=== PATIENT | female | born 1950 | race Hispanic/Latino ===

== ENCOUNTER 2016-08-29 14:44 | Emergency (ER) | payer MEDICARE, BC ==
[2016-08-29 15:18] VITALS: BMI 29.2
[2016-08-29 15:24] VITALS: TEMP 98; O2SAT 96
--- NOTE | 2016-08-29 15:25 | ED PDOC ---
Arrival/HPI - General Historian: Patient, Spouse <Dorian Ashford - Last Filed: 08/29/16 15:20> <Beckie Gomez - Last Filed: 08/29/16 17:29> - General Chief Complaint: Trauma Time Seen by Provider: 08/29/16 14:52 - History of Present Illness Narrative History of Present Illness (Text): 08/29/16 15:20 66 y/o female with hx coronary disease, PVD, DM, left BKA presenting with s/p fall at home. Patient states she was transferring from her walker to a chair when the walker slipped out from here causing her to fall. The patient fell onto her right hip. She is currently complaining right hip pain which is exacerbated with leg movement. Patient denies syncope, LOC, convulsions or focal deficits. She further denies back pain or neck pain. (Dorian Ashford) Past Medical History - Provider Review Nursing Documentation Reviewed: Yes - Infectious Disease Hx of Infectious Diseases: None - Tetanus Immunization Tetanus Immunization: Unknown - Cardiac Hx Hypertension: Yes - Pulmonary Hx Respiratory Disorders: No - Neurological Hx Neurological Disorder: Yes Hx Migraine: Yes Hx Transient Ischemic Attacks (TIA): Yes - HEENT Hx HEENT Disorder: Yes Hx Cataracts: Yes (right eye) - Renal Hx Renal Disorder: Yes - Endocrine/Metabolic Hx Diabetes Mellitus Type 2: Yes - Hematological/Oncological Hx Shingles: Yes (3 years ago) - Integumentary Hx Dermatological Disorder: No - Musculoskeletal/Rheumatological Hx Musculoskeletal Disorders: Yes Hx Falls: No Hx Unsteady Gait: Yes (left BKA 2 weeks ago,immobile) - Gastrointestinal Hx Gastrointestinal Disorders: Yes Hx Gastroesophageal Reflux: Yes Other/Comment: gastritis,colon polyps - Genitourinary/Gynecological Hx Genitourinary Disorders: No - Psychiatric Hx Psychophysiologic Disorder: Yes Hx Anxiety: Yes Hx Depression: Yes Hx Substance Use: No - Surgical History Hx Coronary Artery Bypass Graft: Yes - Anesthesia Hx Anesthesia Reactions: No Hx Malignant Hyperthermia: No - Suicidal Assessment Feels Threatened In Home Enviroment: No <Dorian Ashford - Last Filed: 08/29/16 15:20> Family/Social History Family/Social History: Unknown Family HX Smoking Status: Never Smoked Hx Alcohol Use: No Hx Substance Use: No Hx Substance Use Treatment: No <Dorian Ashford - Last Filed: 08/29/16 15:20> Allergies/Home Meds <MakedaDorian quiroz - Last Filed: 08/29/16 15:20> <Beckie Gomez - Last Filed: 08/29/16 17:29> Allergies/Adverse Reactions: Allergies No Known Allergies Allergy (Verified 08/29/16 15:27) Home Medications: Home Meds Medication Instructions Recorded Confirmed Aspirin [Aspir 81] 81 mg PO DAILY 10/12/13 08/29/16 Glipizide 10 mg PO BID 03/21/15 08/29/16 Insulin Human NPH [Humulin N] 10 units SC BID 07/24/15 08/29/16 Metformin HCl [Glucophage] 1,000 mg PO BID 07/24/15 08/29/16 Insulin Human Regular-MED [HumuLIN 0 units SC .LUNCH AND HS 08/03/15 08/29/16 R MED] ALPRAZolam [Xanax] 0.5 mg PO BID 08/29/16 08/29/16 Atorvastatin [Lipitor] 10 mg PO HS 08/29/16 08/29/16 Clopidogrel [Plavix] 75 mg PO DAILY 08/29/16 08/29/16 Review of Systems - Physician Review All systems were reviewed & negative as marked: Yes - Review of Systems Constitutional: absent: Fatigue, Fevers Eyes: Normal ENT: Normal Respiratory: absent: SOB, Cough Cardiovascular: absent: Chest Pain, Palpitations Gastrointestinal: absent: Abdominal Pain, Diarrhea, Nausea, Vomiting Genitourinary Female: absent: Dysuria, Frequency, Hematuria Musculoskeletal: Other (right hip pain ). absent: Back Pain, Neck Pain Skin: absent: Rash, Pruritis Neurological: absent: Headache Psychiatric: absent: Anxiety, Depression <Dorian Ashford - Last Filed: 08/29/16 15:20> Physical Exam Vital Signs Reviewed: Yes Temperature: Afebrile Blood Pressure: Normal Pulse: Regular Respiratory Rate: Normal Appearance: Positive for: Well-Appearing Pain Distress: Mild Mental Status: Positive for: Alert and Oriented X 3 - Systems Exam Head: Present: Atraumatic, Normocephalic Pupils: Present: PERRL Extroacular Muscles: Present: EOMI Conjunctiva: Present: Normal Mouth: Present: Moist Mucous Membranes Neck: Present: Normal Range of Motion Respiratory/Chest: Present: Clear to Auscultation, Good Air Exchange. No: Respiratory Distress Cardiovascular: Present: Regular Rate and Rhythm, Normal S1, S2 Abdomen: Present: Normal Bowel Sounds. No: Tenderness, Distention Upper Extremity: Present: Normal Inspection. No: Cyanosis, Edema Lower Extremity: Present: Edema, NORMAL PULSES, Neurovascularly Intact. No: Normal Inspection (left BKA with prosthetic. right leg with decreased ROM 2/2 pain. no gross deformity. ) Neurological: Present: GCS=15, CN II-XII Intact, Speech Normal. No: Motor Func Grossly Intact Skin: Present: Warm, Dry. No: Rashes Psychiatric: Present: Alert, Oriented x 3, Normal Insight, Normal Concentration <Dorian Ashford - Last Filed: 08/29/16 15:20> Vital Signs Temp Pulse Resp BP Pulse Ox 08/29/16 16:57 86 18 135/65 96 08/29/16 15:22 98.0 F 91 H 16 137/66 96 08/29/16 15:18 98.2 F 86 18 137/80 97 Medical Decision Making <Dorian Ashford - Last Filed: 08/29/16 15:20> <Beckie Gomez - Last Filed: 08/29/16 17:29> ED Course and Treatment: 08/29/16 15:28 66 y/o female with multiple medical problems including coronary disease, PVD, DM presenting s/p mechanical fall with right hip trauma. Patient has tenderness over lateral right hip. There is no gross deformity or malrotation. Leg is neurovascularly intact. - right pelvis xray w/3 views - right femor xray 2 view - Toradol for pain - reassess (Dorian Ashford) 08/29/16 17:25 Patient seen by resident and then evaluated by me. Patient is presenting after mechanical fall after transferring from wheelchair. She fell backwards hitting her R hip. She denies head trauma or LOC. The fall was witnessed. She is AAOx3 and is complaining of pinpoint pain to R hip. She has normal ROM of R leg. she has no other complaints. Xray negative for fracture. Had extensive conversation with the family. They report that patient is having more difficulty living with her aged at home but they report they are not ready to discuss usp care. They report that they have already tried PT/ OT. They report that they feel comfortable taking patient home and will follow- up with Dr. Hayes. They will return with any change. Transport arranged home 08/29/16 17:28 (Beckie Gomez) - RAD Interpretation Radiology Orders: 08/29/16 15:25 FEMUR MIN 2 VIEWS RT [RAD] Stat 08/29/16 15:32 Hip Right [HIP MIN 2V W/ PELVIS RT] [RAD] Stat - Medication Orders Current Medication Orders: Discontinued Medications Ketorolac Tromethamine (Toradol) 30 mg IVP STAT STA Stop: 08/29/16 15:20 Last Admin: 08/29/16 15:53 Dose: 30 MG IVP Administration Document 08/29/16 15:53 SF (Rec: 08/29/16 15:54 SF [id number] Charges for Administration # of IVP Administrations 1 Ketorolac Tromethamine (Toradol) 60 mg IM STAT STA Stop: 08/29/16 15:56 Disposition/Present on Arrival - Present on Arrival History of DVT/PE: No History of Uncontrolled Diabetes: No Urinary Catheter: No History Surgical Site Infection Following: Orthopedic Procedures <Dorian Ashford - Last Filed: 08/29/16 15:20> - Present on Arrival Any Indicators Present on Arrival: No - Disposition Have Diagnosis and Disposition been Completed?: Yes Disposition Time: 17:27 Patient Plan: Discharge <Beckie Gomez - Last Filed: 08/29/16 17:29> - Disposition Diagnosis: Hip pain, acute Disposition: HOME/ ROUTINE Condition: GOOD Discharge Instructions (ExitCare): Hip Pain (ED) Additional Instructions: Follow up with Dr. Hayes within 2 days. Return to ED if condition worsens. Motrin or tylenol for pain.
[2016-08-29 16:58] VITALS: BP 135/65; PULSE 86; RESP 18
--- NOTE | 2016-08-29 17:16 | RAD ---
PROCEDURE: Right Hip and pelvis Radiographs. HISTORY: hip pain after fall COMPARISON: None. FINDINGS: BONES: Normal. No fracture. JOINTS: Normal. SOFT TISSUES: Normal. OTHER FINDINGS: Vascular calcifications are seen. Some degenerative changes are seen around the greater trochanter IMPRESSION: No evidence of acute fracture
--- NOTE | 2016-08-29 17:20 | RAD ---
PROCEDURE: Right Femur Radiographs. HISTORY: fall with hip pain COMPARISON: None. TECHNIQUE: AP and Lateral Radiographs of the right femur. FINDINGS: FEMUR: Normal. No fracture. SOFT TISSUES: Normal. OTHER FINDINGS: None. IMPRESSION: Unremarkable radiographs of the right femur.
== END 2016-08-29 17:43 | disposition short-term general hospital (02) ==
LOC: ED 14:44
DX: M25.551 Pain in right hip (principal); I10 Essential (primary) hypertension; E11.9 Type 2 diabetes mellitus without complications; I73.9 Peripheral vascular disease, unspecified; Z89.512 Acquired absence of left leg below knee
CPT/HCPCS: 73502; 73552; 82948; 96372; 96374; 99285; J1885

== ENCOUNTER 2016-10-19 04:51 | Inpatient (IN) | payer MEDICARE, BC ==
[2016-10-19] MEDS ORDERED: Piperacill/Tazo 4.5gm in NS 4.5 GM/100 ML BAG IVPB STA (05:04)
[2016-10-19] MEDS ORDERED: Vancomycin 1gm in NS 250ml 1 GM/250 ML BAG IVPB STA (05:04)
[2016-10-19 05:19] LABS: ADD MANUAL DIFF? NO
[2016-10-19 05:21] LABS: VENOUS BLOOD GAS BASE EXCESS 1.2 mmol/L (0.0-2.0); VENOUS BLOOD PH 7.41 (7.32-7.43)
[2016-10-19 05:29] LABS: BASO # 0.03 K/mm3 (0.0-2.0); BASO % 0.2 % (0.0-3.0); EOS # 0.1 (0.0-0.7); EOS % 0.3 % (1.5-5.0); GRAN # 14.84 (1.4-6.5); GRAN % 84.2 % (50.0-68.0); HEMATOCRIT 40.8 % (36.0-48.0); LYMPH # 2.2 (1.2-3.4); LYMPH % 12.4 % (22.0-35.0); MEAN CELL VOLUME 85.9 fL (80.0-105.0); MEAN CORPUSCULAR HEMOGLOBIN 29.1 pg (25.0-35.0); MEAN CORPUSCULAR HGB CONC 33.8 g/dl (31.0-37.0); MEAN PLATELET VOLUME 10.9 fl (7.0-11.0); MONO # 0.5 (0.1-0.6); MONO % 2.9 % (1.0-6.0); PLATELET COUNT 327 10^3/uL (120.0-450.0); RED CELL DISTRIBUTION WIDTH 14.2 % (11.5-14.5); WHITE BLOOD COUNT 17.6 10^3/ul (4.5-11.0)
--- NOTE | 2016-10-19 05:32 | ED PDOC ---
Arrival/HPI - General Chief Complaint: Altered Mental Status Time Seen by Provider: 10/19/16 05:03 Historian: Patient, Family - History of Present Illness Narrative History of Present Illness (Text): 10/19/16 05:41 A 66 year old female, presents to the emergency department because of fever and altered mental status. Patient's daughter reports patient has been weak and lethargic throughout the day. Symptom Onset: Sudden Symptom Course: Unchanged Activities at Onset: Rest Context: Home Past Medical History - Provider Review Nursing Documentation Reviewed: Yes - Infectious Disease Hx of Infectious Diseases: None - Tetanus Immunization Tetanus Immunization: Unknown - Cardiac Hx Hypertension: Yes - Pulmonary Hx Respiratory Disorders: No - Neurological Hx Neurological Disorder: Yes Hx Migraine: Yes Hx Transient Ischemic Attacks (TIA): Yes - HEENT Hx HEENT Disorder: Yes Hx Cataracts: Yes (right eye) - Renal Hx Renal Disorder: Yes - Endocrine/Metabolic Hx Diabetes Mellitus Type 2: Yes - Hematological/Oncological Hx Shingles: Yes (3 years ago) - Integumentary Hx Dermatological Disorder: No - Musculoskeletal/Rheumatological Hx Musculoskeletal Disorders: Yes Hx Falls: No Hx Unsteady Gait: Yes (left BKA 2 weeks ago,immobile) - Gastrointestinal Hx Gastrointestinal Disorders: Yes Hx Gastroesophageal Reflux: Yes Other/Comment: gastritis,colon polyps - Genitourinary/Gynecological Hx Genitourinary Disorders: No - Psychiatric Hx Psychophysiologic Disorder: Yes Hx Anxiety: Yes Hx Depression: Yes Hx Substance Use: No - Surgical History Hx Coronary Artery Bypass Graft: Yes Hx Orthopedic Surgery: Yes (L BKA) - Anesthesia Hx Anesthesia Reactions: No Hx Malignant Hyperthermia: No - Suicidal Assessment Feels Threatened In Home Enviroment: No Family/Social History - Physician Review Nursing Documentation Reviewed: Yes Family/Social History: No Known Family HX Smoking Status: Never Smoked Hx Alcohol Use: No Hx Substance Use: No Hx Substance Use Treatment: No Allergies/Home Meds Allergies/Adverse Reactions: Allergies No Known Allergies Allergy (Verified 08/29/16 15:27) Home Medications: Home Meds Medication Instructions Recorded Confirmed Aspirin [Aspir 81] 81 mg PO DAILY 10/12/13 10/19/16 Glipizide 10 mg PO BID 03/21/15 10/19/16 Insulin Human NPH [Humulin N] 10 units SC BID 07/24/15 10/19/16 Metformin HCl [Glucophage] 1,000 mg PO BID 07/24/15 10/19/16 Insulin Human Regular-MED [HumuLIN 0 units SC TID 08/03/15 10/19/16 R MED] ALPRAZolam [Xanax] 0.5 mg PO HS 08/29/16 10/19/16 Atorvastatin [Lipitor] 10 mg PO HS 08/29/16 10/19/16 ALPRAZolam [Xanax] 1 tab PO DAILY 10/19/16 10/19/16 Review of Systems - Review of Systems Systems not reviewed;Unavailable: Altered Mental Status Physical Exam - Physical Exam Narrative Physical Exam (Text): 10/19/16 05:38- Review of Systems- unavailable due to patient AMS - Physical exam On physical exam, patient has a left BKA and no acute findings. Patient is following commands without difficulty. No focal neurological deficits. - Systems Exam Head: Present: Atraumatic, Normocephalic Pupils: Present: PERRL Extraocular Muscles: Present: EOMI Conjunctiva: Present: Normal Mouth: Present: Dry Mucous Membranes Neck: Present: Normal Range of Motion. No: MIDLINE TENDERNESS, Paraspinal Tenderness Respiratory/Chest: Present: Clear to Auscultation, Good Air Exchange. No: Respiratory Distress, Accessory Muscle Use, Tachypneic Cardiovascular: Present: Regular Rate and Rhythm, Normal S1, S2, Peripheral Pulses Present. No: Murmurs Abdomen: Present: Normal Bowel Sounds, No: Tenderness, Peritoneal Signs, Rebound, Guarding, Distention Back: Present: Normal Inspection. No: Midline Tenderness, Paraspinal Tenderness Upper Extremity: Present: Normal Inspection. No: Cyanosis, Edema Lower Extremity: No: Edema Neurological: Present: No focal neurological deficits. Skin: Present: Warm, Dry, Normal Color. No: Rashes Lymphatic: Present: OX3, NI, NC Psychiatric: Present: Alert, not agitated Vital Signs Reviewed: Yes Vital Signs Temp Pulse Resp BP Pulse Ox 10/19/16 07:33 100.5 F H 121 H 22 127/75 96 10/19/16 05:15 139/78 10/19/16 05:09 119 H 20 248/74 H 94 L 10/19/16 04:57 101.9 F H Temperature: Afebrile Blood Pressure: Normal Pulse: Tachycardic Appearance: Positive for: Ill-Appearing Mental Status: Positive for: Confused, Lethargic Finger Stick Blood Glucose: 390 Medical Decision Making ED Course and Treatment: 10/19/16 05:30 Impression: A 66 year old female with altered mental status, fever, lethargy. On physical exam, patient has a left BKA and no acute findings. Patient is following commands without difficulty. No focal neurological deficits. Differential Diagnosis include but are not limited to: sepsis vs. PNA vs. UTI vs. dehydration Plan: -- EKG -- chest xray -- Urinalysis -- labs -- IV fluids, Tylenol, Zosyn, Vancomycin -- Reassess and disposition Prior Visits: Notes and results from previous visits were reviewed. Patient last reported to the emergency department on 08/29/16 for evaluation after mechanical fall with right hip trauma. Patient was advised to follow up with Dr. Hayes. Progress Notes: EKG: Ordered, reviewed, and independently interpreted the EKG. Rate : 120 BPM Rhythm : Sinus Tachycardic Interpretation : No ST/T changes, normal axis, normal intervals. Comparison : No previous EKG for comparison. 10/19/16 07:23 Patient's chest x-ray shows mild cardiomegaly. R. lobar infiltrate. No effusions. Interpreted by me. harsha Herrera, states will let am wire bender hand know to evaluate pt's family has been updated on condition 10/19/16 08:[address] Esquivel, accepted to the MICU, asked to order CT head on the way up, along with stool for cdiff pt's family aware - Critical Care Critical Care Minutes: 30 minutes - Lab Interpretations Lab Results: 10/19/16 05:00 10/19/16 05:00 Lab Results 10/19/16 08:20: pO2 73 H, VBG pH 7.31 L, VBG pCO2 47.0, VBG HCO3 23.7, VBG Total CO2 25.1, VBG O2 Sat (Calc) 97.7 H, VBG Base Excess -2.9 L, VBG Potassium 4.0, Sodium 136.0, Chloride 100.0, Glucose 379 H, Lactate 4.0 H*, FiO2 21.0, Venous Blood Potassium 4.0 10/19/16 05:59: Urine Color Yellow, Urine Appearance Clear, Urine pH 6.5, Ur Specific [place] 1.015, Urine Protein 100 H, Urine Glucose (UA) >=1000, Urine Ketones 15 H, Urine Blood Trace-intact H, Urine Nitrate Negative, Urine Bilirubin Negative, Urine Urobilinogen 0.2, Ur Leukocyte Esterase Negative, Urine RBC 0 - 2, Urine WBC 0 - 2, Ur Epithelial Cells None, Urine Bacteria Few 10/19/16 05:00: Sodium 134, Chloride 93 L, Potassium 4.2, Carbon Dioxide 23, Anion Gap 22 H, BUN 16, Creatinine 0.6, Est GFR ( Amer) > 60, Est GFR ( Non-Af Amer) > 60, Random Glucose 388 H* D, Calcium 10.0, Phosphorus 4.1, Magnesium 1.3 L, Total Bilirubin 1.0, AST 31, ALT 29, Alkaline Phosphatase 103, Total Protein 8.4 H, Albumin 4.9 H, Globulin 3.6, Albumin/Globulin Ratio 1.4 10/19/16 05:00: pO2 133 H, VBG pH 7.41, VBG pCO2 41.0, VBG HCO3 26.0, VBG Total CO2 27.3, VBG O2 Sat (Calc) 100.0 H, VBG Base Excess 1.2, VBG Potassium 4.1, Sodium 136.0, Chloride 95.0 L, Glucose 382 H, Lactate 4.7 H*, FiO2 21.0, Venous Blood Potassium 4.1 10/19/16 05:00: PT 10.8, INR 1.00, APTT 22.7 L 10/19/16 05:00: WBC 17.6 H D, RBC 4.75, Hgb 13.8, Hct 40.8, MCV 85.9, MCH 29.1, MCHC 33.8, RDW 14.2, Plt Count 327, MPV 10.9, Gran % 84.2 H, Lymph % (Auto) 12.4 L, [place] % (Auto) 2.9, Eos % (Auto) 0.3 L, Baso % (Auto) 0.2, Gran # 14.84 H , Lymph # 2.2, [place] # 0.5, Eos # 0.1, Baso # 0.03 I have reviewed the lab results: Yes - RAD Interpretation Radiology Orders: 10/19/16 05:04 CHEST PORTABLE [RAD] Stat 10/19/16 08:37 HEAD W/O CONTRAST [CT] Stat - EKG Interpretation Interpreted by ED Physician: Yes Type: 12 lead EKG - Medication Orders Current Medication Orders: Discontinued Medications Acetaminophen (Tylenol 650 Mg Supp) 650 mg RC STAT STA Stop: 10/19/16 05:12 Last Admin: 10/19/16 05:58 Dose: 650 mg Sodium Chloride 2,200 ml/ IV (SUPPLIES) 2,200 mls @ 4,300.08 mls/hr IV ONCE ONE PRN Reason: 60 ML/KG/HR Stop: 10/19/16 05:05 Last Admin: 10/19/16 05:30 Dose: 4,300.08 mls/hr Vancomycin HCl (Vancomycin 1gm) 1 gm in 250 mls @ 167 mls/hr IVPB STAT STA PRN Reason: Protocol Stop: 10/19/16 06:33 Last Admin: 10/19/16 06:52 Dose: 167 mls/hr Piperacillin Sod/Tazobactam Sod (Zosyn 4.5 Gm In Ns 100ml) 4.5 gm in 100 mls @ 200 mls/hr IVPB STAT STA PRN Reason: Protocol Stop: 10/19/16 05:33 Last Admin: 10/19/16 05:58 Dose: 200 mls/hr Sodium Chloride (Sodium Chloride 0.9%) 1,000 mls @ 1,000 mls/hr IV .Q1H STA Stop: 10/19/16 07:58 Last Admin: 10/19/16 07:08 Dose: 1,000 mls/hr Ondansetron HCl (Zofran Inj) Confirm Administered Dose 4 mg .ROUTE .STK-MED ONE Stop: 10/19/16 05:14 - Scribe Statement The provider has reviewed the documentation as recorded by the Scribe Tushar Real All medical record entries made by the Scribe were at my direction and personally dictated by me. I have reviewed the chart and agree that the record accurately reflects my personal performance of the history, physical exam, medical decision making, and the department course for this patient. I have also personally directed, reviewed, and agree with the discharge instructions and disposition. Disposition/Present on Arrival - Present on Arrival Any Indicators Present on Arrival: No History of DVT/PE: No History of Uncontrolled Diabetes: No Urinary Catheter: No History of Decub. Ulcer: No History Surgical Site Infection Following: Orthopedic Procedures - Disposition Have Diagnosis and Disposition been Completed?: Yes Diagnosis: Sepsis Disposition: HOSPITALIZED Disposition Time: 08:40 Patient Problems: Current Active Problems Problem Status Onset Sepsis Acute Condition: SERIOUS Discharge Instructions (ExitCare): Sepsis (ED) Referrals: Inderjit Hayes MD [Primary Care Provider] - Follow up with primary
[2016-10-19 05:36] LABS: ALB/GLOB RATIO 1.4 (1.1-1.8); ALKALINE PHOSPHATASE 103 U/L (38-133); ALT/SGPT 29 U/L (7-56); AST/SGOT 31 U/L (15-39); BLOOD UREA NITROGEN 16 mg/dL (7-21); CARBON DIOXIDE 23 mmol/L (21-33); CHLORIDE 93 mmol/L (98-107); GFR AFRICAN-AMERICAN > 60; MAGNESIUM 1.3 mg/dL (1.7-2.2); PHOSPHOROUS 4.1 mg/dL (2.5-4.5); POTASSIUM 4.2 mmol/L (3.6-5.0); SODIUM 134 mmol/L (132-148); TOTAL PROTEIN 8.4 g/dL (5.8-8.3)
[2016-10-19 05:47] LABS: PARTIAL THROMBOPLASTIN TIME 22.7 Seconds (23.7-30.8)
[2016-10-19 06:06] LABS: GLUCOSE,RANDOM 388 mg/dL (70-110)
[2016-10-19 06:10] LABS: PH,URINE 6.5 (4.7-8.0); URINE BILIRUBIN NEGATIVE (NEGATIVE); URINE BLOOD TRACE-INTACT (NEGATIVE); URINE GLUCOSE (UA) >=1000 mg/dL (NEGATIVE); URINE KETONE 15 mg/dL (NEGATIVE); URINE LEUKOCYTE ESTERASE NEGATIVE Leu/uL (NEGATIVE); URINE PROTEIN 100 mg/dL (<30 mg/dL); URINE UROBILINOGEN 0.2 E.U./dL (<1 E.U./dL)
[2016-10-19 06:18] LABS: URINE APPEARANCE CLEAR (CLEAR); URINE COLOR YELLOW (YELLOW)
[2016-10-19 06:22] LABS: URINE BACTERIA FEW (NEG); URINE RBC 0 - 2 /hpf (0-2); URINE WBC 0 - 2 /hpf (0-6)
[2016-10-19] MEDS ORDERED: Sodium Chloride 0.9% 1,000 ML IV STA (06:59)
[2016-10-19 08:29] LABS: VENOUS BLOOD GAS BASE EXCESS -2.9 mmol/L (0.0-2.0); VENOUS BLOOD PH 7.31 (7.32-7.43)
--- NOTE | 2016-10-19 08:36 | RAD ---
HISTORY: Sepsis Patient COMPARISON: 08/14/2015 FINDINGS: LUNGS: No active pulmonary disease. PLEURA: No significant pleural effusion identified, no pneumothorax apparent. CARDIOVASCULAR: Mild cardiomegaly. Moderate vascular congestion OSSEOUS STRUCTURES: Sternal wires VISUALIZED UPPER ABDOMEN: Normal. OTHER FINDINGS: None. IMPRESSION: Moderate vascular congestion
--- NOTE | 2016-10-19 09:51 | CT ---
PROCEDURE: CT HEAD WITHOUT CONTRAST. HISTORY: AMS COMPARISON: 08/14/2015 TECHNIQUE: Axial computed tomography images were obtained through the head/brain without intravenous contrast. Radiation dose: Total exam DLP = 745 mGy-cm. This CT exam was performed using one or more of the following dose reduction techniques: Automated exposure control, adjustment of the mA and/or kV according to patient size, and/or use of iterative reconstruction technique. FINDINGS: HEMORRHAGE: No intracranial hemorrhage. BRAIN: No mass effect or edema. No atrophy or chronic microvascular ischemic changes. VENTRICLES: Unremarkable. No hydrocephalus. CALVARIUM: Unremarkable. PARANASAL SINUSES: Unremarkable as visualized. No significant inflammatory changes. MASTOID AIR CELLS: Unremarkable as visualized. No inflammatory changes. OTHER FINDINGS: None. IMPRESSION: No acute findings
[2016-10-19] MEDS ORDERED: Magnesium Sulfate 1 gm in D5W 1 GM/100 ML BAG IVPB ONE (10:08)
[2016-10-19] MEDS ORDERED: Metoprolol 1 mg/ml Inj IVP PRN (10:09)
[2016-10-19] MEDS ORDERED: metroNIDAZOLE IV 500 mg/100 ml 500 MG/100 ML BAG IVPB STA (10:18)
[2016-10-19] MEDS: Insulin Reg-MEDIUM-Coverage SC SCH ×3 (10:42→17:29)
--- NOTE | 2016-10-19 11:14 | CP.PCM.CON ---
History of Present Illness - History of Present Illness History of Present Illness: 66 y/o F who presented to the ER w/ 1 day of vomiting and increased stool output per the daughter. The patient has been more lethargic and minimally verbal . No complaints of feers, cough, sob or CP noted. In the ER was found to have an elevated TEMP, WBC and concern for infection. Upon examining the patient there isn't a direct source of infection but intra abdominal causes would be highly likely. Review of Systems - Review of Systems Systems not reviewed;Unavailable: Altered Mental Status Past Patient History - Infectious Disease Hx of Infectious Diseases: None - Tetanus Immunizations Tetanus Immunization: Unknown - Past Social History Smoking Status: Never Smoked - CARDIAC Hx Hypertension: Yes - PULMONARY Hx Respiratory Disorders: No - NEUROLOGICAL Hx Neurological Disorder: Yes Hx Migraine: Yes Hx Transient Ischemic Attacks (TIA): Yes - HEENT Hx HEENT Problems: Yes Hx Cataracts: Yes (right eye) - RENAL Hx Chronic Kidney Disease: Yes - ENDOCRINE/METABOLIC Hx Diabetes Mellitus Type 2: Yes - HEMATOLOGICAL/ONCOLOGICAL Hx Shingles: Yes (3 years ago) - INTEGUMENTARY Hx Dermatological Problems: No - MUSCULOSKELETAL/RHEUMATOLOGICAL Hx Musculoskeletal Disorders: Yes Hx Falls: No Hx Unsteady Gait: Yes (left BKA 2 weeks ago,immobile) - GASTROINTESTINAL Hx Gastrointestinal Disorders: Yes Hx Gastroesophageal Reflux: Yes Other/Comment: gastritis,colon polyps - GENITOURINARY/GYNECOLOGICAL Hx Genitourinary Disorders: No - PSYCHIATRIC Hx Psychophysiologic Disorder: Yes Hx Anxiety: Yes Hx Depression: Yes Hx Substance Use: No - SURGICAL HISTORY Hx Coronary Artery Bypass Graft: Yes Hx Orthopedic Surgery: Yes (L BKA) - ANESTHESIA Hx Anesthesia Reactions: No Hx Malignant Hyperthermia: No Meds Allergies/Adverse Reactions: Allergies Allergy/AdvReac Type Severity Reaction Status Date / Time No Known Allergies Allergy Verified 08/29/16 15:27 - Medications Medications: Current Medications Acetaminophen (Tylenol 650 Mg Supp) 650 mg RC Q6H PRN PRN Reason: Fever >100.4 F Metronidazole (Flagyl) 500 mg in 100 mls @ 100 mls/hr IVPB STAT STA PRN Reason: Protocol Stop: 10/19/16 11:17 Last Admin: 10/19/16 10:43 Dose: 100 mls/hr Insulin Human Regular (Humulin R Med) 0 units SC Q6 KULWANT PRN Reason: Protocol Last Admin: 10/19/16 10:42 Dose: Not Given Metoprolol Tartrate (Lopressor) 5 mg IVP Q3H PRN PRN Reason: Systolic Blood Pressure Last Admin: 10/19/16 10:25 Dose: 5 mg Physical Exam - Constitutional Appears: Unkempt - Head Exam Head Exam: NORMAL INSPECTION - Eye Exam Eye Exam: Normal appearance - ENT Exam ENT Exam: Mucous Membranes Dry - Neck Exam Neck exam: Positive for: Normal Inspection - Respiratory Exam Respiratory Exam: Clear to Auscultation Bilateral, NORMAL BREATHING PATTERN - Cardiovascular Exam Cardiovascular Exam: REGULAR RHYTHM - GI/Abdominal Exam GI & Abdominal Exam: Normal Bowel Sounds, Soft, Tenderness - Rectal Exam Rectal Exam: NORMAL INSPECTION - Exam External exam: NORMAL EXTERNAL EXAM - Extremities Exam Extremities exam: Positive for: normal inspection - Back Exam Back exam: NORMAL INSPECTION - Neurological Exam Neurological exam: Altered, CN II-XII Intact (opens eyes minimally . Non verbal , protects airway ) - Skin Skin Exam: Normal Color Results - Vital Signs Recent Vital Signs: Last Vital Signs Temp 100.5 F H 10/19/16 07:33 Pulse 97 H 10/19/16 10:45 Resp 23 10/19/16 10:45 BP 149/43 L 10/19/16 10:45 Pulse Ox 100 10/19/16 10:45 - Labs Result Diagrams: 10/19/16 05:00 10/19/16 05:00 Labs: Laboratory Results - last 24 hr 10/19/16 10:38 Troponin I 0.02 D Assessment & Plan - Assessment and Plan (Free Text) Assessment: 66 y/o F w/ SIRS and possible Sepsis Source identified. Elevated WBC and given Broad spectrum abx w Gram + and - coverage. Also started on Flagyl for anaerobes. Concern for intra abdominal source. Ct abd/ pelvis for later today C. DIff sent from stool May need ID and GI consult. Volume given w/ 3L of N.S making adequate Urine. ABG reviewed, w/ mild Resp acidosis mental status poor, CT head negative. Likely from Metabolic causes. If fevers return and no source is found, LP can be considered. Follow up labs and cx and treatment to be adjusted. dvt p Heparin sq tid CC time 65 min
[2016-10-19] MEDS: Piperacillin/Tazobact 3.375 gm 100 ML IVPB SCH ×2 (13:00→17:33)
[2016-10-19] MEDS ORDERED: Barium Sulfate Susp 2.1% w/v, 2.0% w/w 450 mL Bottle PO ONE (13:30)
[2016-10-19 13:42] VITALS: BMI 28.9
[2016-10-19] MEDS ORDERED: Pneumococcal 23-Valent Vaccine IM ONE (13:42)
--- NOTE | 2016-10-19 14:07 | CARD ---
APPROVED REPORT EKG Measurement Heart [id number] <Conclusion> Sinus tachycardia Nonspecific ST and T wave abnormality Abnormal ECG
[2016-10-19] MEDS ORDERED: Iohexol 240 (50 ml) ONE (14:08)
--- NOTE | 2016-10-19 14:45 | RAD ---
HISTORY: NGT placement COMPARISON: Earlier same day FINDINGS: LUNGS: Moderate vascular congestion unchanged PLEURA: No significant pleural effusion identified, no pneumothorax apparent. CARDIOVASCULAR: Mild cardiomegaly OSSEOUS STRUCTURES: No significant abnormalities. VISUALIZED UPPER ABDOMEN: Nasogastric tube in satisfactory position OTHER FINDINGS: None. IMPRESSION: Nasogastric tube in satisfactory position
--- NOTE | 2016-10-19 17:30 | CT ---
PROCEDURE: CT Abdomen and Pelvis without intravenous contrast HISTORY: sepsis COMPARISON: None. TECHNIQUE: Without contrast.. Contrast Dose: Radiation dose: Total exam DLP = 879 mGy-cm. This CT exam was performed using one or more of the following dose reduction techniques: Automated exposure control, adjustment of the mA and/or kV according to patient size, and/or use of iterative reconstruction technique. FINDINGS: LOWER THORAX: Unremarkable. LIVER: Unremarkable. No gross lesion or ductal dilatation. GALLBLADDER AND BILE DUCTS: Gallstones. No inflammation PANCREAS: Atrophy of the pancreas with fatty infiltration SPLEEN: Unremarkable. ADRENALS: Unremarkable. No mass. KIDNEYS AND URETERS: Unremarkable. No hydronephrosis. No solid mass. Renal artery calcifications VASCULATURE: Unremarkable. No aortic aneurysm. BOWEL: Unremarkable. No obstruction. No gross mural thickening. APPENDIX: Unremarkable. Normal appendix. PERITONEUM: Unremarkable. No free fluid. No free air. LYMPH NODES: Unremarkable. No enlarged lymph nodes. BLADDER: There is a Roman catheter in the bladder. REPRODUCTIVE: Unremarkable. BONES: No acute fracture. OTHER FINDINGS: None. IMPRESSION: No acute findings
--- NOTE | 2016-10-19 18:55 | CON ---
DATE: 10/19/2016 The patient is seen in the ICU 128, bed 7. CHIEF COMPLAINT: Respiratory failure, shortness of breath x 1 day. HISTORY OF PRESENT ILLNESS: This is a 66-year-old female who was recently in the hospital, patient w ith a past medical history of diabetes mellitus, high cholesterol, hypertension, peripheral vascular disease, coronary artery disease, chronic back pain, fibrocystic breast disease, zoster, anxiety, his tory of methicillin-resistant Staphylococcus aureus, history of Enterobacter, also had left popliteal bypass graft done by Dr. Maral Segura, left popliteal dorsalis pedis bypass. The patient had a lef t [id number] amputation actually done by Dr. Maral Segura on 07/28/2015. The patient is admitted now through the Emergency Room today. Was seen by Dr. Silverman for change of mental status and patie nt is weak and lethargic, was found to have a fever of 101.9 and infectious disease consultation requ ested. The patient, at this time, is a poor historian. There has been fever reported. The patient is short of breath. There has been no abdominal pain or diarrhea reported. PAST MEDICAL HISTORY: Significant for diabetes, high cholesterol, hypertension, peripheral vascular disease, coronary artery disease, chronic back pain, fibrotic breast disease, zoster, anxiety, MRSA, Enterobacter infections. PAST SURGICAL HISTORY: Significant for left popliteal dorsalis pedis bypass and a left below-knee am putation on 07/28/2015. ALLERGIES: The patient has no known allergies. MEDICATIONS AT HOME: Include Xanax, insulin, Lipitor, metformin, aspirin, glipizide. PHYSICAL EXAMINATION: GENERAL: She is seen in the ICU in 128, bed 7, earlier, weak. VITAL SIGNS: T-max of 102.4, heart rate of 113, respiratory rate of 24, blood pressure is 130/40. HEENT: Unremarkable. NECK: Supple. LUNGS: Have decreased breath sounds. HEART: Normal S1, S2. ABDOMEN: Soft, nontender. EXTREMITIES: The stump is clean. No evidence of infection. LABORATORY EXAMINATION: Reveals a white count of 17,600, hemoglobin of 13. Chemistries are noted. The patient has a glucose of 388. Procalcitonin is less than 0.05. BUN of 16, creatinine of 0.6. U rinalysis is unremarkable 0-2 WBCs. The patient also had a chest x-ray which was reported to be nega tive. CAT scan of the head with no acute findings. Dr. Esquivel's consultation is reviewed. The patien t had a repeat chest x-ray. ASSESSMENT AND PLAN: A 66-year-old female with diabetes, high cholesterol, hypertension, peripheral vascular disease, coronary artery disease, chronic back pain, fibrocystic breast disease, zoster, anx iety, history of methicillin-resistant Staphylococcus aureus and Enterobacter, history of left below- the-knee amputation, now presenting with leukocytosis, fever, tachycardia, hypoxia with systemic infl ammatory response syndrome with a negative chest x-ray, negative procalcitonin, negative urinalysis. Must rule out gastrointestinal as the source of possible sepsis. We will treat the patient with van comycin and Zosyn, must rule out bacteremia from a graft. Pending blood cultures, urine cultures, a CAT scan of the abdomen and pelvis. We will make further recommendations upon availability. Case di scussed with the staff on the ICU at length. Magdiel Weston MD cc: 350 TT: 10/19/2016 18:55:18 Confirmation # [id number] Dictation # [id number] dulce
[2016-10-19] MEDS: Sodium Chloride 0.9% 1,000 ML IV SCH (19:30)
[2016-10-19] MEDS ORDERED: Vancomycin 1gm in NS 250ml 1 GM/250 ML BAG IVPB SCH (22:00)
[2016-10-20] MEDS: Insulin Reg-MEDIUM-Coverage SC SCH ×4 (00:07→16:59)
[2016-10-20] MEDS: Piperacillin/Tazobact 3.375 gm 100 ML IVPB SCH ×5 (00:11→23:21)
[2016-10-20] MEDS: Sodium Chloride 0.9% 1,000 ML IV SCH (06:00)
[2016-10-20 06:05] LABS: ADD MANUAL DIFF? NO
[2016-10-20 06:13] LABS: BASO # 0.02 K/mm3 (0.0-2.0); BASO % 0.2 % (0.0-3.0); EOS # 0.2 (0.0-0.7); EOS % 1.3 % (1.5-5.0); GRAN # 8.94 (1.4-6.5); GRAN % 76.5 % (50.0-68.0); HEMATOCRIT 31.2 % (36.0-48.0); LYMPH # 1.8 (1.2-3.4); LYMPH % 15.3 % (22.0-35.0); MEAN CELL VOLUME 85.7 fL (80.0-105.0); MEAN CORPUSCULAR HEMOGLOBIN 28.6 pg (25.0-35.0); MEAN CORPUSCULAR HGB CONC 33.3 g/dl (31.0-37.0); MEAN PLATELET VOLUME 10.6 fl (7.0-11.0); MONO # 0.8 (0.1-0.6); MONO % 6.7 % (1.0-6.0); PLATELET COUNT 226 10^3/uL (120.0-450.0); RED CELL DISTRIBUTION WIDTH 14.4 % (11.5-14.5); WHITE BLOOD COUNT 11.7 10^3/ul (4.5-11.0)
[2016-10-20 06:26] LABS: ALB/GLOB RATIO 1.3 (1.1-1.8); ALKALINE PHOSPHATASE 73 U/L (38-133); ALT/SGPT 32 U/L (7-56); AST/SGOT 27 U/L (15-39); BLOOD UREA NITROGEN 15 mg/dL (7-21); CALCIUM 8.4 mg/dL (8.4-10.5); CARBON DIOXIDE 28 mmol/L (21-33); CHLORIDE 99 mmol/L (95-110); GFR AFRICAN-AMERICAN > 60; GLUCOSE,RANDOM 197 mg/dL (70-110); MAGNESIUM 1.6 mg/dL (1.7-2.2); PHOSPHOROUS 3.7 mg/dL (2.5-4.5); SODIUM 135 mmol/L (132-148); TOTAL PROTEIN 6.8 g/dL (5.8-8.3)
[2016-10-20] MEDS ORDERED: Potassium Chloride 40 mEq/30 ml LIQ UD PO ONE (06:51)
[2016-10-20 07:25] LABS: POTASSIUM 2.8 mmol/L (3.6-5.0)
--- NOTE | 2016-10-20 09:39 | PN ---
DATE: 10/20/2016 SUBJECTIVE: The patient is in bed in no acute distress, nontoxic. She appears to be awake and alert . Her temperature is down. She recognizes me, and she knows where she is. She knows her name. PHYSICAL EXAMINATION: VITAL SIGNS: Temperature is 98, and T-max yesterday was 102.4. Blood pressure is 148/60, respirator y rate of 25, heart rate of 91. HEENT: Unremarkable. NECK: Supple. LUNGS: Have decreased breath sounds. HEART: Normal S1, S2. ABDOMEN: Soft, nontender. LABORATORY EXAMINATION: Reveals the white count is down from 17,600-11,700. Hemoglobin is 10, plate lets of 226, and the granulocytes 76%, granulocytosis. Chemistries reveal the BUN of 15, creatinine of 0.7. The patient's procalcitonin is less than 0.05. Urinalysis is noted to be unremarkable. Kwaku robiology reveals the blood cultures are negative. The patient had a CAT scan of the abdomen and pelvis with p.o. contrast only, read by Dr. Farrukh larios, and the impression is no acute findings. The spleen is unremarkable, and the gallbladder is just gallstones, but no inflammation is noted. Lower thorax is unremarkable. The patient also had a chest x-ray - vascular congestion. ASSESSMENT AND PLAN: A 66-year-old female admitted yesterday with past medical history of diabetes, high cholesterol, hypertension, peripheral vascular disease, coronary artery disease, chronic back pa in, fibrocystic breast disease, history of zoster, history of anxiety, history of methicillin-resista nt Staphylococcus aureus and Enterobacter. The patient also had a history of left popliteal bypass g raft done by Dr. Maral Segura, left popliteus dorsalis pedis bypass, also with a history of left bel ow-knee amputation, and admitted yesterday with, now with systemic inflammatory response syndrome wit h a fever, tachycardia, dyspnea, leukocytosis. Thus far, culture is negative. Procalcitonin is nega tive. CAT scan of the abdomen is negative. Chest x-ray is negative. The patient appears to be improving. No obvious source. On vancomycin and Zosyn. Since the blood c ultures are reported to be no growth at 24 hours, we will discontinue the vancomycin, continue the Zo syn for now. In the next 24-48 hours, if cultures are negative, we will discontinue Zosyn also. Magdiel Weston MD cc: 350 TT: 10/20/2016 09:39:13 Confirmation # [id number] Dictation # [id number] elsa
--- NOTE | 2016-10-20 13:11 | CP.CCUPN ---
<Elaine Beckett - Last Filed: 10/20/16 13:36> CCU Subjective - Physician Review Events Since Last Encounter (Free Text): 10/20/16 13:06 AMS resolving, pt now talking Subjective (Free Text): 10/20/16 13:06 Critical care progress note for Dr. Bala Beckett, PGY-1 Pt S & E at bedside this AM. Pt now verbal, asking for family/food. Does not know how she got to hospital or ICU. Reports productive cough, RLQ abdominal pain when touched, some nausea overnight. Requesting to have NGT removed. Denies emesis, F/C/, SOB, CP, other complaints. CCU Objective - Vital Signs / Intake & Output Vital Signs (Last 4 hours): Vital Signs Pulse Resp BP Pulse Ox 10/20/16 12:50 86 24 93 L 10/20/16 12:40 84 18 94 L 10/20/16 12:30 84 18 99 10/20/16 12:20 92 H 19 95 10/20/16 12:18 93 H 11 L 136/50 L 92 L 10/20/16 12:12 21 95 10/20/16 12:00 99 H 55 H 10/20/16 11:50 91 H 17 96 10/20/16 11:40 89 29 H 98 10/20/16 11:30 92 H 19 98 10/20/16 11:20 86 6 L 98 10/20/16 11:10 89 36 H 99 10/20/16 11:02 91 H 133/54 L 98 10/20/16 11:00 90 20 99 10/20/16 10:50 87 74 H 99 10/20/16 10:40 91 H 23 96 10/20/16 10:30 89 19 95 10/20/16 10:20 89 16 96 10/20/16 10:10 83 17 98 10/20/16 10:01 85 23 133/45 L 96 10/20/16 10:00 81 99 H 100 10/20/16 09:50 95 10/20/16 09:40 92 H 46 H 96 10/20/16 09:30 95 H 99 H 97 10/20/16 09:20 101 H 37 H 96 10/20/16 09:10 98 H 17 91 L Intake and Output (Last 8hrs): Intake & Output 10/19/16 10/20/16 10/20/16 22:59 06:59 14:59 Intake Total 4800 1100 Output Total 2150 450 Balance 2650 650 Weight 69.853 kg Intake: IV 4000 1100 Right Forearm 4000 1100 Oral 800 0 Output: Urine 2150 450 Urethral (Roman) 2150 450 Stool 0 Other: Voiding Method Indwelling Catheter Indwelling Catheter # Bowel Movements 0 - Physical Exam Head: Positive for: Atraumatic, Normocephalic Pupils: Positive for: PERRL Extroacular Muscles: Positive for: EOMI Conjunctiva: Positive for: Normal Ears: Positive for: Normal Mouth: Positive for: Moist Mucous Membranes Nose (External): Positive for: Atraumatic, Other (NGT in place) Neck: Positive for: Normal Range of Motion Respiratory/Chest: Positive for: Clear to Auscultation, Good Air Exchange. Negative for: Respiratory Distress, Accessory Muscle Use, Wheezes, Rales, Retracting, Rhonchi, Tachypneic Cardiovascular: Positive for: Regular Rate and Rhythm, Normal S1, S2. Negative for: Murmurs Abdomen: Positive for: Tenderness (RLQ), Normal Bowel Sounds. Negative for: Distention (obese), Peritoneal Signs Upper Extremity: Positive for: Normal Inspection, Normal ROM. Negative for: Cyanosis, Edema, Erythema Lower Extremity: Positive for: Other (L BKA, stump well healed). Negative for: Edema, Tenderness, Swelling, Erythema Neurological: Positive for: GCS=15, CN II-XII Intact, Speech Normal Skin: Positive for: Warm, Dry, Normal Color. Negative for: Rashes Psychiatric: Positive for: Alert, Oriented x 3, Normal Insight, Normal Concentration - Medications Active Medications: Active Medications Generic Name Dose Route Start Last Admin Trade Name Freq PRN Reason Stop Dose Admin Acetaminophen 650 mg 10/19/16 10:15 Tylenol 650 Mg Supp RC Q6H PRN Fever >100.4 F Alprazolam 0.5 mg 10/20/16 22:00 Xanax PO HS [facility] Aspirin 81 mg 10/20/16 13:00 Ecotrin PO DAILY [facility] Atorvastatin Calcium 10 mg 10/20/16 22:00 Lipitor PO HS [facility] Heparin Sodium (Porcine) 5,000 units 10/19/16 22:00 10/20/16 05:20 Heparin SC 5,000 units Q8 [facility] Administration Protocol Piperacillin Sod/Tazobactam Sod 100 mls @ 200 mls/hr 10/19/16 12:00 10/20/16 05:18 Zosyn 3.375 In Ns 100ml IVPB 11/02/16 12:01 200 mls/hr Q6 [facility] Administration Protocol Sodium Chloride 1,000 mls @ 100 mls/hr 10/19/16 19:30 10/20/16 06:00 Sodium Chloride 0.9% IV 100 mls/hr .Q10H [facility] Administration Insulin Human Regular 0 units 10/19/16 10:15 10/20/16 05:52 Humulin R Med SC Not Given Q6 [facility] Protocol Metoprolol Tartrate 5 mg 10/19/16 10:09 10/19/16 10:25 Lopressor IVP 5 mg Q3H PRN Administration Systolic Blood Pressure Ondansetron HCl 4 mg 10/19/16 18:01 10/20/16 03:48 Zofran Inj IVP 4 mg Q6H PRN Administration Nausea/Vomiting Pantoprazole Sodium 40 mg 10/21/16 06:30 Protonix Ec Tab PO 0630 [facility] Pantoprazole Sodium 40 mg 10/20/16 13:15 Protonix Inj IVP 10/20/16 13:16 ONCE ONE - Patient Studies Lab Studies: Lab Studies 10/20/16 10/20/16 10/20/16 Range/Units 05:30 05:30 05:30 WBC 11.7 H D (4.5-11.0) 10^3/ul RBC 3.64 (3.5-6.1) 10^6/uL Hgb 10.4 L (12.0-16.0) gm/dL Hct 31.2 L (36.0-48.0) % MCV 85.7 (80.0-105.0) fL MCH 28.6 (25.0-35.0) pg MCHC 33.3 (31.0-37.0) g/dl RDW 14.4 (11.5-14.5) % Plt Count 226 (120.0-450.0) 10^3/uL MPV 10.6 (7.0-11.0) fl Gran % 76.5 H (50.0-68.0) % Lymph % (Auto) 15.3 L (22.0-35.0) % [place] % (Auto) 6.7 H (1.0-6.0) % Eos % (Auto) 1.3 L (1.5-5.0) % Baso % (Auto) 0.2 (0.0-3.0) % Gran # 8.94 H (1.4-6.5) Lymph # 1.8 (1.2-3.4) [place] # 0.8 H (0.1-0.6) Eos # 0.2 (0.0-0.7) Baso # 0.02 (0.0-2.0) K/mm3 APTT 24.7 (23.7-30.8) Seconds Sodium 135 (132-148) mmol/L Potassium 2.8 L* D (3.6-5.0) mmol/L Chloride 99 (95-110) mmol/L Carbon Dioxide 28 (21-33) mmol/L Anion Gap 11 (10-20) BUN 15 (7-21) mg/dL Creatinine 0.7 (0.5-1.4) mg/dL Est GFR ( Amer) > 60 Est GFR (Non-Af Amer) > 60 POC Glucose (mg/dL) (65-110) mg/dL Random Glucose 197 H (70-110) mg/dL Lactic Acid (0.7-2.1) mmol/L Calcium 8.4 (8.4-10.5) mg/dL Phosphorus 3.7 (2.5-4.5) mg/dL Magnesium 1.6 L (1.7-2.2) mg/dL Total Bilirubin 1.0 (0.2-1.3) mg/dL AST 27 (15-39) U/L ALT 32 (7-56) U/L Alkaline Phosphatase 73 (38-133) U/L Total Protein 6.8 (5.8-8.3) g/dL Albumin 3.8 (3.0-4.8) g/dL Globulin 3.0 gm/dL Albumin/Globulin Ratio 1.3 (1.1-1.8) Procalcitonin (0.19-0.49) NG/ML 10/20/16 10/20/16 10/19/16 Range/Units 05:11 00:02 21:56 WBC (4.5-11.0) 10^3/ul RBC (3.5-6.1) 10^6/uL Hgb (12.0-16.0) gm/dL Hct (36.0-48.0) % MCV (80.0-105.0) fL MCH (25.0-35.0) pg MCHC (31.0-37.0) g/dl RDW (11.5-14.5) % Plt Count (120.0-450.0) 10^3/uL MPV (7.0-11.0) fl Gran % (50.0-68.0) % Lymph % (Auto) (22.0-35.0) % [place] % (Auto) (1.0-6.0) % Eos % (Auto) (1.5-5.0) % Baso % (Auto) (0.0-3.0) % Gran # (1.4-6.5) Lymph # (1.2-3.4) [place] # (0.1-0.6) Eos # (0.0-0.7) Baso # (0.0-2.0) K/mm3 APTT (23.7-30.8) Seconds Sodium (132-148) mmol/L Potassium (3.6-5.0) mmol/L Chloride (95-110) mmol/L Carbon Dioxide (21-33) mmol/L Anion Gap (10-20) BUN (7-21) mg/dL Creatinine (0.5-1.4) mg/dL Est GFR ( Amer) Est GFR (Non-Af Amer) POC Glucose (mg/dL) 230 H 208 H 197 H (65-110) mg/dL Random Glucose (70-110) mg/dL Lactic Acid (0.7-2.1) mmol/L Calcium (8.4-10.5) mg/dL Phosphorus (2.5-4.5) mg/dL Magnesium (1.7-2.2) mg/dL Total Bilirubin (0.2-1.3) mg/dL AST (15-39) U/L ALT (7-56) U/L Alkaline Phosphatase (38-133) U/L Total Protein (5.8-8.3) g/dL Albumin (3.0-4.8) g/dL Globulin gm/dL Albumin/Globulin Ratio (1.1-1.8) Procalcitonin (0.19-0.49) NG/ML 10/19/16 10/19/16 10/19/16 Range/Units 21:39 17:26 14:29 WBC (4.5-11.0) 10^3/ul RBC (3.5-6.1) 10^6/uL Hgb (12.0-16.0) gm/dL Hct (36.0-48.0) % MCV (80.0-105.0) fL MCH (25.0-35.0) pg MCHC (31.0-37.0) g/dl RDW (11.5-14.5) % Plt Count (120.0-450.0) 10^3/uL MPV (7.0-11.0) fl Gran % (50.0-68.0) % Lymph % (Auto) (22.0-35.0) % [place] % (Auto) (1.0-6.0) % Eos % (Auto) (1.5-5.0) % Baso % (Auto) (0.0-3.0) % Gran # (1.4-6.5) Lymph # (1.2-3.4) [place] # (0.1-0.6) Eos # (0.0-0.7) Baso # (0.0-2.0) K/mm3 APTT (23.7-30.8) Seconds Sodium (132-148) mmol/L Potassium (3.6-5.0) mmol/L Chloride (95-110) mmol/L Carbon Dioxide (21-33) mmol/L Anion Gap (10-20) BUN (7-21) mg/dL Creatinine (0.5-1.4) mg/dL Est GFR ( Amer) Est GFR (Non-Af Amer) POC Glucose (mg/dL) 206 H 268 H 380 H (65-110) mg/dL Random Glucose (70-110) mg/dL Lactic Acid (0.7-2.1) mmol/L Calcium (8.4-10.5) mg/dL Phosphorus (2.5-4.5) mg/dL Magnesium (1.7-2.2) mg/dL Total Bilirubin (0.2-1.3) mg/dL AST (15-39) U/L ALT (7-56) U/L Alkaline Phosphatase (38-133) U/L Total Protein (5.8-8.3) g/dL Albumin (3.0-4.8) g/dL Globulin gm/dL Albumin/Globulin Ratio (1.1-1.8) Procalcitonin (0.19-0.49) NG/ML 10/19/16 10/19/16 Range/Units 14:12 10:38 WBC (4.5-11.0) 10^3/ul RBC (3.5-6.1) 10^6/uL Hgb (12.0-16.0) gm/dL Hct (36.0-48.0) % MCV (80.0-105.0) fL MCH (25.0-35.0) pg MCHC (31.0-37.0) g/dl RDW (11.5-14.5) % Plt Count (120.0-450.0) 10^3/uL MPV (7.0-11.0) fl Gran % (50.0-68.0) % Lymph % (Auto) (22.0-35.0) % [place] % (Auto) (1.0-6.0) % Eos % (Auto) (1.5-5.0) % Baso % (Auto) (0.0-3.0) % Gran # (1.4-6.5) Lymph # (1.2-3.4) [place] # (0.1-0.6) Eos # (0.0-0.7) Baso # (0.0-2.0) K/mm3 APTT (23.7-30.8) Seconds Sodium (132-148) mmol/L Potassium (3.6-5.0) mmol/L Chloride (95-110) mmol/L Carbon Dioxide (21-33) mmol/L Anion Gap (10-20) BUN (7-21) mg/dL Creatinine (0.5-1.4) mg/dL Est GFR ( Amer) Est GFR (Non-Af Amer) POC Glucose (mg/dL) (65-110) mg/dL Random Glucose (70-110) mg/dL Lactic Acid 1.9 (0.7-2.1) mmol/L Calcium (8.4-10.5) mg/dL Phosphorus (2.5-4.5) mg/dL Magnesium (1.7-2.2) mg/dL Total Bilirubin (0.2-1.3) mg/dL AST (15-39) U/L ALT (7-56) U/L Alkaline Phosphatase (38-133) U/L Total Protein (5.8-8.3) g/dL Albumin (3.0-4.8) g/dL Globulin gm/dL Albumin/Globulin Ratio (1.1-1.8) Procalcitonin < 0.05 L (0.19-0.49) NG/ML Laboratory Results - last 24 hr 10/19/16 10/19/16 10/19/16 10:38 14:12 14:29 WBC RBC Hgb Hct MCV MCH MCHC RDW Plt Count MPV Gran % Lymph % (Auto) [place] % (Auto) Eos % (Auto) Baso % (Auto) Gran # Lymph # [place] # Eos # Baso # APTT Sodium Potassium Chloride Carbon Dioxide Anion Gap BUN Creatinine Est GFR ( Amer) Est GFR (Non-Af Amer) POC Glucose (mg/dL) 380 H Random Glucose Lactic Acid 1.9 Calcium Phosphorus Magnesium Total Bilirubin AST ALT Alkaline Phosphatase Total Protein Albumin Globulin Albumin/Globulin Ratio Procalcitonin < 0.05 L 10/19/16 10/19/16 10/19/16 17:26 21:39 21:56 WBC RBC Hgb Hct MCV MCH MCHC RDW Plt Count MPV Gran % Lymph % (Auto) [place] % (Auto) Eos % (Auto) Baso % (Auto) Gran # Lymph # [place] # Eos # Baso # APTT Sodium Potassium Chloride Carbon Dioxide Anion Gap BUN Creatinine Est GFR ( Amer) Est GFR (Non-Af Amer) POC Glucose (mg/dL) 268 H 206 H 197 H Random Glucose Lactic Acid Calcium Phosphorus Magnesium Total Bilirubin AST ALT Alkaline Phosphatase Total Protein Albumin Globulin Albumin/Globulin Ratio Procalcitonin 10/20/16 10/20/16 10/20/16 00:02 05:11 05:30 WBC 11.7 H D RBC 3.64 Hgb 10.4 L Hct 31.2 L MCV 85.7 MCH 28.6 MCHC 33.3 RDW 14.4 Plt Count 226 MPV 10.6 Gran % 76.5 H Lymph % (Auto) 15.3 L [place] % (Auto) 6.7 H Eos % (Auto) 1.3 L Baso % (Auto) 0.2 Gran # 8.94 H Lymph # 1.8 [place] # 0.8 H Eos # 0.2 Baso # 0.02 APTT Sodium Potassium Chloride Carbon Dioxide Anion Gap BUN Creatinine Est GFR ( Amer) Est GFR (Non-Af Amer) POC Glucose (mg/dL) 208 H 230 H Random Glucose Lactic Acid Calcium Phosphorus Magnesium Total Bilirubin AST ALT Alkaline Phosphatase Total Protein Albumin Globulin Albumin/Globulin Ratio Procalcitonin 10/20/16 10/20/16 05:30 05:30 WBC RBC Hgb Hct MCV MCH MCHC RDW Plt Count MPV Gran % Lymph % (Auto) [place] % (Auto) Eos % (Auto) Baso % (Auto) Gran # Lymph # [place] # Eos # Baso # APTT 24.7 Sodium 135 Potassium 2.8 L* D Chloride 99 Carbon Dioxide 28 Anion Gap 11 BUN 15 Creatinine 0.7 Est GFR ( Amer) > 60 Est GFR (Non-Af Amer) > 60 POC Glucose (mg/dL) Random Glucose 197 H Lactic Acid Calcium 8.4 Phosphorus 3.7 Magnesium 1.6 L Total Bilirubin 1.0 AST 27 ALT 32 Alkaline Phosphatase 73 Total Protein 6.8 Albumin 3.8 Globulin 3.0 Albumin/Globulin Ratio 1.3 Procalcitonin Fingerstick Blood Sugar Results: 339 Review of Systems - Review of Systems All systems: reviewed and no additional remarkable complaints except - Constitutional Constitutional: absent: Fever, Chills - EENT Nose/Mouth/Throat: Nose Pain (from NGT ) - Cardiovascular Cardiovascular: UNREMARKABLE. absent: Chest Pain - Respiratory Respiratory: Cough, Excessive Mucous Production - Gastrointestinal Gastrointestinal: Abdominal Pain (upon palpation), Constipation (Chronic), Nausea (overnight, intermittent). absent: Vomiting - Musculoskeletal Additional comments: s/p L BKA - Neurological Neurological: Memory Loss (Does not remember day of admission). absent: Abnormal Speech - Psychiatric Psychiatric: Anxiety (chronic) Critical Care Progress Note - Extremities/Vascular Does the Patient have a Central Venous Catheter?: No Does the Patient need a Central Venous Catheter?: No - Prophylaxis GI Prophylaxis GI: PPI - Prophylaxis DVT Prophylaxis DVT: Heparin SQ - Nutrition Nutrition: Nutrition Category Date Time Status Liquid Diet [DIET] Diets 10/20/16 Lunch Ordered Assessment/Plan - Assessment and Plan (Free Text) Assessment: 66F w/PMH sig for TIA, HTN, Migraines, Cataracts, DM, Shingles, s/p L BKA, Gastritis, GERD, Colon polyps, Anxiety, Depression admitted to ICU for AMS x 1 day. AMS resolved overnight, pt now verbal, asking appropriate questions. Currently working pt up. Will continue ICU care at this moment. Plan: Neuro Hx TIA, migraines, anxiety, depression AMS resolving AOx 2 Asking for family Asking for food Restarted home med: Xanax 0.5mg PO HS Stable CVS Hx HTN Normotensive Normocardic Re-started home med: Lipitor, ASA Cont Lopressor 5mg IVP Q3H PRN SBP >180 Pulm Sat 95% on 2L via NC Target SaO2 >94% Monitor GI CLD advanced to FLD NGT d/c'd FU C diff toxin Moving bowels Con Zofran PRN Monitor Nephro Hypokalemia K 2.8 Replaced KCl 40mEq x 1, KCl 10mEq IVBP x 2 Hypomagnesemia Mg 1.6 Replaced MgSO4 1gm Will recheck BMP at 4pm Monitor RANDY Roman in place Will d/c Monitor Endo Hx DM ISS Accuchecks BS 197 Target euglycemia as per NICE sugar trial ID Febrile over last 24H, Tmax 102.4 @ 2pm on 10/19 Leukocytosis 11.7 from 17.6 Cont Tylenol PRN F FU C diff FU Blood cxr FU Urine cxr FU Sputum cxr Cont NS @100- will d/c Cont Zosyn 3.375mg Q6H Flagyl d/c'd ID following Heme Hgb 10.4 from 13.8 Hct 31.2 from 40.8 PTT 24.7 from 22.7 Monitor MSK Monitor for skin break down PT/OT eval OOBTC Psych Hx anxiety, depression Cont home med: Xanax 0.5mg PO HS GI/DVT ppx Heparin SCDs Protonix Dispo Stable Cont ICU care at this time DW attending - Date & Time Date: 10/20/16 Time: 07:15 <Malachi Esquivel MD H - Last Filed: 10/20/16 15:57> CCU Objective - Vital Signs / Intake & Output Vital Signs (Last 4 hours): Vital Signs Pulse Resp BP Pulse Ox 10/20/16 12:50 86 24 93 L 10/20/16 12:40 84 18 94 L 10/20/16 12:30 84 18 99 10/20/16 12:20 92 H 19 95 10/20/16 12:18 93 H 11 L 136/50 L 92 L 10/20/16 12:12 21 95 10/20/16 12:00 99 H 55 H Intake and Output (Last 8hrs): Intake & Output 10/20/16 10/20/16 10/20/16 06:59 14:59 22:59 Intake Total 1100 Output Total 450 Balance 650 Weight 154 lb Intake: IV 1100 Right Forearm 1100 Oral 0 Output: Urine 450 Urethral (Roman) 450 Other: Voiding Method Indwelling Catheter # Bowel Movements 0 - Medications Active Medications: Active Medications Generic Name Dose Route Start Last Admin Trade Name Freq PRN Reason Stop Dose Admin Acetaminophen 650 mg 10/19/16 10:15 Tylenol 650 Mg Supp RC Q6H PRN Fever >100.4 F Alprazolam 0.5 mg 10/20/16 22:00 Xanax PO HS [facility] Aspirin 81 mg 10/20/16 13:00 10/20/16 13:06 Ecotrin PO 81 mg DAILY [facility] Administration Atorvastatin Calcium 10 mg 10/20/16 22:00 Lipitor PO HS [facility] Heparin Sodium (Porcine) 5,000 units 10/19/16 22:00 10/20/16 13:06 Heparin SC 5,000 units Q8 [facility] Administration Protocol Piperacillin Sod/Tazobactam Sod 100 mls @ 200 mls/hr 10/19/16 12:00 10/20/16 13:06 Zosyn 3.375 In Ns 100ml IVPB 11/02/16 12:01 200 mls/hr Q6 [facility] Administration Protocol Insulin Human Regular 0 units 10/19/16 10:15 10/20/16 13:02 Humulin R Med SC 7 units Q6 [facility] Administration Protocol Metoprolol Tartrate 5 mg 10/19/16 10:09 10/19/16 10:25 Lopressor IVP 5 mg Q3H PRN Administration Systolic Blood Pressure Ondansetron HCl 4 mg 10/19/16 18:01 10/20/16 13:07 Zofran Inj IVP 4 mg Q6H PRN Administration Nausea/Vomiting Pantoprazole Sodium 40 mg 10/21/16 06:30 Protonix Ec [place] 0630 [facility] - Patient Studies Lab Studies: Lab Studies 10/20/16 10/20/16 10/20/16 Range/Units 05:30 05:30 05:30 WBC 11.7 H D (4.5-11.0) 10^3/ul RBC 3.64 (3.5-6.1) 10^6/uL Hgb 10.4 L (12.0-16.0) gm/dL Hct 31.2 L (36.0-48.0) % MCV 85.7 (80.0-105.0) fL MCH 28.6 (25.0-35.0) pg MCHC 33.3 (31.0-37.0) g/dl RDW 14.4 (11.5-14.5) % Plt Count 226 (120.0-450.0) 10^3/uL MPV 10.6 (7.0-11.0) fl Gran % 76.5 H (50.0-68.0) % Lymph % (Auto) 15.3 L (22.0-35.0) % [place] % (Auto) 6.7 H (1.0-6.0) % Eos % (Auto) 1.3 L (1.5-5.0) % Baso % (Auto) 0.2 (0.0-3.0) % Gran # 8.94 H (1.4-6.5) Lymph # 1.8 (1.2-3.4) [place] # 0.8 H (0.1-0.6) Eos # 0.2 (0.0-0.7) Baso # 0.02 (0.0-2.0) K/mm3 APTT 24.7 (23.7-30.8) Seconds Sodium 135 (132-148) mmol/L Potassium 2.8 L* D (3.6-5.0) mmol/L Chloride 99 (95-110) mmol/L Carbon Dioxide 28 (21-33) mmol/L Anion Gap 11 (10-20) BUN 15 (7-21) mg/dL Creatinine 0.7 (0.5-1.4) mg/dL Est GFR ( Amer) > 60 Est GFR (Non-Af Amer) > 60 POC Glucose (mg/dL) (65-110) mg/dL Random Glucose 197 H (70-110) mg/dL Calcium 8.4 (8.4-10.5) mg/dL Phosphorus 3.7 (2.5-4.5) mg/dL Magnesium 1.6 L (1.7-2.2) mg/dL Total Bilirubin 1.0 (0.2-1.3) mg/dL AST 27 (15-39) U/L ALT 32 (7-56) U/L Alkaline Phosphatase 73 (38-133) U/L Total Protein 6.8 (5.8-8.3) g/dL Albumin 3.8 (3.0-4.8) g/dL Globulin 3.0 gm/dL Albumin/Globulin Ratio 1.3 (1.1-1.8) 10/20/16 10/20/16 10/19/16 Range/Units 05:11 00:02 21:56 WBC (4.5-11.0) 10^3/ul RBC (3.5-6.1) 10^6/uL Hgb (12.0-16.0) gm/dL Hct (36.0-48.0) % MCV (80.0-105.0) fL MCH (25.0-35.0) pg MCHC (31.0-37.0) g/dl RDW (11.5-14.5) % Plt Count (120.0-450.0) 10^3/uL MPV (7.0-11.0) fl Gran % (50.0-68.0) % Lymph % (Auto) (22.0-35.0) % [place] % (Auto) (1.0-6.0) % Eos % (Auto) (1.5-5.0) % Baso % (Auto) (0.0-3.0) % Gran # (1.4-6.5) Lymph # (1.2-3.4) [place] # (0.1-0.6) Eos # (0.0-0.7) Baso # (0.0-2.0) K/mm3 APTT (23.7-30.8) Seconds Sodium (132-148) mmol/L Potassium (3.6-5.0) mmol/L Chloride (95-110) mmol/L Carbon Dioxide (21-33) mmol/L Anion Gap (10-20) BUN (7-21) mg/dL Creatinine (0.5-1.4) mg/dL Est GFR ( Amer) Est GFR (Non-Af Amer) POC Glucose (mg/dL) 230 H 208 H 197 H (65-110) mg/dL Random Glucose (70-110) mg/dL Calcium (8.4-10.5) mg/dL Phosphorus (2.5-4.5) mg/dL Magnesium (1.7-2.2) mg/dL Total Bilirubin (0.2-1.3) mg/dL AST (15-39) U/L ALT (7-56) U/L Alkaline Phosphatase (38-133) U/L Total Protein (5.8-8.3) g/dL Albumin (3.0-4.8) g/dL Globulin gm/dL Albumin/Globulin Ratio (1.1-1.8) 10/19/16 10/19/16 Range/Units 21:39 17:26 WBC (4.5-11.0) 10^3/ul RBC (3.5-6.1) 10^6/uL Hgb (12.0-16.0) gm/dL Hct (36.0-48.0) % MCV (80.0-105.0) fL MCH (25.0-35.0) pg MCHC (31.0-37.0) g/dl RDW (11.5-14.5) % Plt Count (120.0-450.0) 10^3/uL MPV (7.0-11.0) fl Gran % (50.0-68.0) % Lymph % (Auto) (22.0-35.0) % [place] % (Auto) (1.0-6.0) % Eos % (Auto) (1.5-5.0) % Baso % (Auto) (0.0-3.0) % Gran # (1.4-6.5) Lymph # (1.2-3.4) [place] # (0.1-0.6) Eos # (0.0-0.7) Baso # (0.0-2.0) K/mm3 APTT (23.7-30.8) Seconds Sodium (132-148) mmol/L Potassium (3.6-5.0) mmol/L Chloride (95-110) mmol/L Carbon Dioxide (21-33) mmol/L Anion Gap (10-20) BUN (7-21) mg/dL Creatinine (0.5-1.4) mg/dL Est GFR ( Amer) Est GFR (Non-Af Amer) POC Glucose (mg/dL) 206 H 268 H (65-110) mg/dL Random Glucose (70-110) mg/dL Calcium (8.4-10.5) mg/dL Phosphorus (2.5-4.5) mg/dL Magnesium (1.7-2.2) mg/dL Total Bilirubin (0.2-1.3) mg/dL AST (15-39) U/L ALT (7-56) U/L Alkaline Phosphatase (38-133) U/L Total Protein (5.8-8.3) g/dL Albumin (3.0-4.8) g/dL Globulin gm/dL Albumin/Globulin Ratio (1.1-1.8) Laboratory Results - last 24 hr 10/19/16 10/19/16 10/19/16 17:26 21:39 21:56 WBC RBC Hgb Hct MCV MCH MCHC RDW Plt Count MPV Gran % Lymph % (Auto) [place] % (Auto) Eos % (Auto) Baso % (Auto) Gran # Lymph # [place] # Eos # Baso # APTT Sodium Potassium Chloride Carbon Dioxide Anion Gap BUN Creatinine Est GFR ( Amer) Est GFR (Non-Af Amer) POC Glucose (mg/dL) 268 H 206 H 197 H Random Glucose Calcium Phosphorus Magnesium Total Bilirubin AST ALT Alkaline Phosphatase Total Protein Albumin Globulin Albumin/Globulin Ratio 10/20/16 10/20/16 10/20/16 00:02 05:11 05:30 WBC 11.7 H D RBC 3.64 Hgb 10.4 L Hct 31.2 L MCV 85.7 MCH 28.6 MCHC 33.3 RDW 14.4 Plt Count 226 MPV 10.6 Gran % 76.5 H Lymph % (Auto) 15.3 L [place] % (Auto) 6.7 H Eos % (Auto) 1.3 L Baso % (Auto) 0.2 Gran # 8.94 H Lymph # 1.8 [place] # 0.8 H Eos # 0.2 Baso # 0.02 APTT Sodium Potassium Chloride Carbon Dioxide Anion Gap BUN Creatinine Est GFR ( Amer) Est GFR (Non-Af Amer) POC Glucose (mg/dL) 208 H 230 H Random Glucose Calcium Phosphorus Magnesium Total Bilirubin AST ALT Alkaline Phosphatase Total Protein Albumin Globulin Albumin/Globulin Ratio 10/20/16 10/20/16 05:30 05:30 WBC RBC Hgb Hct MCV MCH MCHC RDW Plt Count MPV Gran % Lymph % (Auto) [place] % (Auto) Eos % (Auto) Baso % (Auto) Gran # Lymph # [place] # Eos # Baso # APTT 24.7 Sodium 135 Potassium 2.8 L* D Chloride 99 Carbon Dioxide 28 Anion Gap 11 BUN 15 Creatinine 0.7 Est GFR ( Amer) > 60 Est GFR (Non-Af Amer) > 60 POC Glucose (mg/dL) Random Glucose 197 H Calcium 8.4 Phosphorus 3.7 Magnesium 1.6 L Total Bilirubin 1.0 AST 27 ALT 32 Alkaline Phosphatase 73 Total Protein 6.8 Albumin 3.8 Globulin 3.0 Albumin/Globulin Ratio 1.3 Critical Care Progress Note - Nutrition Nutrition: Nutrition Category Date Time Status Consistent Carbohydrate [DIET] Diets 10/20/16 Dinner Ordered Liquid Diet [DIET] Diets 10/20/16 Lunch Ordered Attending/Attestation - Attestation I have personally seen and examined this patient.: Yes I have fully participated in the care of the patient.: Yes I have reviewed all pertinent clinical information: Yes Notes (Text): 10/20/16 15:55 66 y/o F w/ sepsis of unknown origin . Received ABX x [address] abd uneventful. AMS improved this morning and patient is AAo x 3. No clear source of infection can be identified. Will d/w ID , likely complete a course of 7 days of ABX. Probable viral syndrome as well. dvt p heparin sq tid. cc time 45 min
[2016-10-20 16:32] LABS: BLOOD UREA NITROGEN 12 mg/dL (7-21); CALCIUM 8.7 mg/dL (8.4-10.5); CARBON DIOXIDE 27 mmol/L (21-33); CHLORIDE 101 mmol/L (98-107); GFR AFRICAN-AMERICAN > 60; GLUCOSE,RANDOM 271 mg/dL (70-110); POTASSIUM 3.5 mmol/L (3.6-5.0); SODIUM 138 mmol/L (132-148)
[2016-10-20] MEDS ORDERED: Potassium Chloride 20 mEq ER Tab PO ONE (16:52)
[2016-10-20 18:08] VITALS: RESP 20
--- NOTE | 2016-10-20 22:31 | HP ---
HISTORY OF PRESENT ILLNESS: The patient is a 66-year-old female who presented to the [facility] with fever and altered mental status. She was found by the daughter with weakness and lethargy for 1-day history. She has history of migraine headaches, none recent. She also has history of afia betes mellitus type 2, in which blood sugars were fairly controlled in the recent past. She also has a history of left below-knee amputation 2 weeks ago. PAST MEDICAL HISTORY: Hypertension, diabetes mellitus type 2, migraine headaches, history of shingle s 3 years ago, left below-knee amputation 2 weeks ago, GE reflux. PAST SURGICAL HISTORY: Left below-knee amputation. FAMILY HISTORY: Noncontributory. No positive history in mother or father. ALLERGIES: No known drug allergies. SOCIAL HISTORY: Never smoked. No history of alcohol abuse. PERSONAL HISTORY: Lives at home. HOME MEDICATIONS: Aspirin 81 mg daily, glipizide 10 mg p.o. b.i.d., insulin 10 units subQ b.i.d., me tformin 1000 units p.o. b.i.d., Xanax 0.25 mg p.o. at bedtime, Lipitor 10 mg p.o. at bedtime. REVIEW OF SYSTEMS: Altered mental status, review of systems could not be obtained. PHYSICAL EXAMINATION: VITAL SIGNS: Temperature 101.9, heart rate is 119 per minute, respiratory rate 20 per minute. Blood pressure 248/74, repeat 127/75, pulse ox is 94% on room air. HEENT: Normal. Oral mucosa are dry. RESPIRATORY: Clear to auscultation. Bilateral air entry present. No rhonchi, no crepitations. CARDIOVASCULAR: S1, S2 normal. No murmur, no gallop. ABDOMEN: Soft, nontender. No rebound tenderness. No rigidity, no guarding. EXTREMITIES: Lower extremities with no edema. SKIN: Warm, dry, normal color. LYMPHATICS: No lymphadenopathy. NEUROLOGIC: Confused and lethargic. Moving all of the limbs. LABORATORY DATA: White count 17,000, hemoglobin 13.8, hematocrit 40.8, platelet 327. Sodium 134, po tassium 4.2, BUN 16, creatinine 0.6, glucose 388. Lactate 4.7. CT abdomen: No acute findings. Yary st x-ray: No infiltrate. ASSESSMENT: 1. Sepsis. 2. Altered mental status. 3. Diabetes mellitus. 4. Hypertension. 5. Peripheral vascular disease. 6. Leukocytosis. PLAN: Consult with sales advisory manager requested. Consult appreciated. She will be admitted to intensive c are unit. She received vancomycin in the ER, 1 gram. Currently getting IV fluid at 100 mL an hour. Will have ID consultation for sepsis. Blood culture and urine culture to be sent. She has leukocyt osis. CAT scan of the abdomen is negative for any acute finding. She does not have obvious infiltra gloria in the chest. Will continue home medications, Lipitor 10 mg daily, aspirin 81 mg daily. DVT pro phylaxis by heparin 5000 units subQ q. 8 hours. Will cover with insulin sliding scale. Continue bet a karla 5 mg IV q. 3 hours p.r.n. for elevated blood pressure, Protonix 40 mg daily, Zosyn. ID Dr. Enrico dominguez requested. CAT scan head is unremarkable for acute pathology. Viviana Schmitz MD cc: [id number] TT: 10/20/2016 22:30:44 sony
--- NOTE | 2016-10-20 22:43 | PN ---
DATE: 10/20/2016 SUBJECTIVE: The patient was admitted with fever and altered mental status. She is communicative now . She is talking. She was treated for sepsis. Received IV antibiotic Zosyn. Denies any pain. No nausea, no vomiting. Asking for NG tube to be removed. Family at bedside. REVIEW OF SYSTEMS: As per HPI. Rest of 12-point review of systems reviewed and negative. PHYSICAL EXAMINATION: GENERAL: Comfortable in bed, in no acute distress. VITAL SIGNS: Stable. Blood pressure 169/70, heart rate is 92 per minute, oxygen saturation 100% on room air, respiratory rate 20 per minute. HEENT: Normal. Oral mucosa dry. NECK: No lymphadenopathy. CHEST: Air entry present, equal bilateral. No added sound. CARDIOVASCULAR: S1, S2 normal. No murmur, no gallop. ABDOMEN: Soft, nontender, no rigidity, no guarding, no rebound tenderness. EXTREMITIES: No edema. CENTRAL NERVOUS SYSTEM: Communicative. Moving all the limbs. SKIN: No petechia, no rash. LYMPHADENOPATHY: None. LABORATORY DATA: White count 11.7, hemoglobin 10.4, hematocrit 31.2, platelet count 226. Sodium 138 , potassium 3.1, calcium 8.7. ASSESSMENT: 1. Sepsis. 2. Altered mental status. 3. Diabetes mellitus type 2. 4. Leukocytosis. 5. Anemia. 6. History of shingles. 7. History of migraine headaches. 8. Peripheral vascular disease, status post left below-knee amputation. PLAN: Will continue Tylenol 650 q. 6 hours p.r.n. Will start Xanax mg p.o. at bedtime, aspirin 81 mg daily. Continue Lipitor 10 mg daily, heparin for DVT prophylaxis 5000 units subQ q. 8 hours. She is on sliding scale insulin. We will continue that. Continue beta karla. Continue Zofran 4 mg IV q. 6 hours p.r.n., Protonix 40 mg daily, Zosyn q. [address] Weston's not e reviewed. Blood culture and urine culture: No growth so far. CAT scan of the abdomen negative. Blood counts are improving. White count improved. She had leukocytosis on admission, hemoglobin and hematocrit stable, mild anemia. Will continue to monitor blood count. Viviana Schmitz MD cc: [id number] TT: 10/20/2016 22:43:16 Confirmation # [id number] Dictation # [id number] ln
[2016-10-21] MEDS: Insulin Reg-MEDIUM-Coverage SC SCH ×3 (00:10→11:47)
[2016-10-21] MEDS: Piperacillin/Tazobact 3.375 gm 100 ML IVPB SCH ×2 (06:09→12:49)
[2016-10-21] MEDS ORDERED: Pantoprazole 40 mg EC Tab PO SCH (06:30)
[2016-10-21 07:46] LABS: ADD MANUAL DIFF? NO
[2016-10-21 08:00] LABS: BASO # 0.02 K/mm3 (0.0-2.0); BASO % 0.2 % (0.0-3.0); EOS # 0.3 (0.0-0.7); EOS % 2.7 % (1.5-5.0); GRAN # 8.12 (1.4-6.5); GRAN % 76.8 % (50.0-68.0); HEMATOCRIT 35.3 % (36.0-48.0); LYMPH # 1.6 (1.2-3.4); LYMPH % 14.9 % (22.0-35.0); MEAN CELL VOLUME 86.7 fL (80.0-105.0); MEAN CORPUSCULAR HEMOGLOBIN 28.3 pg (25.0-35.0); MEAN CORPUSCULAR HGB CONC 32.6 g/dl (31.0-37.0); MEAN PLATELET VOLUME 10.7 fl (7.0-11.0); MONO # 0.6 (0.1-0.6); MONO % 5.4 % (1.0-6.0); PLATELET COUNT 234 10^3/uL (120.0-450.0); RED CELL DISTRIBUTION WIDTH 14.5 % (11.5-14.5); WHITE BLOOD COUNT 10.6 10^3/ul (4.5-11.0)
[2016-10-21 08:11] LABS: ALB/GLOB RATIO 1.2 (1.1-1.8); ALKALINE PHOSPHATASE 81 U/L (38-133); ALT/SGPT 32 U/L (7-56); AST/SGOT 32 U/L (15-39); BLOOD UREA NITROGEN 10 mg/dL (7-21); CALCIUM 9.2 mg/dL (8.4-10.5); CARBON DIOXIDE 28 mmol/L (21-33); CHLORIDE 101 mmol/L (98-107); GFR AFRICAN-AMERICAN > 60; GLUCOSE,RANDOM 270 mg/dL (70-110); MAGNESIUM 1.7 mg/dL (1.7-2.2); PHOSPHOROUS 2.9 mg/dL (2.5-4.5); POTASSIUM 3.8 mmol/L (3.6-5.0); SODIUM 138 mmol/L (132-148)
[2016-10-21 08:23] VITALS: BP 124/57; PULSE 108; TEMP 98.7; O2SAT 94
--- NOTE | 2016-10-21 13:44 | PN ---
DATE: 10/21/2016 The patient is in bed in no acute distress, nontoxic. PHYSICAL EXAMINATION: VITAL SIGNS: Temperature is 98, blood pressure is 120/60, respiratory rate of 18. HEENT: Unremarkable. NECK: Supple. LUNGS: Have decreased breath sounds. HEART: Normal S1, S2. ABDOMEN: Soft. LABORATORY DATA: Reveals the white count is down to 10,000, hemoglobin 11, platelets of 234. BUN of 10, creatinine of 0.7. Blood cultures are negative. Urine cultures are no growth. Nasal MRSA is n ot detected. ASSESSMENT AND PLAN: A 66-year-old female who was admitted with past medical history of diabetes, hi gh cholesterol, hypertension, peripheral vascular disease, coronary artery disease, chronic back pain , fibrocystic breast disease, zoster, history of anxiety, history of MRSA and Enterobacter and histor y of left popliteal bypass graft done by Dr. Maral Segura with left popliteal dorsalis pedis bypass and history of left [id number]-[id number] amputation, admitted now with systemic inflammatory response syndr ome, fever, tachycardia, dyspnea, leukocytosis, all resolved with a negative procalcitonin, negative CT scan of the abdomen and pelvis, negative chest x-ray, negative cultures. We will discontinue the antibiotics and Zosyn and complete with p.o. Augmentin 875 p.o. b.i.d. x 5 days. Case discussed with Dr. Schmitz. Magdiel Weston MD cc: [id number] TT: 10/21/2016 13:44:32 Confirmation # [id number] Dictation # [id number] jose
--- NOTE | 2016-10-29 02:13 | DS ---
DISCHARGE DIAGNOSES: 1. Altered mental status. 2. Anemia. 3. Leukocytosis. 4. Diabetes mellitus type 2. 5. Sepsis. HOSPITAL COURSE: The patient was admitted to the ICU with altered mental status. She was thought to have sepsis and treated with IV antibiotics. Mental status improved markedly within 24 hours during hospitalization. She was transferred to a regular floor. PHYSICAL EXAMINATION: GENERAL: On discharge, comfortable in bed, in no acute distress. VITAL SIGNS: Temperature 98.6, heart rate 100 per minute, respiratory rate 16 per minute, blood pressure 120/70. HEENT: Normal. CHEST: Air entry present, equal bilateral. No added sound. CARDIOVASCULAR: S1, S2 normal. No murmur, no gallop. ABDOMEN: Soft, nontender. No hepatosplenomegaly. EXTREMITIES: No edema. CONDITION ON DISCHARGE: Stable. DISPOSITION: Discharged home. DISCHARGE MEDICATIONS: Xanax 0.25 mg p.o. at bedtime, Lipitor 10 mg daily, magnesium p.r.n., Protonix 40 mg daily, Augmentin 875 mg p.o. b.i.d. DISCHARGE INSTRUCTIONS: Follow up with Dr. Lyons in 1 week. Time spent in preparing discharge and coordinating are 45 minutes. Viviana Schmitz MD cc: [id number] TT: 10/29/2016 02:12:42 venkat WEISS
== END 2016-10-21 15:01 | disposition home health service (06) | DRG 872 ==
LOC: ED 04:51 → ERH 08:37 → CCU 09:06 → 5RSO 10-20 19:38
PROVIDERS: ADMIT Internal Medicine Nephrology; ATTEND Internal Medicine Nephrology
DX: A41.9 Sepsis, unspecified organism (principal); E11.51 Type 2 diabetes mellitus with diabetic peripheral angiopathy without gangrene; G43.909 Migraine, unspecified, not intractable, without status migrainosus; K21.9 Gastro-esophageal reflux disease without esophagitis; I25.10 Atherosclerotic heart disease of native coronary artery without angina pectoris; F41.9 Anxiety disorder, unspecified; G89.29 Other chronic pain; E78.00 Pure hypercholesterolemia, unspecified; M54.9 Dorsalgia, unspecified; D64.9 Anemia, unspecified; I10 Essential (primary) hypertension; N60.19 Diffuse cystic mastopathy of unspecified breast; Z89.512 Acquired absence of left leg below knee; Z86.19 Personal history of other infectious and parasitic diseases; Z79.84 Long term (current) use of oral hypoglycemic drugs; Z79.82 Long term (current) use of aspirin; Z79.4 Long term (current) use of insulin

== ENCOUNTER 2017-06-03 16:00 | Inpatient (IN) | payer MEDICARE, BC ==
[2017-06-03 16:00] VITALS: BMI 28.9
--- NOTE | 2017-06-03 18:06 | CT ---
PROCEDURE: CT HEAD WITHOUT CONTRAST. HISTORY: head injury COMPARISON: 10/19/2016. TECHNIQUE: Axial computed tomography images were obtained through the head/brain without intravenous contrast. Radiation dose: Total exam DLP = 989.93 mGy-cm. This CT exam was performed using one or more of the following dose reduction techniques: Automated exposure control, adjustment of the mA and/or kV according to patient size, and/or use of iterative reconstruction technique. FINDINGS: HEMORRHAGE: No intracranial hemorrhage. BRAIN: There are moderate chronic microangiopathic changes. There is no mass, mass effect or abnormal extra-axial fluid collection. There is no territorial infarction.There are coarse atherosclerotic calcifications in the cavernous carotid arteries. VENTRICLES: There is moderate age-related global parenchymal volume loss and proportionate enlargement of the ventricles and cortical sulci. CALVARIUM: The skull base and calvarium are normal. PARANASAL SINUSES: Predominantly clear. MASTOID AIR CELLS: Bilateral mastoid air cells are underdeveloped. OTHER FINDINGS: None. IMPRESSION: No acute intracranial abnormality. Moderate chronic microangiopathic changes and moderate age-related global parenchymal volume loss.
--- NOTE | 2017-06-03 18:29 | RAD ---
PROCEDURE: Radiographs of the pelvis and bilateral hips HISTORY: left hip pain COMPARISON: 08/29/2016 FINDINGS: BONES: There is diffuse bone demineralization. There is no acute displaced fracture or bone destruction. The pelvic ring is intact. JOINTS: There is mild degenerative osteoarthrosis in the hip joints and sacroiliac joints. SOFT TISSUES: Normal. OTHER FINDINGS: None. IMPRESSION: No acute displaced fracture or dislocation. Please note occult fractures cannot be excluded on plain radiographs. If there is a persistent clinical concern, an MRI of the hip may be performed for further evaluation.
--- NOTE | 2017-06-03 18:34 | RAD ---
PROCEDURE: Radiographs of the Left Shoulder HISTORY: shoulder pain COMPARISON: None available. FINDINGS: Examination limited by habitus and osseous demineralization. External monitoring leads obscure evaluation of the underlying structures. BONES: Oblique mildly displaced fracture deformity of the humeral head. No additional acute displaced fracture appreciated. Degenerative changes. JOINTS: No acute dislocation. Acromioclavicular arthropathy. Glenohumeral joint space narrowing. SOFT TISSUES: Soft tissue swelling. Median sternotomy wires. IMPRESSION: Oblique mildly displaced fracture deformity of the humeral head. Degenerative changes. Osseous demineralization.
--- NOTE | 2017-06-03 19:01 | ED PDOC ---
Arrival/HPI - General Chief Complaint: Trauma Time Seen by Provider: 06/03/17 16:29 Historian: Patient - History of Present Illness Narrative History of Present Illness (Text): 06/03/17 18:58 66yo female with PMHx of hypertension, Diabetes left below the knee amputation biba for left shoulder and hip pain s/p trauma. the daughter and the by the bedside states patient slipped while trying to move from her wheel chair into a sit. States the wheel chair was not locked so she fell and landed on the floor. They note that patient has not been able to bear weight on that left leg since then. Denies Local, focal weakness, dizziness, nausea. Pt also report worsening rash to her groin area. States she was applying ??home cream to the area, but it became worse. Denies fever, chills, any other complaint. Past Medical History - Provider Review Nursing Documentation Reviewed: Yes - Infectious Disease Hx of Infectious Diseases: None - Tetanus Immunization Tetanus Immunization: Unknown - Cardiac Hx Cardiac Disorders: Yes (CABG,VARICOSE VEINS) Hx Hypertension: Yes Hx Peripheral Vascular Disease: Yes (L FOOT) - Pulmonary Hx Respiratory Disorders: No - Neurological Hx Neurological Disorder: Yes HX Cerebrovascular Accident: Yes Hx Dizziness: Yes Hx Migraine: Yes Hx Transient Ischemic Attacks (TIA): Yes - HEENT Hx HEENT Disorder: Yes Hx Cataracts: Yes (right eye) - Renal Hx Renal Disorder: Yes - Endocrine/Metabolic Hx Endocrine Disorders: Yes Hx Diabetes Mellitus Type 2: Yes - Hematological/Oncological Hx Blood Disorders: Yes Hx Shingles: Yes (3 years ago) - Integumentary Hx Dermatological Disorder: No Other/Comment: LEFT BKA WITH PROSTHESIS - Musculoskeletal/Rheumatological Hx Musculoskeletal Disorders: Yes Hx Osteomyelitis: Yes Hx Unsteady Gait: Yes (left BKA 2 YRS ago,immobile) Other/Comment: Left leg ampute - Gastrointestinal Hx Gastrointestinal Disorders: Yes Hx Gastroesophageal Reflux: Yes Other/Comment: gastritis,colon polyps - Genitourinary/Gynecological Hx Genitourinary Disorders: No - Psychiatric Hx Psychophysiologic Disorder: Yes Hx Anxiety: Yes Hx Depression: Yes Hx Substance Use: No - Surgical History Hx Orthopedic Surgery: Yes (L BKA) Other/Comment: Left leg ampute - Anesthesia Hx Anesthesia Reactions: No Hx Malignant Hyperthermia: No - Suicidal Assessment Feels Threatened In Home Enviroment: No Family/Social History - Physician Review Nursing Documentation Reviewed: Yes Family/Social History: Unknown Family HX Smoking Status: Never Smoked Hx Alcohol Use: No Hx Substance Use: No Hx Substance Use Treatment: No Allergies/Home Meds Allergies/Adverse Reactions: Allergies No Known Allergies Allergy (Verified 06/03/17 16:21) Home Medications: Home Meds Medication Instructions Recorded Confirmed Unobtainable 06/03/17 06/03/17 Review of Systems - Physician Review All systems were reviewed & negative as marked: Yes - Review of Systems Constitutional: Normal Eyes: Normal ENT: Normal Respiratory: Normal Cardiovascular: Normal Gastrointestinal: Normal Genitourinary Female: Normal Musculoskeletal: Arthralgias (Left shoulder/hip pain) Skin: Normal Neurological: Normal Endocrine: Normal Hemo/Lymphatic: Normal Psychiatric: Normal Physical Exam Vital Signs Reviewed: Yes Vital Signs Temp Pulse Resp BP Pulse Ox 06/03/17 18:15 79 18 148/59 L 96 06/03/17 16:11 98.2 F 88 20 150/55 L 96 Temperature: Afebrile Blood Pressure: Normal Pulse: Regular Respiratory Rate: Normal Appearance: Positive for: Well-Appearing, Non-Toxic, Comfortable Pain Distress: None Mental Status: Positive for: Alert and Oriented X 3 Finger Stick Blood Glucose: 174 - Systems Exam Head: Present: Atraumatic, Normocephalic Pupils: Present: PERRL Extroacular Muscles: Present: EOMI Conjunctiva: Present: Normal Mouth: Present: Moist Mucous Membranes Neck: Present: Normal Range of Motion Respiratory/Chest: Present: Clear to Auscultation, Good Air Exchange. No: Respiratory Distress, Accessory Muscle Use Cardiovascular: Present: Regular Rate and Rhythm, Normal S1, S2. No: Murmurs Abdomen: Present: Normal Bowel Sounds. No: Tenderness, Distention, Peritoneal Signs Back: Present: Normal Inspection Upper Extremity: Present: Normal Inspection. No: Cyanosis, Edema Lower Extremity: Present: Normal Inspection. No: Edema Neurological: Present: GCS=15, CN II-XII Intact, Speech Normal Skin: Present: Warm, Dry, Normal Color, Erythematous (Erythematous patch noted to b/l groin area with overlaying central whitish scaling). No: Rashes Psychiatric: Present: Alert, Oriented x 3, Normal Insight, Normal Concentration Medical Decision Making ED Course and Treatment: 06/03/17 20:25 PT present to ED for stated history. She was neurologically intact and AAO x3 in ED. Left shoulder xray - Mildly displaced humeral head fracture B/L hip/pelvis fracture - No acute fracture. PT however emphasized that she can't move her left hip secondary to pain. Hip CT ordered Head CT - No acute finding PT have leukocytosis. She have history of DM. she will be admitted for IV abx. Case was JESSICA Lyons and he accepted pt. Case was also JESSICA Thomason and he will see pt tomorrow. - Lab Interpretations Lab Results: 06/03/17 19:48 06/03/17 19:48 Lab Results 06/03/17 19:48: Sodium 135, Potassium 4.0, Chloride 99, Carbon Dioxide 26, Anion Gap 15, BUN 14, Creatinine 0.5 L, Est GFR ( Amer) > 60, Est GFR ( Non-Af Amer) > 60, Random Glucose 166 H, Calcium 9.7, Total Bilirubin 0.8, AST 33, ALT 31, Alkaline Phosphatase 59, Total Protein 7.3, Albumin 4.1, Globulin 3.2, Albumin/Globulin Ratio 1.3 06/03/17 19:48: PT 12.4, INR 1.09 H, APTT 26.3 06/03/17 19:48: WBC 15.9 H D, RBC 4.21, Hgb 11.9 L, Hct 36.8, MCV 87.4, MCH 28.3 , MCHC 32.3, RDW 14.4, Plt Count 217, MPV 10.9, Gran % 82.3 H, Lymph % (Auto) 12.7 L, [place] % (Auto) 4.3, Eos % (Auto) 0.6 L, Baso % (Auto) 0.1, Gran # 13.06 H , Lymph # 2.0, [place] # 0.7 H, Eos # 0.1, Baso # 0.02 - RAD Interpretation Radiology Orders: 06/03/17 16:38 Hip Bilateral [HIP MIN 3V W/ PELVIS YAYA] [RAD] Stat 06/03/17 16:39 SHOULDER LEFT [RAD] Stat 06/03/17 17:26 HEAD W/O CONTRAST [CT] Stat 06/03/17 18:56 HIP WITHOUT CONTRAST LEFT [CT] Stat - Medication Orders Current Medication Orders: Ceftriaxone Sodium (Rocephin 1 Gram Ivpb) 1 gm in 100 mls @ 200 mls/hr IVPB STAT STA PRN Reason: Protocol Stop: 06/03/17 20:45 Discontinued Medications Morphine Sulfate (Morphine) 2 mg IVP STAT STA Stop: 06/03/17 19:17 Disposition/Present on Arrival - Present on Arrival Any Indicators Present on Arrival: No History of DVT/PE: No History of Uncontrolled Diabetes: No Urinary Catheter: No History of Decub. Ulcer: No History Surgical Site Infection Following: None - Disposition Have Diagnosis and Disposition been Completed?: Yes Diagnosis: Cellulitis, Shoulder fracture, Sprain of hip Disposition: HOSPITALIZED Disposition Time: 20:00 Patient Plan: Admission Patient Problems: Current Active Problems Problem Status Onset Cellulitis Acute Shoulder fracture Acute Sprain of hip Acute Condition: FAIR
[2017-06-03] MEDS ORDERED: Morphine 2 mg/ml ISec IVP STA (19:16)
[2017-06-03 19:55] LABS: BASO # 0.02 K/mm3 (0.0-2.0); BASO % 0.1 % (0.0-3.0); EOS # 0.1 (0.0-0.7); EOS % 0.6 % (1.5-5.0); GRAN # 13.06 (1.4-6.5); GRAN % 82.3 % (50.0-68.0); HEMOGLOBIN 11.9 g/dL (12.0-16.0); LYMPH % 12.7 % (22.0-35.0); MEAN CELL VOLUME 87.4 fl (80.0-105.0); MEAN CORPUSCULAR HEMOGLOBIN 28.3 pg (25.0-35.0); MEAN CORPUSCULAR HGB CONC 32.3 g/dl (31.0-37.0); MEAN PLATELET VOLUME 10.9 fl (7.0-11.0); MONO # 0.7 (0.1-0.6); MONO % 4.3 % (1.0-6.0); RBC 4.21 10^6/uL (3.5-6.1); RED CELL DISTRIBUTION WIDTH 14.4 % (11.5-14.5); WHITE BLOOD COUNT 15.9 10^3/ul (4.5-11.0)
[2017-06-03 20:09] LABS: ALB/GLOB RATIO 1.3 (1.1-1.8); ALBUMIN 4.1 g/dL (3.0-4.8); ALT/SGPT 31 U/L (7-56); AST/SGOT 33 U/L (14-36); BLOOD UREA NITROGEN 14 mg/dL (7-21); CALCIUM 9.7 mg/dL (8.4-10.5); GFR AFRICAN-AMERICAN > 60; GFR NON-AFRICAN AMERICAN > 60
[2017-06-03] MEDS ORDERED: cefTRIAXone 1 gm 1 GM/100 ML BAG IVPB STA (20:16)
[2017-06-03 20:26] LABS: INR 1.09 (0.93-1.08); PARTIAL THROMBOPLASTIN TIME 26.3 Seconds (25.1-36.5); PROTHROMBIN TIME 12.4 SECONDS (9.4-12.5)
--- NOTE | 2017-06-04 02:55 | CT ---
EXAM: CT Left Lower Extremity Without Intravenous Contrast, Hip EXAM DATE/TIME: 06/03/2017 6:56 PM CLINICAL HISTORY: The patient age is 66 years old and is female; Injury or trauma; Fall; Initial encounter; Sprain or strain; Hip; Left; Additional info: Hip pain S/P trauma Facility exam id and description: Ct hipleft hip without contrast left TECHNIQUE: Axial computed tomography images of the left hip without intravenous contrast. All CT scans at this facility use one or more dose reduction techniques, viz.: automated exposure control; ma/kV adjustment per patient size (including targeted exams where dose is matched to indication; i.e. head); or iterative reconstruction technique. Coronal and sagittal reformatted images were created and reviewed. COMPARISON: DX - HIP YAYA W/WO PELVIS 3-4 VIEWS 2017-06-03 17:10 FINDINGS: Bones/joints: There is a nondisplaced fracture of the greater trochanter. A tiny fracture fragment is identified lateral to the femoral neck. There is an old fracture of the inferior right pubic ramus. No dislocation of the left hip. There is narrowing of the left hip joint space superiorly, consistent with arthropathy. There is spurring of the left greater trochanter. Soft tissues: There is calcification in the region of the left gluteus medius tendon, suggestive of prior injury. There is mild soft tissue swelling lateral to the left hip. Muscle atrophy is visualized involving the left thigh and gluteal musculature. CT is suboptimal for evaluation of ligaments and tendons. Vasculature: Extensive atherosclerotic calcification is identified. Lymph nodes: Nonspecific left inguinal lymph nodes are visualized. Bowel: There is significant fecal material within the colon and rectum. Bladder: There is wall thickening of the anterior wall the bladder. This may be inflammatory, although additional pathology cannot be excluded. An incompletely distended bladder can contribute to this appearance. IMPRESSION: 1. There is a nondisplaced fracture of the greater trochanter. A tiny fracture fragment is identified lateral to the femoral neck. 2. There is wall thickening of the anterior wall the bladder. This may be inflammatory, although additional pathology cannot be excluded. Further clinical evaluation is recommended. 3. There is calcification in the region of the left gluteus medius tendon, suggestive of prior injury. 4. There is an old fracture of the inferior right pubic ramus. 5. There is mild soft tissue swelling lateral to the left hip. 6. Degenerative change/arthropathy is identified involving the left hip.
[2017-06-04 10:34] LABS: HEMOGLOBIN 11.8 g/dL (12.0-16.0); MEAN CELL VOLUME 86.3 fl (80.0-105.0); MEAN CORPUSCULAR HEMOGLOBIN 28.4 pg (25.0-35.0); MEAN PLATELET VOLUME 10.6 fl (7.0-11.0); RBC 4.15 10^6/uL (3.5-6.1); RED CELL DISTRIBUTION WIDTH 14.4 % (11.5-14.5); WHITE BLOOD COUNT 13.8 10^3/ul (4.5-11.0)
[2017-06-04] MEDS: Insulin Reg-LOW-Coverage SC SCH ×3 (12:07→22:06)
[2017-06-04 15:28] LABS: PH,URINE 6.5 (4.7-8.0); URINE BILIRUBIN NEGATIVE (NEGATIVE); URINE BLOOD NEGATIVE (NEGATIVE); URINE GLUCOSE (UA) >=1000 mg/dL (NEGATIVE); URINE LEUKOCYTE ESTERASE NEGATIVE Leu/uL (NEGATIVE); URINE NITRATE NEGATIVE (NEGATIVE); URINE PROTEIN TRACE mg/dL (<30 mg/dL); URINE UROBILINOGEN 0.2 E.U./dL (<1 E.U./dL)
[2017-06-04 15:29] LABS: URINE APPEARANCE CLEAR (CLEAR); URINE COLOR YELLOW (YELLOW)
--- NOTE | 2017-06-04 15:32 | CON ---
DATE: 06/04/2017 ORTHOPEDIC CONSULTATION REPORT HISTORY OF PRESENT ILLNESS: The patient came in to [facility] yesterday on 06/03/2017 for injury sustained, when she slipped and fell at home and she has greater trochanter fracture of the left hip minimally displaced and a greater tuberosity fracture of the proximal humerus, which is minimally displaced; both fractures do not need surgery. The patient has ipsilateral below the knee amputation and that she does use a prosthesis for ambulation with a walker, but also depends on the wheelchair quite a bit, but she does not need surgery and will get her up out of bed and when the pain subsides she will be able to ambulate with a walker, but because of her disability she probably is going to use the wheelchair more than before, but when the greater trochanter fracture heals and greater tuberosity fracture heals enough to have rest pain, then she will be able to ambulate with artificial leg and a walker. There is a chance she might need to go subacute rehab until that time comes, but overall picture is good for recovery without surgery after the fracture heals in about 4 to 6 weeks. Farrukh Thomason DO
[2017-06-04 15:43] LABS: URINE BACTERIA SMALL (NEG); URINE RBC 0 - 2 /hpf (0-2); URINE WBC 0 - 2 /hpf (0-6)
--- NOTE | 2017-06-04 18:27 | CP.PCM.CON ---
History of Present Illness - History of Present Illness History of Present Illness: 66 year old female seen at bedside for elongated, dystrophic nails. Patient usually comes into wound care center to have her toenails trimmed and states that her next appointment was scheduled for tomorrow. Denies any other pedal complaints at this time. Is AAO x 3 and NAD, resting comfortably in bed. Denies recent N/V/F/C/CP/SOB/D/posterior calf pain with squeeze Review of Systems - Review of Systems Review of Systems: ROS as per HPI Past Patient History - Infectious Disease Hx of Infectious Diseases: None - Tetanus Immunizations Tetanus Immunization: Unknown - Past Social History Smoking Status: Never Smoked - CARDIAC Hx Cardiac Disorders: Yes - PULMONARY Hx Respiratory Disorders: No - NEUROLOGICAL Hx Migraine: Yes - HEENT Hx HEENT Problems: Yes Hx Cataracts: Yes Other/Comment: eyeglasses - RENAL Hx Chronic Kidney Disease: Yes - ENDOCRINE/METABOLIC Hx Endocrine Disorders: Yes Hx Diabetes Mellitus Type 2: Yes - HEMATOLOGICAL/ONCOLOGICAL Hx Blood Disorders: Yes Hx Anemia: Yes Hx Shingles: Yes (3 years ago) Other/Comment: had chickenpox as a child - INTEGUMENTARY Hx Dermatological Problems: No - MUSCULOSKELETAL/RHEUMATOLOGICAL Hx Musculoskeletal Disorders: Yes Hx Arthritis: Yes Hx Back Pain: Yes (spinal disc) Hx Falls: Yes Hx Osteomyelitis: Yes Hx Unsteady Gait: Yes (left BKA 2 YRS ago, use protestis) - GASTROINTESTINAL Hx Gastrointestinal Disorders: Yes Hx Gastroesophageal Reflux: Yes Other/Comment: gastritis,colon polyps - GENITOURINARY/GYNECOLOGICAL Hx Genitourinary Disorders: No - PSYCHIATRIC Hx Psychophysiologic Disorder: Yes Hx Anxiety: Yes Hx Depression: Yes Hx Emotional Abuse: No Hx Physical Abuse: No - SURGICAL HISTORY Hx Surgeries: Yes (RIGHT EYE CATARACT) Hx Amputation: Yes Hx Open Heart Surgery: Yes (CABAGE) Hx Orthopedic Surgery: Yes (L BKA) - ANESTHESIA Hx Anesthesia Reactions: No Hx Malignant Hyperthermia: No Meds Allergies/Adverse Reactions: Allergies Allergy/AdvReac Type Severity Reaction Status Date / Time No Known Allergies Allergy Verified 06/03/17 16:21 - Medications Medications: Current Medications Alprazolam (Xanax) 0.25 mg PO TID [facility] PRN Reason: Protocol Stop: 06/11/17 14:01 Last Admin: 06/04/17 18:11 Dose: 0.25 mg Atorvastatin Calcium (Lipitor) 10 mg PO [facility] Clopidogrel Bisulfate (Plavix) 75 mg PO DAILY [facility] Last Admin: 06/04/17 13:28 Dose: 75 mg Escitalopram Oxalate (Lexapro) 10 mg PO DAILY [facility] Last Admin: 06/04/17 13:28 Dose: 10 mg Glipizide (Glucotrol) 10 mg PO BID [facility] Last Admin: 06/04/17 18:11 Dose: 10 mg Insulin Human Regular (Humulin R Low) 0 units SC ACHS [facility] PRN Reason: Protocol Last Admin: 06/04/17 16:31 Dose: 1 units Metformin HCl (Glucophage) 1,000 mg PO BID [facility] Last Admin: 06/04/17 18:11 Dose: 1,000 mg Physical Exam - Extremities Exam Additional comments: LE focused exam: Vasc: DP/PT pulses palpable b/l. Skin temperature warm to warm from proximal to distal. CFT < 3 seconds to all digits b/l. No erythema noted b/l Neuro: Epicritic and protective sensation grossly intact b/l. Derm: Long, dystrophic nails 1-5 b/l. Otherwise no open lesions, wounds, maceration, xerosis, abnormal pigmentation or abnormal growths noted b/l MSK: No POP b/l. ROM WNL to all major joints b/l Results - Vital Signs Recent Vital Signs: Last Vital Signs Temp 97.8 F 06/04/17 08:08 Pulse 86 06/04/17 08:08 Resp 14 06/04/17 08:08 BP 147/74 06/04/17 08:08 Pulse Ox 96 06/04/17 05:00 - Labs Result Diagrams: 06/04/17 10:15 06/03/17 19:48 Labs: Laboratory Results - last 24 hr 06/03/17 06/03/17 06/03/17 19:48 19:48 19:48 WBC 15.9 H D RBC 4.21 Hgb 11.9 L Hct 36.8 MCV 87.4 MCH 28.3 MCHC 32.3 RDW 14.4 Plt Count 217 MPV 10.9 Gran % 82.3 H Lymph % (Auto) 12.7 L [place] % (Auto) 4.3 Eos % (Auto) 0.6 L Baso % (Auto) 0.1 Gran # 13.06 H Lymph # 2.0 [place] # 0.7 H Eos # 0.1 Baso # 0.02 PT 12.4 INR 1.09 H APTT 26.3 Sodium 135 Potassium 4.0 Chloride 99 Carbon Dioxide 26 Anion Gap 15 BUN 14 Creatinine 0.5 L Est GFR ( Amer) > 60 Est GFR (Non-Af Amer) > 60 POC Glucose (mg/dL) Random Glucose 166 H Calcium 9.7 Total Bilirubin 0.8 AST 33 ALT 31 Alkaline Phosphatase 59 Total Protein 7.3 Albumin 4.1 Globulin 3.2 Albumin/Globulin Ratio 1.3 Urine Color Urine Appearance Urine pH Ur Specific [place] Urine Protein Urine Glucose (UA) Urine Ketones Urine Blood Urine Nitrate Urine Bilirubin Urine Urobilinogen Ur Leukocyte Esterase Urine RBC Urine WBC Ur Epithelial Cells Urine Bacteria 06/04/17 06/04/17 06/04/17 07:32 10:15 11:29 WBC 13.8 H RBC 4.15 Hgb 11.8 L Hct 35.8 L MCV 86.3 MCH 28.4 MCHC 33.0 RDW 14.4 Plt Count 224 MPV 10.6 Gran % Lymph % (Auto) [place] % (Auto) Eos % (Auto) Baso % (Auto) Gran # Lymph # [place] # Eos # Baso # PT INR APTT Sodium Potassium Chloride Carbon Dioxide Anion Gap BUN Creatinine Est GFR ( Amer) Est GFR (Non-Af Amer) POC Glucose (mg/dL) 228 H 231 H Random Glucose Calcium Total Bilirubin AST ALT Alkaline Phosphatase Total Protein Albumin Globulin Albumin/Globulin Ratio Urine Color Urine Appearance Urine pH Ur Specific [place] Urine Protein Urine Glucose (UA) Urine Ketones Urine Blood Urine Nitrate Urine Bilirubin Urine Urobilinogen Ur Leukocyte Esterase Urine RBC Urine WBC Ur Epithelial Cells Urine Bacteria 06/04/17 06/04/17 15:00 16:24 WBC RBC Hgb Hct MCV MCH MCHC RDW Plt Count MPV Gran % Lymph % (Auto) [place] % (Auto) Eos % (Auto) Baso % (Auto) Gran # Lymph # [place] # Eos # Baso # PT INR APTT Sodium Potassium Chloride Carbon Dioxide Anion Gap BUN Creatinine Est GFR ( Amer) Est GFR (Non-Af Amer) POC Glucose (mg/dL) 231 H Random Glucose Calcium Total Bilirubin AST ALT Alkaline Phosphatase Total Protein Albumin Globulin Albumin/Globulin Ratio Urine Color Yellow Urine Appearance Clear Urine pH 6.5 Ur Specific [place] 1.015 Urine Protein Trace H Urine Glucose (UA) >=1000 Urine Ketones Trace H Urine Blood Negative Urine Nitrate Negative Urine Bilirubin Negative Urine Urobilinogen 0.2 Ur Leukocyte Esterase Negative Urine RBC 0 - 2 Urine WBC 0 - 2 Ur Epithelial Cells 1 - 3 Urine Bacteria Small Assessment & Plan - Assessment and Plan (Free Text) Assessment: 66 year old female seen at bedside for elongated, dystrophic nails Plan: Patient seen and evaluated at bedside with attending Dr. Neal Afebrile, WBC 13.8 Podiatry will cut patient's nails during rounds tomorrow - Date & Time Date: 06/04/17 Time: 18:29
[2017-06-04] MEDS ORDERED: Oxycodone/Acetaminophen 5/325 mg Tab PO PRN (19:48)
--- NOTE | 2017-06-04 23:48 | HP ---
CHIEF COMPLAINT AND HISTORY OF PRESENT ILLNESS: This is a 66-year-old female who was coming into the hospital because of fall. The patient states that she had a fall yesterday and came in for further evaluation. She has an x-ray done and she was found to have a fracture of the left hip, minimally displaced and fracture of the proximal humerus, which is also minimally displaced. 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 She states that she fell out of her wheelchair. The patient is alert. She has no complaints of any headache or dizziness. She denied any trauma to her head. She has no fever. No nausea or vomiting. No history of frequency. No nocturia. PAST MEDICAL HISTORY: 1. Hypertension. 2. Diabetes type 2. 3. Migraine headaches. 4. Shingles. PAST SURGICAL HISTORY: Left BKA. FAMILY HISTORY: Noncontributory. SOCIAL HISTORY: She never smoked. She denies alcohol or drug use. REVIEW OF SYSTEMS: All other review of symptoms are within normal limits except as mentioned. ALLERGIES: NO KNOWN DRUG ALLERGIES. PHYSICAL EXAMINATION VITAL SIGNS: Temperature 97.8, pulse of 86, blood pressure of 147/74 and respirations 14. Height is 5 feet 2 inches, weight is 162 pounds, BMI is 29.6. GENERAL: The patient lying in bed, uncomfortable, and in no acute distress. HEENT: Atraumatic and normocephalic. Anicteric sclerae. Moist mucosa. [place] conjunctivae. No oral lesions. NECK: No JVD, anterior and posterior adenopathy, thyromegaly, or bruits. CARDIOVASCULAR: S1 and S2 regular. No murmur, rubs, or gallop. LUNGS: Clear to auscultation bilaterally. No wheezes, rales, or rhonchi. ABDOMEN: Bowel sounds are positive. Soft, nontender and nondistended. No hepatosplenomegaly. No rebound and no guarding. EXTREMITIES: No cyanosis, clubbing, or edema. Left leg BKA. NEUROLOGIC: No facial asymmetry. Tongue is midline. No uvula deviation. Power is 5/5 upper extremity and lower extremity. Sensation intact in upper extremity and lower extremity. PSYCHIATRIC: She is awake, alert and oriented x3. No anxiety or depression. She has normal affect. GENITOURINARY: No CVA tenderness. VASCULAR: 2+ pulses in the carotid pulses and pedal pulses. SKIN: No erythema or nodules. SPINE: Shows normal curvature. CT of the head done shows no acute intracranial abnormalities, there is moderate age related changes. CT of the left hip shows non-displaced fracture of the greater trochanter, a tiny fracture fragment is identified lateral to the femoral neck. Left shoulder, there is mildly displaced fracture in the humeral head. Hip; pelvic x-ray shows no acute displaced fracture or dislocation. ASSESSMENT: 1. Fall. 2. Left femoral fracture, nondisplaced. 3. Left humerus fracture, mildly displaced. 4. Diabetes type 2. 5. Hypertension. 6. Migraine headaches. 7. Dyslipidemia. 8. Peripheral arterial disease. PLAN: The patient is going to be admitted to the hospital. She does have 2 fractures as she was seen by Dr. Thomason, no surgical intervention is going to be done. The patient will need to continue her diabetes medications. She is on metformin and glipizide. I will place her on insulin sliding scale. She is on Lexapro for anxiety. She is on Lipitor for dyslipidemia. She is on Plavix for her peripheral arterial disease. Xanax as needed. She is on heart healthy diet. Follow with Dr. Neal to evaluate the patient as well for her right foot pain. The patient does have peripheral arterial disease. Dionicio Lyons MD
[2017-06-05 07:20] LABS: HEMOGLOBIN 11.6 g/dL (12.0-16.0); MEAN CELL VOLUME 85.7 fl (80.0-105.0); MEAN CORPUSCULAR HGB CONC 32.7 g/dl (31.0-37.0); MEAN PLATELET VOLUME 10.4 fl (7.0-11.0); RBC 4.14 10^6/uL (3.5-6.1); RED CELL DISTRIBUTION WIDTH 14.7 % (11.5-14.5); WHITE BLOOD COUNT 13.6 10^3/ul (4.5-11.0)
[2017-06-05 07:52] LABS: ALB/GLOB RATIO 1.1 (1.1-1.8); ALBUMIN 3.8 g/dL (3.0-4.8); ALT/SGPT 28 U/L (7-56); AST/SGOT 22 U/L (14-36); BLOOD UREA NITROGEN 13 mg/dL (7-21); CALCIUM 9.5 mg/dL (8.4-10.5); GFR AFRICAN-AMERICAN > 60; GFR NON-AFRICAN AMERICAN > 60
[2017-06-05] MEDS: Insulin Reg-LOW-Coverage SC SCH ×3 (10:53→16:27)
--- NOTE | 2017-06-05 10:55 | CP.PCM.PN ---
<Gissell Quintanilla - Last Filed: 06/05/17 10:51> Subjective - Date & Time of Evaluation Date of Evaluation: 06/05/17 Time of Evaluation: 10:51 - Subjective Subjective: PGY-[address] Lyons Pt enjoyed and tolerated breakfast. Pt requested wheelchair but was denied due to safety concern. Pt agreeable to rehab. Baseline pain was minimal but aggravated by movements. Objective - Vital Signs/Intake and Output Vital Signs (last 24 hours): Temp Pulse Resp BP Pulse Ox 99.2 F 100 H 20 137/71 94 L 06/05/17 08:00 06/05/17 08:00 06/05/17 08:00 06/05/17 08:00 06/05/17 08:00 Intake and Output: 06/05/17 06/05/17 06:59 18:59 Intake Total 480 260 Output Total 3 Balance 480 257 - Medications Medications: Current Medications Alprazolam (Xanax) 0.25 mg PO TID [facility] PRN Reason: Protocol Stop: 06/11/17 14:01 Last Admin: 06/04/17 18:11 Dose: 0.25 mg Atorvastatin Calcium (Lipitor) 10 mg PO HS [facility] Last Admin: 06/04/17 22:05 Dose: 10 mg Clopidogrel Bisulfate (Plavix) 75 mg PO DAILY [facility] Last Admin: 06/04/17 13:28 Dose: 75 mg Docusate Sodium (Colace) 100 mg PO DAILY [facility] Escitalopram Oxalate (Lexapro) 10 mg PO DAILY [facility] Last Admin: 06/04/17 13:28 Dose: 10 mg Glipizide (Glucotrol) 10 mg PO BID [facility] Last Admin: 06/04/17 18:11 Dose: 10 mg Insulin Human Regular (Humulin R Low) 0 units SC ACHS [facility] PRN Reason: Protocol Last Admin: 06/04/17 22:06 Dose: Not Given Metformin HCl (Glucophage) 1,000 mg PO BID [facility] Last Admin: 06/04/17 18:11 Dose: 1,000 mg Nystatin (Nystop Topical Powder) 1 gm TOP BID [facility] Oxycodone/Acetaminophen (Percocet 5/325 Mg Tab) 1 tab PO Q4H PRN PRN Reason: Pain, moderate (4-7) Stop: 06/07/17 19:49 - Labs Labs: 06/05/17 06:45 06/05/17 06:45 PT 12.4 SECONDS (9.4-12.5) 06/03/17 19:48 INR 1.09 (0.93-1.08) H 06/03/17 19:48 APTT 26.3 Seconds (25.1-36.5) 06/03/17 19:48 - Constitutional Appears: No Acute Distress - Head Exam Head Exam: ATRAUMATIC, NORMAL INSPECTION, NORMOCEPHALIC - Eye Exam Eye Exam: EOMI, Normal appearance, PERRL. absent: Scleral icterus Pupil Exam: NORMAL ACCOMODATION - ENT Exam ENT Exam: Mucous Membranes Moist - Neck Exam Additional comments: supple - Respiratory Exam Respiratory Exam: Clear to Ausculation Bilateral, NORMAL BREATHING PATTERN - Cardiovascular Exam Cardiovascular Exam: REGULAR RHYTHM, +S1, +S2 - GI/Abdominal Exam GI & Abdominal Exam: Distended, Soft, Normal Bowel Sounds. absent: Tenderness - Extremities Exam Extremities Exam: absent: Calf Tenderness Additional comments: Splint on L shoulder. Palpable radial pulses Pain upon palpation of L hip. L bip BKA R LE crocker negative - Neurological Exam Neurological Exam: Alert, Awake - Psychiatric Exam Psychiatric exam: Normal Affect, Normal Mood - Skin Skin Exam: Dry, Warm Assessment and Plan - Assessment and Plan (Free Text) Plan: Ms Lyon 66F, with PMHx of HTN, diabetes, and L BKA ambulating with prosthesis and walker, was admitted s/p witnessed mechanical fall at home, who sustained 2 fractures (1) L hip greater trochanter fracture, minimally displaced and (2) Proximal humerus, greater trochanter fracure, min displaced. A: 1. Mechanical fall, witnessed 2. L Humerus fracture, min displaced 3. L hip fracture, min displaced 4. PAD s/p toes amputation 5. Diabetes DM2 6. HTN 7. CAD s/p CABG 8. Hx CVA 9. Anxiety P: No need for surgery per ortho Anticipated healing 4-6 weeks Percocet PRN with Colace Recommend CHAPO per ortho Xanax 0.2 TID, Lexapro Plavix for PAD Glipizide 10 bid, metformin 1000 bid. ISSS PT/OT Heart Health diet Consult: Paddy Chirinos s/r/d/w Dr. Lyons <Dionicio Lyons S - Last Filed: 06/06/17 00:30> Objective - Vital Signs/Intake and Output Vital Signs (last 24 hours): Temp Pulse Resp BP Pulse Ox 98.2 F 93 H 20 127/51 L 96 06/05/17 16:27 06/05/17 16:27 06/05/17 16:27 06/05/17 16:27 06/05/17 16:27 Intake and Output: 06/05/17 06/06/17 18:59 06:59 Intake Total 260 780 Output Total 3 Balance 257 780 - Medications Medications: Current Medications Alprazolam (Xanax) 0.25 mg PO BID [facility] PRN Reason: Protocol Stop: 06/12/17 18:01 Last Admin: 06/05/17 18:17 Dose: Not Given Alprazolam (Xanax) 0.25 mg PO HS [facility] PRN Reason: Protocol Stop: 06/12/17 22:01 Last Admin: 06/05/17 21:28 Dose: 0.25 mg Atorvastatin Calcium (Lipitor) 10 mg PO HS [facility] Last Admin: 06/05/17 21:28 Dose: 10 mg Clopidogrel Bisulfate (Plavix) 75 mg PO DAILY [facility] Last Admin: 06/05/17 10:58 Dose: 75 mg Docusate Sodium (Colace) 100 mg PO DAILY [facility] Last Admin: 06/05/17 10:58 Dose: 100 mg Escitalopram Oxalate (Lexapro) 10 mg PO DAILY [facility] Last Admin: 06/05/17 10:58 Dose: 10 mg Glipizide (Glucotrol) 10 mg PO BID [facility] Last Admin: 06/05/17 17:15 Dose: 10 mg Insulin Human Regular (Humulin R Low) 0 units SC [facility] PRN Reason: Protocol Last Admin: 06/05/17 16:27 Dose: Not Given Metformin HCl (Glucophage) 1,000 mg PO BID [facility] Last Admin: 06/05/17 17:15 Dose: 1,000 mg Nystatin (Nystop Topical Powder) 1 gm TOP BID [facility] Last Admin: 06/05/17 18:17 Dose: 1 applic Oxycodone/Acetaminophen (Percocet 5/325 Mg Tab) 1 tab PO Q4H PRN PRN Reason: Pain, moderate (4-7) Stop: 01/13/18 19:49 Last Admin: 06/05/17 10:59 Dose: 1 tab - Labs Labs: 06/05/17 06:45 06/05/17 06:45 PT 12.4 SECONDS (9.4-12.5) 06/03/17 19:48 INR 1.09 (0.93-1.08) H 06/03/17 19:48 APTT 26.3 Seconds (25.1-36.5) 06/03/17 19:48 Assessment and Plan - Assessment and Plan (Free Text) Plan: Pt seen by me and above note reviewed. Pt seen and examined. Labs and vitals reviewed.Agree with above note. Pt to be go to [facility]. She agreeable. Meds reviewed.
[2017-06-05] MEDS: Nystatin 100,000 Units/gm Topical Pow(15 gm) TOP SCH ×2 (12:48→18:17)
--- NOTE | 2017-06-05 15:06 | CP.PCM.PN ---
Subjective - Date & Time of Evaluation Date of Evaluation: 06/05/17 Time of Evaluation: 15:03 - Subjective Subjective: 66 year old female seen at bedside for elongated, dystrophic nails. Patient usually comes into Dr. Neal's clinic to have her toenails trimmed and states that her next appointment was scheduled for today. Denies any other pedal complaints at this time. Is AAO x 3 and NAD, resting comfortably in bed. Denies recent N/V/F/C/CP/SOB/D/posterior calf pain with squeeze Objective - Vital Signs/Intake and Output Vital Signs (last 24 hours): Temp Pulse Resp BP Pulse Ox 99.2 F 100 H 20 137/71 94 L 06/05/17 08:00 06/05/17 08:00 06/05/17 08:00 06/05/17 08:00 06/05/17 08:00 Intake and Output: 06/05/17 06/05/17 06:59 18:59 Intake Total 480 260 Output Total 3 Balance 480 257 - Medications Medications: Current Medications Alprazolam (Xanax) 0.25 mg PO BID [facility] PRN Reason: Protocol Stop: 06/12/17 18:01 Alprazolam (Xanax) 0.25 mg PO HS [facility] PRN Reason: Protocol Stop: 06/12/17 22:01 Atorvastatin Calcium (Lipitor) 10 mg PO HS [facility] Last Admin: 06/04/17 22:05 Dose: 10 mg Clopidogrel Bisulfate (Plavix) 75 mg PO DAILY [facility] Last Admin: 06/05/17 10:58 Dose: 75 mg Docusate Sodium (Colace) 100 mg PO DAILY [facility] Last Admin: 06/05/17 10:58 Dose: 100 mg Escitalopram Oxalate (Lexapro) 10 mg PO DAILY [facility] Last Admin: 06/05/17 10:58 Dose: 10 mg Glipizide (Glucotrol) 10 mg PO BID [facility] Last Admin: 06/05/17 10:58 Dose: 10 mg Insulin Human Regular (Humulin R Low) 0 units SC [facility] PRN Reason: Protocol Last Admin: 06/05/17 12:47 Dose: 4 units Metformin HCl (Glucophage) 1,000 mg PO BID [facility] Last Admin: 06/05/17 10:58 Dose: 1,000 mg Nystatin (Nystop Topical Powder) 1 gm TOP BID [facility] Last Admin: 06/05/17 12:48 Dose: 1 applic Oxycodone/Acetaminophen (Percocet 5/325 Mg Tab) 1 tab PO Q4H PRN PRN Reason: Pain, moderate (4-7) Stop: 06/07/17 19:49 Last Admin: 06/05/17 10:59 Dose: 1 tab - Labs Labs: 06/05/17 06:45 06/05/17 06:45 PT 12.4 SECONDS (9.4-12.5) 06/03/17 19:48 INR 1.09 (0.93-1.08) H 06/03/17 19:48 APTT 26.3 Seconds (25.1-36.5) 06/03/17 19:48 - Constitutional Appears: Well, Non-toxic, No Acute Distress - Extremities Exam Additional comments: LE focused exam: Vasc: DP/PT pulses palpable. Skin temperature warm to warm from proximal to distal. CFT < 3 seconds to all digits. No erythema noted Neuro: Epicritic and protective sensation grossly diminished Derm: Long, dystrophic nails noted to right foot. Otherwise no open lesions, wounds, maceration, xerosis, abnormal pigmentation or abnormal growths noted b/l MSK: No POP b/l. ROM WNL to all major joints of right foot. BKA noted to left leg. Third digit amputation noted to right foot, healed - Neurological Exam Neurological Exam: Alert, Awake, Oriented x3 - Psychiatric Exam Psychiatric exam: Normal Affect, Normal Mood Assessment and Plan - Assessment and Plan (Free Text) Assessment: 66 year old female seen at bedside for elongated, dystrophic nails Plan: Patient seen and evaluated at bedside Plan discussed with attending Dr. Neal All remaining toe nails were trimmed down to an appropriate length using nail nipper without incident Patient tolerated the procedure well Podiatry will sign off at this time Thank you for consult and please reconsult in future as needed
[2017-06-06] MEDS: Insulin Reg-LOW-Coverage SC SCH ×2 (07:56→11:45)
[2017-06-06] MEDS: Nystatin 100,000 Units/gm Topical Pow(15 gm) TOP SCH (09:22)
--- NOTE | 2017-06-06 12:38 | DS ---
HISTORY OF PRESENT ILLNESS: This is a 66-year-old female who had come into the hospital after a fall. The patient was found to have a left femur fracture. She is to go to subacute rehab. She has no complaints of any headaches or dizziness. She is not able to work much with physical therapy. PHYSICAL EXAMINATION: VITAL SIGNS: Temperature is 98.2, pulse is 93, blood pressure is 127/51, respirations are 20, and O2 saturation 96%. GENERAL: The patient is lying in bed, flat, comfortable. HEENT: No oral lesion. Anicteric sclerae. Moist mucosa. NECK: No JVD, adenopathy, or thyromegaly. CARDIOVASCULAR: S1 and S2, regular. No murmurs, rubs, or gallops. LUNGS: Clear to auscultation bilaterally. No wheeze, rales, or rhonchi. ABDOMEN: Bowel sounds are positive, soft, nontender and nondistended. EXTREMITIES: no cyanosis, clubbing or edema. ASSESSMENT: 1. Fall. 2. Left femur fracture, nondisplaced. 3. Left humerus fracture, mildly displaced. 4. Diabetes type 2. 5. Hypertension. 6. Migraine headaches. 7. Dyslipidemia. 8. Peripheral arterial disease. PLAN: The patient is on metformin for diabetes. She is on Colace for constipation. The patient is going to continue with Lexapro for anxiety. The patient is on Lipitor for dyslipidemia. She is going to continue with her Plavix. She is on Xanax for anxiety. She is on a heart-healthy diet. Dionicio Lyons MD
[2017-06-06 15:56] VITALS: BP 134/74; PULSE 85; RESP 20; TEMP 98.7; O2SAT 94
== END 2017-06-06 16:22 | DRG 562 ==
LOC: ED 16:00 → ERH 19:42 → 5RSO 06-04 06:54
PROVIDERS: ADMIT Internal Medicine Nephrology; ATTEND Internal Medicine Nephrology
DX: S42.252A Displaced fracture of greater tuberosity of left humerus, initial encounter for closed fracture (principal); S72.112A Displaced fracture of greater trochanter of left femur, initial encounter for closed fracture; E11.22 Type 2 diabetes mellitus with diabetic chronic kidney disease; E11.51 Type 2 diabetes mellitus with diabetic peripheral angiopathy without gangrene; S73.109A Unspecified sprain of unspecified hip, initial encounter; E78.5 Hyperlipidemia, unspecified; F41.9 Anxiety disorder, unspecified; D64.9 Anemia, unspecified; L03.90 Cellulitis, unspecified; W05.0XXA Fall from non-moving wheelchair, initial encounter; Y92.009 Unspecified place in unspecified non-institutional (private) residence as the place of occurrence of the external cause; G43.909 Migraine, unspecified, not intractable, without status migrainosus; I12.9 Hypertensive chronic kidney disease with stage 1 through stage 4 chronic kidney disease, or unspecified chronic kidney disease; I25.10 Atherosclerotic heart disease of native coronary artery without angina pectoris; K21.9 Gastro-esophageal reflux disease without esophagitis; N18.9 Chronic kidney disease, unspecified; Z86.010 Personal history of colon polyps; Z86.73 Personal history of transient ischemic attack (TIA), and cerebral infarction without residual deficits; Z89.512 Acquired absence of left leg below knee; Z95.1 Presence of aortocoronary bypass graft; H26.9 Unspecified cataract; M19.90 Unspecified osteoarthritis, unspecified site; Z89.429 Acquired absence of other toe(s), unspecified side

== ENCOUNTER 2018-09-21 20:33 | Inpatient (IN) | payer MEDICARE, BC ==
[2018-09-21 20:36] VITALS: BMI 29.2
[2018-09-21 20:59] LABS: BASO # 0.02 K/mm3 (0.0-2.0); BASO % 0.2 % (0.0-3.0); EOS # 0.2 (0.0-0.7); EOS % 2.2 % (1.5-5.0); HEMOGLOBIN 11.6 g/dL (12.0-16.0); LYMPH # 2.8 (1.2-3.4); LYMPH % 29.1 % (22.0-35.0); MEAN CELL VOLUME 88.7 fl (80.0-105.0); MEAN CORPUSCULAR HEMOGLOBIN 28.6 pg (25.0-35.0); MEAN CORPUSCULAR HGB CONC 32.2 g/dl (31.0-37.0); MEAN PLATELET VOLUME 10.8 fl (7.0-11.0); MONO # 0.5 (0.1-0.6); MONO % 5.5 % (1.0-6.0); RBC 4.06 10^6/uL (3.5-6.1); RED CELL DISTRIBUTION WIDTH 14.4 % (11.5-14.5); WHITE BLOOD COUNT 9.6 10^3/uL (4.5-11.0)
[2018-09-21 21:09] LABS: INR 1.06; PARTIAL THROMBOPLASTIN TIME 29.2 Seconds (26.9-38.3); PROTHROMBIN TIME 11.8 SECONDS (9.4-12.5)
[2018-09-21 21:13] LABS: ALB/GLOB RATIO 1.2 (1.1-1.8); ALBUMIN 4.3 g/dL (3.0-4.8); ALT/SGPT 19 U/L (7-56); AST/SGOT 38 U/L (14-36); BLOOD UREA NITROGEN 18 mg/dL (7-21); CALCIUM 9.4 mg/dL (8.4-10.5); GFR NON-AFRICAN AMERICAN > 60; HDL CHOLESTEROL 34 mg/dL (29-60)
--- NOTE | 2018-09-21 21:16 | ED PDOC ---
Arrival/HPI - General Chief Complaint: Weakness/Neurological Deficit Time Seen by Provider: 09/21/18 20:34 Historian: Patient, Family - Critical Care Critical Care Minutes: 30 minutes - History of Present Illness Narrative History of Present Illness (Text): Camron Awan is a 68 year old female, with pmhx of TIA, Dementia, diabetes, and CABG, on Plavix and Aspirin, presents to the emergency department for stroke like symptoms. Family notes that 1 hour prior to arrival pt was at baseline mentation and physical capacity. Patient was verbal and moving all extremities well. Pt was more quiet than usual at dinner, and after dinner she became incoherent and soon after, unable to speak. Family informs she was also unable to follow commands. Patient is not verbally responding currently, but is awake and alert. HPI and ROS limited due to patient unresponsiveness/AMS. Family deny any trauma or fall to the patient. No recent fever, chills or night sweats complained prior No headache or neck stiffness prior to arrival Time/Duration: 1 hour Symptom Onset: Gradual Symptom Course: Unchanged Activities at Onset: Light, Eating Context: Home Past Medical History - Provider Review Nursing Documentation Reviewed: Yes - Infectious Disease Hx of Infectious Diseases: None - Tetanus Immunization Tetanus Immunization: Unknown - Cardiac Hx Cardiac Disorders: Yes Hx Hypertension: Yes - Pulmonary Hx Respiratory Disorders: No - Neurological HX Cerebrovascular Accident: Yes - HEENT Hx HEENT Disorder: Yes Hx Cataracts: Yes Other/Comment: eyeglasses - Renal Hx Renal Disorder: Yes - Endocrine/Metabolic Hx Diabetes Mellitus Type 2: Yes - Hematological/Oncological Hx Blood Disorders: Yes Hx Anemia: Yes Hx Shingles: Yes (3 years ago) Other/Comment: had chickenpox as a child - Integumentary Hx Dermatological Disorder: No - Musculoskeletal/Rheumatological Hx Arthritis: Yes - Gastrointestinal Hx Gastrointestinal Disorders: Yes Hx Gastroesophageal Reflux: Yes Other/Comment: gastritis,colon polyps - Genitourinary/Gynecological Hx Genitourinary Disorders: No - Psychiatric Hx Psychophysiologic Disorder: Yes Hx Anxiety: Yes Hx Depression: Yes Hx Emotional Abuse: No Hx Physical Abuse: No Hx Substance Use: No - Surgical History Hx Amputation: Yes Hx Open Heart Surgery: Yes (CABG) Hx Orthopedic Surgery: Yes (L BKA) - Anesthesia Hx Anesthesia Reactions: No Hx Malignant Hyperthermia: No - Suicidal Assessment Feels Threatened In Home Enviroment: No Family/Social History - Physician Review Nursing Documentation Reviewed: Yes Family/Social History: No Known Family HX Smoking Status: Never Smoked Hx Alcohol Use: No Hx Substance Use: No Hx Substance Use Treatment: No Allergies/Home Meds Allergies/Adverse Reactions: Allergies No Known Allergies Allergy (Verified 09/21/18 20:37) Home Medications: Home Meds Medication Instructions Recorded Confirmed Atorvastatin [Lipitor] 10 mg PO HS 06/04/17 06/04/17 Clopidogrel [Plavix] 75 mg PO DAILY 06/04/17 06/04/17 Escitalopram [Lexapro] 10 mg PO DAILY 06/04/17 06/04/17 GlipiZIDE [Glucotrol] 10 mg PO BID 06/04/17 06/04/17 MetFORMIN [glucoPHAGE] 1,000 mg BID 06/04/17 06/04/17 Review of Systems - Physician Review All systems were reviewed & negative as marked: Yes - Review of Systems Systems not reviewed;Unavailable: Altered Mental Status Physical Exam Vital Signs Reviewed: Yes Vital Signs Pulse Resp BP Pulse Ox 09/21/18 20:40 89 18 128/73 100 Blood Pressure: Normal Pulse: Regular Respiratory Rate: Normal - Systems Exam Head: Present: Atraumatic, Normocephalic Pupils: Present: PERRL Extroacular Muscles: Present: EOMI Conjunctiva: Present: Normal Ears: Present: Normal, NORMAL TM Mouth: Present: Moist Mucous Membranes Pharnyx: Present: Normal. No: ERYTHEMA, EXUDATE Nose (Internal): Present: Normal Inspection Neck: Present: Normal Range of Motion. No: Meningeal Signs, MIDLINE TENDERNESS Respiratory/Chest: Present: Clear to Auscultation, Good Air Exchange. No: Res piratory Distress, Accessory Muscle Use Cardiovascular: Present: Regular Rate and Rhythm, Normal S1, S2. No: Murmurs Abdomen: No: Tenderness, Distention, Peritoneal Signs Upper Extremity: Present: NORMAL PULSES, Other (RUE weakness). No: Cyanosis, Edema, Swelling, Erythema Lower Extremity: Present: NORMAL PULSES, Other (RLE weakness). No: Edema, Swelling, Erythema Neurological: Present: Other (aphasic) Skin: Present: Warm, Dry, Normal Color. No: Rashes Psychiatric: Present: Alert Medical Decision Making ED Course and Treatment: 09/21/18 21:18 Impression: 68 year old female presents with possible stroke. 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 NIHSS 14 initially, Pt with RUE and RLE weakness with R facial droop and pt aphasic. No signs of trauma or fall on exam. Code stroke called. Family deny any stroke within the past 3 months but pt has recently been dx with dementia. Plan: -- Type and sceen -- CT Head -- EKG -- CMP, A1C, Lipid, Trop -- Code Stroke Consult -- Chest X-ray -- Reassess and disposition Prior Visits: Notes and results from previous visits were reviewed. Progress Notes: EKG Reviewed by me, shows: NSR @ 90BPM PACs, Possible digitalis effect No STEMI 09/21/18 Patient initial NIH score:14 09/21/182047 Upon reevaluation, patient is responding, no slurred speech or dysarthria. Patient moving extremities well, with 4/5 right upper and right lower strength, with drift. Pt also following commands. Patient otherwise informs feeling sleepy, but denies any pain. CT reviewed showing no hemorrhagic stroke. Patient exhibits mild right sided facial droop, with flat nasolabial fold. Current NIH score: 5 09/21/182052 Pt now MAEW, fully AOX3, with full strength and no drift. No facial droop per family at bedside. Current NIH score: 0 09/21/18 21:[address] Luz who has seen patient through televideo device, and recommends CTA and normal saline. No tPA at this time. 09/21/18 23:16 CTA largely unremarkable. appreciate consult w/ Dr. Lyons: to admit to his service pt in NAD, agreeable to plan. - RAD Interpretation Radiology Orders: 09/21/18 20:48 HEAD W/O (CODE STROKE) [CT] Stat CHEST PORTABLE [RAD] Stat - Medication Orders Current Medication Orders: Sodium Chloride (Sodium Chloride 0.9%) 1,000 mls @ 100 mls/hr IV .Q10H KULWANT NIHSS Scale ([place]) Time Performed: 08:34 - How Severe is the Stoke Baseline Level of Consciousness: 1=Drowsy LOC to Questions: 2=Neither correct LOC to commands: 2=Neither correct Best Gaze: 0=Normal Visual: 0=No visual loss Facial: 0=Normal Motor Arm - Left: 0=No drift Motor Arm - Right: 3=No effort against gravity (falls immediately) Motor Leg - Left: 0=No drift Motor Leg - Right: 3=No effort against gravity (falls immediately) Limb Ataxia: 1=Present Upper or Lower Sensory: 1=Mild to moderate loss Best Language: 2=Severe aphasia Dysarthia: 1=Mild to moderate slurring Extinction & Inattention (Neglect): 0=Normal, no object Score: 16 Risk Level: Mod/Sev Stroke Risk NIHSS Scale([place]) 2 Time Performed: 20:55 - How Severe is the Stoke Baseline Level of Consciousness: 0=Alert LOC to Questions: 0=Both comments correct LOC to commands: 0=Obeys both correctly Best Gaze: 0=Normal Visual: 0=No visual loss Facial: 0=Normal Motor Arm - Left: 0=No drift Motor Arm - Right: 0=No drift Motor Leg - Left: 0=No drift Motor Leg - Right: 0=No drift Limb Ataxia: 0=Absent Sensory: 0=Normal Best Language: 0=No aphasia Dysarthia: 0=Normal articulation Extinction & Inattention (Neglect): 0=Normal, no object Score: 0 Risk Level: No Stroke Risk - Scribe Statement The provider has reviewed the documentation as recorded by the Eduardibjacky Mullins Provider Scribe Attestation: All medical record entries made by the Eduardibjacky were at my direction and personally dictated by me. I have reviewed the chart and agree that the record accurately reflects my personal performance of the history, physical exam, medical decision making, and the department course for this patient. I have also personally directed, reviewed, and agree with the discharge instructions and disposition. Disposition/Present on Arrival - Present on Arrival Any Indicators Present on Arrival: No History of DVT/PE: No History of Uncontrolled Diabetes: Yes Urinary Catheter: No History of Decub. Ulcer: No History Surgical Site Infection Following: None - Disposition Have Diagnosis and Disposition been Completed?: Yes Diagnosis: TIA (transient ischemic attack) Disposition: HOSPITALIZED Disposition Time: 23:20 Patient Problems: Current Active Problems Problem Status Onset TIA (transient ischemic attack) Acute Condition: STABLE
[2018-09-21 21:24] LABS: LDL CHOLESTEROL 86 mg/dL (0-129)
[2018-09-21] MEDS: Sodium Chloride 0.9% 1,000 ML IV SCH (21:28)
[2018-09-21 21:33] LABS: TROPONIN I < 0.01 ng/mL
--- NOTE | 2018-09-21 21:36 | PCM.TLSTRK ---
TeleStroke Consultation - Consultation This telehealth visit and patient is being seen on: 09/21/18 Telehealth services using bi-directional audio/video at [facility]: [facility] Active/open-ended communication was used to verify the patient's full name, and date of with: Patient - History of Present Illness Chief/Complaint/History of Present of Illness: The patient is a 68 year-old F with a past medical history of multiple TIAs, HTN, DM, dementia, CAD, s/p CABG, on aspirin and plavix, who developed aphasia and right side weakness about an hour prior to arrival. But, his symptoms resolved spontaneously in the ED. Non-contrast CT scan of the head did not show any bleed. Last known well date: 09/21/18 Last known well time: 17:30 Patient is a candidate for thrombolytic therapy: No If not a candidate for thrombolytic,contraindication include: The patient improved rapidly and NIHSS is now at 1, which is the patient's baseline. - Imaging CT Head: Obtained, Reviewed TeleStroke Patient History - Past Family History Past Family History: Reviewed and not pertinent Pertinent Family History: Problem Relation Age of Onset - Past Social History Smoking Status: Never Smoked - CARDIAC Hx Cardiac Disorders: Yes Hx Hypertension: Yes - PULMONARY Hx Respiratory Disorders: No - NEUROLOGICAL HX Cerebrovascular Accident: Yes - HEENT Hx HEENT Problems: Yes Hx Cataracts: Yes Other/Comment: eyeglasses - RENAL Hx Chronic Kidney Disease: Yes - ENDOCRINE/METABOLIC Hx Diabetes Mellitus Type 2: Yes - HEMATOLOGICAL/ONCOLOGICAL Hx Blood Disorders: Yes Hx Anemia: Yes Hx Shingles: Yes (3 years ago) Other/Comment: had chickenpox as a child - INTEGUMENTARY Hx Dermatological Problems: No - MUSCULOSKELETAL/RHEUMATOLOGICAL Hx Arthritis: Yes - GASTROINTESTINAL Hx Gastrointestinal Disorders: Yes Hx Gastroesophageal Reflux: Yes Other/Comment: gastritis,colon polyps - GENITOURINARY/GYNECOLOGICAL Hx Genitourinary Disorders: No - PSYCHIATRIC Hx Psychophysiologic Disorder: Yes Hx Anxiety: Yes Hx Depression: Yes Hx Emotional Abuse: No Hx Physical Abuse: No Hx Substance Use: No - SURGICAL HISTORY Hx Amputation: Yes Hx Open Heart Surgery: Yes (CABG) Hx Orthopedic Surgery: Yes (L BKA) - ANESTHESIA Hx Anesthesia Reactions: No Hx Malignant Hyperthermia: No Meds Allergies/Adverse Reactions: Allergies Allergy/AdvReac Type Severity Reaction Status Date / Time No Known Allergies Allergy Verified 09/21/18 20:37 - Medications Medications: Current Medications Sodium Chloride (Sodium Chloride 0.9%) 1,000 mls @ 100 mls/hr IV .Q10H KULWANT Review of Systems - Review of Systems Systems not reviewed;Unavailable: Dementia NIHSS Stroke Scale - Date/Time Evaluation Performed Date Performed: 09/21/18 Time Performed: 21:10 (NIHSS = 1) When Was NIHSS Performed: Baseline - How Severe is the Stroke Level of Consciousness: 0=Alert LOC to Questions: 0=Both comments correct LOC to commands: 0=Obeys both correctly Best Gaze: 0=Normal Visual: 0=No visual loss Facial: 0=Normal Motor Arm - Left: 0=No drift Motor Arm - Right: 0=No drift Motor Leg - Left: 0=No drift Motor Leg - Right: 1=Drift before 5 sec Limb Ataxia: 0=Absent Sensory: 0=Normal Best Language: 0=No aphasia Dysarthia: 1=Mild to moderate slurring Extinction & Inattention (Neglect): 0=Normal, no object Score: 2 TeleStroke Exam - General Medical Examination Vital Signs (last 24 hours): Vital Signs - 24 hr 09/21/18 20:40 Pulse Rate 89 Respiratory 18 Rate Blood Pressure 128/73 O2 Sat by Pulse 100 Oximetry Weight in kilograms: 72.678990 - Neurological Examination Mental Status: Positive for: Fully Alert Cranial Nerves: Positive for: Visual cooper were full to confrontation, Version were full without, Facial sensation was full, Eye closure and smile were symmetric, No dysarthia was appreciated, Tongue protuded midline Motor: Positive for: Bulk and tone were normal Coordination: Positive for: No ataxia with finger to nose or heel to franco testing TeleStroke Plan - Review Patient's current medication list, allergies and medical problems were verified by the following method: Facility medical record I have reviewed all pertinent labs: Yes - Impression Impression: This is a 68 year old F with a history of multiple stroke risk factors who presented with resolving left MCA syndrome. She is currently at baseline and likely had another TIA. - IV-tPA Administration Patient is a candidate for thrombolytic therapy: No If not a candidate for thrombolytic,contraindication include: Symptoms improved. tPA total dose in mg (MAX: 90 mg): [id number] Plan: 1. Admit to telemetry 2. CTA of the head/neck 3. MRI brain without contrast 4. Echocardiogram with bubble study 5. Fluids with NS at 100 mL/hr 6. Permissive HTN, only treat BP higher than 220/110 mm Hg for the next 24 hours. 7. Give aspirin 325 mg once and continue Plavix 75 mg daily and Aspirin 81 mg daily tomorrow 8. Check lipid panel, HbA1c, B12, folate, TSH, vitamin D levels 9. PT/OT eval and treatment 10. Case management consult Thank you for this consultaiton.
--- NOTE | 2018-09-22 07:52 | CT ---
Date of service: 09/21/2018 PROCEDURE: CT HEAD WITHOUT CONTRAST. HISTORY: Code Stroke COMPARISON: None available. TECHNIQUE: Axial computed tomography images were obtained through the head/brain without intravenous contrast. Radiation dose: Total exam DLP = 1126.64 mGy-cm. This CT exam was performed using one or more of the following dose reduction techniques: Automated exposure control, adjustment of the mA and/or kV according to patient size, and/or use of iterative reconstruction technique. FINDINGS: HEMORRHAGE: No intracranial hemorrhage. BRAIN: No mass effect or edema. Moderate atrophy. Mild chronic microvascular disease. Focal encephalomalacia in the right posterior temporal lobe and parietal white matter. VENTRICLES: Unremarkable. No hydrocephalus. CALVARIUM: Unremarkable. PARANASAL SINUSES: Unremarkable as visualized. No significant inflammatory changes. MASTOID AIR CELLS: Unremarkable as visualized. No inflammatory changes. OTHER FINDINGS: The report concurs with the preliminary [facility] report IMPRESSION: No acute intracranial findings
[2018-09-22] MEDS: Insulin Reg-LOW-Coverage SC SCH ×4 (07:57→23:01)
--- NOTE | 2018-09-22 08:14 | CT ---
Date of service: 09/21/2018 PROCEDURE: CT Angiography of the Head and Neck. HISTORY: stroke COMPARISON: None available. TECHNIQUE: CT angiography of the head and neck was performed following intravenous contrast administration. Coronal and sagittal maximum intensity projection reformatted images were generated. Contrast Dose: Omnipaque 350, 100 cc Radiation dose: Total exam DLP = 522.8 mGy-cm. This CT exam was performed using one or more of the following dose reduction techniques: Automated exposure control, adjustment of the mA and/or kV according to patient size, and/or use of iterative reconstruction technique. FINDINGS: INTERNAL CEREBRAL ARTERIES: Note is made of partially calcified atherosclerosis of the bilateral cavernous internal carotid artery segments without significant stenosis. The skull base, petrous, and supraclinoid segments are bilaterally widely patent. ANTERIOR CEREBRAL ARTERIES: Unremarkable. A1 and A2 segments are widely patent. Smaller distal branches unremarkable, as visualized. MIDDLE CEREBRAL ARTERIES: Mildly hypoplastic left M1 MCA segment, nevertheless patent. Unremarkable right M1 and bilateral M2 segments, which are widely patent. Perisylvian branches grossly symmetric. POSTERIOR CIRCULATION: Basilar Artery: Unremarkable. Distal Vertebral Arteries: Left dominant vertebrobasilar circulation identified. Limited atherosclerotic changes are seen the bilateral distal vertebral arteries which are nevertheless widely patent. Posterior Cerebral Arteries: Unremarkable. Posterior Inferior Cerebellar Arteries: Unremarkable. NECK CTA: Aortic Arch: Normal three vessel arch identified. Common Carotid arteries: The bilateral common carotid appear widely patent from their origins to their bifurcations with no significant stenosis appreciated. [id number] right and mild left carotid bulbar atherosclerotic carotid plaque is identified. Distal right common carotid artery wall stent is identified entry into proximal right ICA as well. No evidence to suggest common carotid artery dissection. Internal Carotid arteries: No significant stenosis is appreciated throughout the cervical internal carotid artery segments bilaterally and there is no evidence of dissection either. Limited proximal right ICA stenosis appreciated at its origin with a lengthy Wallstent identified contiguously from the distal right common carotid artery through the proximal right ICA. External Carotid arteries: Appear unremarkable bilaterally. Vertebral arteries: The bilateral vertebral arteries appear normal in caliber from their origins to their distal cervical segments. No significant stenosis or definite pattern of dissection. ANEURYSM/ VASCULAR MALFORMATIONS: None. OTHER FINDINGS: None. IMPRESSION: CT angiography of the head and neck fails demonstrate occlusion or significant stenosis. Atherosclerotic bilateral cavernous internal carotid arteries are widely patent nevertheless a [id number] right carotid bulbar and mild left carotid bulbar atherosclerotic plaque is appreciated which are also patent. A lengthy Wallstent is identified at the distal right CCA and proximal right ICA with limited origin stenosis right ICA appreciated. Concordant preliminary report from [facility], 09/21/2018, 10:36 p.m..
[2018-09-22] MEDS: Sodium Chloride 0.9% 1,000 ML IV SCH (08:39)
--- NOTE | 2018-09-22 08:49 | RAD ---
Date of service: 09/21/2018 HISTORY: Code Stroke COMPARISON: Portable chest 10/19/2016. TECHNIQUE: 1 view obtained. FINDINGS: LUNGS: History volume appears diminished in the interval. No definitive infiltrate identified bilaterally nevertheless. Crowding of the bronchovascular markings is suggested at the bases bilaterally. PLEURA: No significant pleural effusion identified, no pneumothorax apparent. CARDIOVASCULAR: No aortic atherosclerotic calcification present. Prominent appearing cardiac silhouette noted. No definite pulmonary vascular congestion. No pulmonary vascular congestion. OSSEOUS STRUCTURES: Sternotomy wires reiterated. VISUALIZED UPPER ABDOMEN: Prior nasogastric tube removed. OTHER FINDINGS: None. IMPRESSION: Diminished inspiratory volume. No definite infiltrate, pleural effusion or pneumothorax. No pulmonary vascular congestion. Prominent cardiac silhouette identified. No definite pulmonary vascular congestion.
--- NOTE | 2018-09-22 09:18 | CARD ---
APPROVED REPORT Date of service: 09/21/2018 EKG Measurement Heart [id number] <Conclusion> Sinus rhythm with premature atrial complexes Cannot rule out small or absent R waves V1-V3, may be due to lead placement or possible septal infarct age undetermined. Abnormal ECG
--- NOTE | 2018-09-22 11:08 | CP.PCM.HP ---
<DinoAguilar - Last Filed: 09/22/18 10:54> History of Present Illness - History of Present Illness History of Present Illness: H&P for Dr. Lyons CC: aphasia, rt sided weakness, facial droop HPI: 68 F with a PMHx of multiple TIAs, HTN, DM2 with neuropathy, HLD, CAD s/p CABG on dual anti-platelet medications presented to the ED with family with reports of sudden episode of AMS with associated aphasia, not following commands or speaking. Constellation of symptoms appeared roughly an hour prior to arrival with a NIH of 14 in the ED. Patient's symptoms fortunately abated, and patient was mentating at baseline and moving all extremities, therfore not a candidate for tPA. Patient was seen and examined at bedside. Patient states that she has been experiencing some burning with urination and confusion. Patient otherwise endorses no other acute complaints. Patient denied, fevers, shortness of breath, chest pains, abdominal pains, nausea, vomiting, diarrhea, constipation or headaches. PMHx: multiple TIAs, HTN, DM2, HLD, GERD, OA, CAD s/p CABG PSHx: CABG, Left BKA, Cataracts, colonic polyps SHx: Denied tobacco/etoh/illicit substances FamHx: NC Meds: atorvastatin 10mg HS plavix 75 mg BID Lexapro 10mg Daily glipizide 10 mg BID metformin 1000 mg BID Xanax 0.25 mg HS Colace 100 mg Daily Present on Admission - Present on Admission Any Indicators Present on Admission: No Past Patient History - Infectious Disease Hx of Infectious Diseases: None - Tetanus Immunizations Tetanus Immunization: Unknown - Past Medical History & Family History Past Family History: Reviewed and not pertinent - Past Social History Smoking Status: Never Smoked - CARDIAC Hx Cardiac Disorders: Yes Hx Hypertension: Yes - PULMONARY Hx Respiratory Disorders: No - NEUROLOGICAL HX Cerebrovascular Accident: Yes - HEENT Hx HEENT Problems: Yes Hx Cataracts: Yes Other/Comment: eyeglasses - RENAL Hx Chronic Kidney Disease: Yes - ENDOCRINE/METABOLIC Hx Diabetes Mellitus Type 2: Yes - HEMATOLOGICAL/ONCOLOGICAL Hx Blood Disorders: Yes Hx Anemia: Yes Hx Shingles: Yes (3 years ago) Other/Comment: had chickenpox as a child - INTEGUMENTARY Hx Dermatological Problems: No - MUSCULOSKELETAL/RHEUMATOLOGICAL Hx Arthritis: Yes - GASTROINTESTINAL Hx Gastrointestinal Disorders: Yes Hx Gastroesophageal Reflux: Yes Other/Comment: gastritis,colon polyps - GENITOURINARY/GYNECOLOGICAL Hx Genitourinary Disorders: No - PSYCHIATRIC Hx Psychophysiologic Disorder: Yes Hx Anxiety: Yes Hx Depression: Yes Hx Emotional Abuse: No Hx Physical Abuse: No Hx Substance Use: No - SURGICAL HISTORY Hx Amputation: Yes Hx Open Heart Surgery: Yes (CABG) Hx Orthopedic Surgery: Yes (L BKA) - ANESTHESIA Hx Anesthesia Reactions: No Hx Malignant Hyperthermia: No Meds Allergies/Adverse Reactions: Allergies Allergy/AdvReac Type Severity Reaction Status Date / Time No Known Allergies Allergy Verified 09/21/18 20:37 Physical Exam - Constitutional Appears: Well, No Acute Distress - Head Exam Head Exam: ATRAUMATIC, NORMAL INSPECTION, NORMOCEPHALIC - Eye Exam Eye Exam: EOMI, Normal appearance, PERRL Pupil Exam: NORMAL ACCOMODATION, PERRL - ENT Exam ENT Exam: Mucous Membranes Moist, Normal Exam - Respiratory Exam Respiratory Exam: Clear to Auscultation Bilateral, NORMAL BREATHING PATTERN - Cardiovascular Exam Cardiovascular Exam: REGULAR RHYTHM, +S1, +S2 - GI/Abdominal Exam GI & Abdominal Exam: Normal Bowel Sounds, Soft. absent: Tenderness - Neurological Exam Neurological exam: Alert, CN II-XII Intact, Normal Gait, Reflexes Normal Additional comments: AAOx 2 - Psychiatric Exam Psychiatric exam: Normal Affect, Normal Mood - Skin Skin Exam: Dry, Intact, Normal Color, Warm Results - Vital Signs Recent Vital Signs: Last Vital Signs Temp 98.2 F 09/22/18 05:44 Pulse 70 09/22/18 05:44 Resp 19 09/22/18 05:44 BP 128/62 09/22/18 05:44 Pulse Ox 96 09/22/18 00:10 - Labs Result Diagrams: 09/21/18 20:50 09/21/18 20:50 Labs: Laboratory Results - last 24 hr 09/21/18 09/21/18 09/21/18 20:50 20:50 20:50 WBC 9.6 RBC 4.06 Hgb 11.6 L Hct 36.0 MCV 88.7 D MCH 28.6 MCHC 32.2 RDW 14.4 Plt Count 233 MPV 10.8 Neut % (Auto) 63.0 Lymph % (Auto) 29.1 Dolores % (Auto) 5.5 Eos % (Auto) 2.2 Baso % (Auto) 0.2 Lymph # (Auto) 2.8 Dolores # (Auto) 0.5 Eos # (Auto) 0.2 Baso # (Auto) 0.02 Absolute Neuts (auto) 6.05 PT 11.8 INR 1.06 APTT 29.2 Sodium 137 Potassium 4.6 Chloride 97 L Carbon Dioxide 26 Anion Gap 19 BUN 18 Creatinine 0.7 Est GFR ( Amer) > 60 Est GFR (Non-Af Amer) > 60 POC Glucose (mg/dL) Random Glucose 184 H Calcium 9.4 Total Bilirubin 0.6 AST 38 H D ALT 19 Alkaline Phosphatase 48 Troponin I < 0.01 D Total Protein 7.7 Albumin 4.3 Globulin 3.4 Albumin/Globulin Ratio 1.2 Triglycerides 279 H Cholesterol 144 LDL Cholesterol Direct 86 HDL Cholesterol 34 Blood Type Antibody Screen BBK History Checked 09/21/18 09/22/18 22:19 07:32 WBC RBC Hgb Hct MCV MCH MCHC RDW Plt Count MPV Neut % (Auto) Lymph % (Auto) Dolores % (Auto) Eos % (Auto) Baso % (Auto) Lymph # (Auto) Dolores # (Auto) Eos # (Auto) Baso # (Auto) Absolute Neuts (auto) PT INR APTT Sodium Potassium Chloride Carbon Dioxide Anion Gap BUN Creatinine Est GFR ( Amer) Est GFR (Non-Af Amer) POC Glucose (mg/dL) 103 Random Glucose Calcium Total Bilirubin AST ALT Alkaline Phosphatase Troponin I Total Protein Albumin Globulin Albumin/Globulin Ratio Triglycerides Cholesterol LDL Cholesterol Direct HDL Cholesterol Blood Type A POSITIVE Antibody Screen Negative BBK History Checked Patient has bt Assessment & Plan - Assessment and Plan (Free Text) Assessment: TIA vs CVA, resolving Right Sided weakness(MCA syndrome) dysuria aphasia resolved HTN HLD DM2 with neuropathy CAD s/p CABG L BKA Depression Anxiety Anemia Constipation Plan: Patient is comfortable. CTH reviewed, no bleeds or acute intracranial pathology. CTA head and neck reviewed, negative for any occlusions or stenosis. Dr. Luz neurohospitalist following, EEG ordered, recommend MRI w/o and Echo with bubble study for further evaluation. We will get a UA/UCx to workup dysuria. Patient is for PT s/p TIA, continue dual anti-platelet therapy with aspirin and plavix for hx of CVA and CAD. Patient is to continue atorvastatin for dyslipidemia. Glipizide and low ISS for DM2. Will followup with iron studies for anemia, Vitals have been stable, however will allow for permissive HTN. Patient for PT today, has hx of L BKA. Patient is for speech and swallow eval as well. Will continue lexapro for depression and colace for constipation. <Eloy,Hammad S - Last Filed: 09/22/18 12:51> Results - Vital Signs Recent Vital Signs: Last Vital Signs Temp 98.3 F 09/22/18 12:00 Pulse 71 09/22/18 12:00 Resp 20 09/22/18 12:00 BP 125/53 L 09/22/18 12:00 Pulse Ox 96 09/22/18 00:10 - Labs Result Diagrams: 09/22/18 11:00 09/22/18 11:00 Labs: Laboratory Results - last 24 hr 09/21/18 09/21/18 09/21/18 20:50 20:50 20:50 WBC 9.6 RBC 4.06 Hgb 11.6 L Hct 36.0 MCV 88.7 D MCH 28.6 MCHC 32.2 RDW 14.4 Plt Count 233 MPV 10.8 Neut % (Auto) 63.0 Lymph % (Auto) 29.1 Dolores % (Auto) 5.5 Eos % (Auto) 2.2 Baso % (Auto) 0.2 Lymph # (Auto) 2.8 Dolores # (Auto) 0.5 Eos # (Auto) 0.2 Baso # (Auto) 0.02 Absolute Neuts (auto) 6.05 PT 11.8 INR 1.06 APTT 29.2 Sodium 137 Potassium 4.6 Chloride 97 L Carbon Dioxide 26 Anion Gap 19 BUN 18 Creatinine 0.7 Est GFR ( Amer) > 60 Est GFR (Non-Af Amer) > 60 POC Glucose (mg/dL) Random Glucose 184 H Hemoglobin A1c Calcium 9.4 Phosphorus Magnesium Total Bilirubin 0.6 AST 38 H D ALT 19 Alkaline Phosphatase 48 Troponin I < 0.01 D Total Protein 7.7 Albumin 4.3 Globulin 3.4 Albumin/Globulin Ratio 1.2 Triglycerides 279 H Cholesterol 144 LDL Cholesterol Direct 86 HDL Cholesterol 34 TSH 3rd Generation Blood Type Antibody Screen BBK History Checked 09/21/18 09/21/18 09/22/18 20:50 22:19 07:32 WBC RBC Hgb Hct MCV MCH MCHC RDW Plt Count MPV Neut % (Auto) Lymph % (Auto) Dolores % (Auto) Eos % (Auto) Baso % (Auto) Lymph # (Auto) Dolores # (Auto) Eos # (Auto) Baso # (Auto) Absolute Neuts (auto) PT INR APTT Sodium Potassium Chloride Carbon Dioxide Anion Gap BUN Creatinine Est GFR ( Amer) Est GFR (Non-Af Amer) POC Glucose (mg/dL) 103 Random Glucose Hemoglobin A1c 9.0 H Calcium Phosphorus Magnesium Total Bilirubin AST ALT Alkaline Phosphatase Troponin I Total Protein Albumin Globulin Albumin/Globulin Ratio Triglycerides Cholesterol LDL Cholesterol Direct HDL Cholesterol TSH 3rd Generation Blood Type A POSITIVE Antibody Screen Negative BBK History Checked Patient has bt 09/22/18 09/22/18 09/22/18 11:00 11:00 11:00 WBC 9.6 RBC 3.79 Hgb 10.7 L Hct 33.6 L MCV 88.7 MCH 28.2 MCHC 31.8 RDW 14.6 H Plt Count 217 MPV 10.8 Neut % (Auto) 75.1 H Lymph % (Auto) 18.8 L Dolores % (Auto) 4.5 Eos % (Auto) 1.4 L Baso % (Auto) 0.2 Lymph # (Auto) 1.8 Dolores # (Auto) 0.4 Eos # (Auto) 0.1 Baso # (Auto) 0.02 Absolute Neuts (auto) 7.20 H PT INR APTT Sodium 139 Potassium 4.3 Chloride 101 Carbon Dioxide 25 Anion Gap 18 BUN 12 Creatinine 0.6 L Est GFR ( Amer) > 60 Est GFR (Non-Af Amer) > 60 POC Glucose (mg/dL) Random Glucose 138 H Hemoglobin A1c Calcium 9.2 Phosphorus 4.2 Magnesium 1.4 L Total Bilirubin 0.8 AST 24 ALT 20 Alkaline Phosphatase 57 Troponin I Total Protein 7.0 Albumin 4.0 Globulin 3.0 Albumin/Globulin Ratio 1.3 Triglycerides Cholesterol LDL Cholesterol Direct HDL Cholesterol TSH 3rd Generation 1.04 Blood Type Antibody Screen BBK History Checked 09/22/18 11:43 WBC RBC Hgb Hct MCV MCH MCHC RDW Plt Count MPV Neut % (Auto) Lymph % (Auto) Dolores % (Auto) Eos % (Auto) Baso % (Auto) Lymph # (Auto) Dolores # (Auto) Eos # (Auto) Baso # (Auto) Absolute Neuts (auto) PT INR APTT Sodium Potassium Chloride Carbon Dioxide Anion Gap BUN Creatinine Est GFR ( Amer) Est GFR (Non-Af Amer) POC Glucose (mg/dL) 153 H Random Glucose Hemoglobin A1c Calcium Phosphorus Magnesium Total Bilirubin AST ALT Alkaline Phosphatase Troponin I Total Protein Albumin Globulin Albumin/Globulin Ratio Triglycerides Cholesterol LDL Cholesterol Direct HDL Cholesterol TSH 3rd Generation Blood Type Antibody Screen BBK History Checked Assessment & Plan - Assessment and Plan (Free Text) Assessment: Patient was seen and examined by me. I have reviewed the note of the medical imaging tech and have gone over the plan of care. I agree with the note. I have reviewed the medications and the last labs.
[2018-09-22 11:38] LABS: BASO # 0.02 K/mm3 (0.0-2.0); BASO % 0.2 % (0.0-3.0); EOS # 0.1 (0.0-0.7); EOS % 1.4 % (1.5-5.0); HEMOGLOBIN 10.7 g/dL (12.0-16.0); LYMPH # 1.8 (1.2-3.4); LYMPH % 18.8 % (22.0-35.0); MEAN CELL VOLUME 88.7 fl (80.0-105.0); MEAN CORPUSCULAR HEMOGLOBIN 28.2 pg (25.0-35.0); MEAN CORPUSCULAR HGB CONC 31.8 g/dl (31.0-37.0); MEAN PLATELET VOLUME 10.8 fl (7.0-11.0); MONO # 0.4 (0.1-0.6); MONO % 4.5 % (1.0-6.0); RBC 3.79 10^6/uL (3.5-6.1); RED CELL DISTRIBUTION WIDTH 14.6 % (11.5-14.5); WHITE BLOOD COUNT 9.6 10^3/uL (4.5-11.0)
--- NOTE | 2018-09-22 11:51 | CP.PCM.APN ---
Subjective - Date & Time of Evaluation Date of Evaluation: 09/22/18 Time of Evaluation: 09:30 - Subjective Subjective: pt seen and examined at bedside, pt in NAD, pt with present. pt denies sob or cp or pain, speaks mostly Ukrainian but answers appropriately Review of Systems - Review of Systems All systems: reviewed and no additional remarkable complaints except - Constitutional Constitutional: As Per HPI Objective - Vital Signs/Intake and Output Vital Signs (last 24 hours): Temp Pulse Resp BP Pulse Ox 98.2 F 70 19 128/62 96 09/22/18 05:44 09/22/18 05:44 09/22/18 05:44 09/22/18 05:44 09/22/18 00:10 Intake and Output: 09/22/18 09/22/18 06:59 18:59 Intake Total 120 Balance 120 - Medications Medications: Current Medications Atorvastatin Calcium (Lipitor) 20 mg PO HS [facility] Clopidogrel Bisulfate (Plavix) 75 mg PO DAILY [facility] Docusate Sodium (Colace) 100 mg PO DAILY [facility] Escitalopram Oxalate (Lexapro) 10 mg PO DAILY [facility] Last Admin: 09/22/18 09:23 Dose: 10 mg Glipizide (Glucotrol) 10 mg PO BID [facility] Last Admin: 09/22/18 09:12 Dose: Not Given Sodium Chloride (Sodium Chloride 0.9%) 1,000 mls @ 100 mls/hr IV .Q10H [facility] Last Admin: 09/22/18 08:39 Dose: Not Given Insulin Human Regular (Humulin R Low) 0 units SC [facility]; Protocol Last Admin: 09/22/18 07:57 Dose: Not Given - Labs Labs: 09/21/18 20:50 09/21/18 20:50 PT 11.8 SECONDS (9.4-12.5) 09/21/18 20:50 INR 1.06 09/21/18 20:50 APTT 29.2 Seconds (26.9-38.3) 09/21/18 20:50 - Constitutional Appears: Non-toxic, No Acute Distress - Head Exam Head Exam: NORMAL INSPECTION - Eye Exam Eye Exam: EOMI - Respiratory Exam Respiratory Exam: Clear to Ausculation Bilateral, NORMAL BREATHING PATTERN - Cardiovascular Exam Cardiovascular Exam: REGULAR RHYTHM, +S1, +S2 - GI/Abdominal Exam GI & Abdominal Exam: Soft, Normal Bowel Sounds - Extremities Exam Additional comments: left BKA , NVI distally to right LE - Neurological Exam Neurological Exam: Alert, Awake Additional comments: GIORDANO - Skin Skin Exam: Dry Assessment and Plan - Assessment and Plan (Free Text) Assessment: ITS Impressions Chest X-Ray 09/21/18 20:48 IMPRESSION: Diminished inspiratory volume. No definite infiltrate, pleural effusion or pneumothorax. No pulmonary vascular congestion. Prominent cardiac silhouette identified. No definite pulmonary vascular congestion. Head CT 09/21/18 20:48 IMPRESSION: No acute intracranial findings Head/Neck CTA 09/21/18 21:21 IMPRESSION: CT angiography of the head and neck fails demonstrate occlusion or significant stenosis. Atherosclerotic bilateral cavernous internal carotid arteries are widely patent nevertheless a [id number] right carotid bulbar and mild left carotid bulbar atherosclerotic plaque is appreciated which are also patent. A lengthy Wallstent is identified at the distal right CCA and proximal right ICA with limited origin stenosis right ICA appreciated. Concordant preliminary report from [facility], 09/21/2018, 10:36 p.m.. 68 yr old [place] woman with pmh sig for muliple TIA, htn, dm, left bka, cad/sp cabg, dementia who presentd with ams from baseline now undergoing neuro workup and evalaution. head ct and neck MRA noted. pt for EEG, UA/C&S will follow neuro recs pt discussed in IDT rounds BPCI/TIC - BPCIA/TIC Educated pt/family on BPCIA/CIR/Med to Bed Programs: N/A Flyers given, including [facility] Beneficiary letter: N/A Pt/family verbalized understanding & agreed to program: N/A
[2018-09-22 12:33] LABS: ALB/GLOB RATIO 1.3 (1.1-1.8); ALT/SGPT 20 U/L (7-56); AST/SGOT 24 U/L (14-36); BLOOD UREA NITROGEN 12 mg/dL (7-21); CALCIUM 9.2 mg/dL (8.4-10.5); GFR NON-AFRICAN AMERICAN > 60
[2018-09-22 14:03] LABS: PH,URINE 6.5 (4.7-8.0); URINE BILIRUBIN NEGATIVE (NEGATIVE); URINE BLOOD NEGATIVE (NEGATIVE); URINE GLUCOSE (UA) NEGATIVE (NEGATIVE); URINE LEUKOCYTE ESTERASE TRACE Leu/uL (NEGATIVE); URINE PROTEIN NEGATIVE mg/dL (<30 mg/dL); URINE UROBILINOGEN 0.2 E.U./dL (<1 E.U./dL)
[2018-09-22 14:09] LABS: URINE APPEARANCE CLEAR (CLEAR); URINE COLOR YELLOW (YELLOW)
[2018-09-22] MEDS ORDERED: cefTRIAXone 1 gm 1 GM/100 ML BAG IVPB ONE (14:18)
[2018-09-22 14:25] LABS: URINE WBC 0 - 2 /hpf (0-6)
--- NOTE | 2018-09-22 14:49 | HP ---
DATE OF EXAM: 09/22/2018 HISTORY OF PRESENT ILLNESS: The patient was seen and examined. I do agree with the note by the medical staff services coordinator. I was involved in the plan of care. The patient had a TIA and that has resolved. She was seen by neurology. No intervention was planned. The patient is on aspirin and Plavix, she is going to continue. She has coronary artery disease. She denies any chest pain. She is diabetic. She is going to be on Glipizide for her diabetes as well as insulin sliding scale. She is on Colace for constipation. She is on Lipitor, that I have increased to 20 mg for her dyslipidemia. She was given IV fluid. I will discontinue the patient's IV fluids. I will ask Dr. Hernandez for followup. She is also going to seen by physical therapy. She denies any pain. Dionicio Lyons MD
[2018-09-22 17:40] LABS: FOLATE > 20.0 ng/mL
[2018-09-22] MEDS ORDERED: Magnesium Sulfate 2 gm/50 ml 2 GM/50 ML BAG IVPB ONE (17:48)
[2018-09-22] MEDS ORDERED: Digoxin 500 mcg/2ml (0.5 mg/2ml) Inj IVP PRN (17:48)
[2018-09-22] MEDS ORDERED: Magnesium Oxide 400 mg Tab UD PO SCH (18:00)
[2018-09-22] MEDS: Metoprolol Succinate 25 mg XL Tab PO SCH (18:38)
--- NOTE | 2018-09-22 21:37 | CARD ---
APPROVED REPORT Date of service: 09/22/2018 EKG Measurement Heart [id number] <Conclusion> Atrial fibrillation Nonspecific T wave abnormality, probably digitalis effect Prolonged QT Abnormal ECG
--- NOTE | 2018-09-23 01:04 | CON ---
DATE: 09/22/2018 HISTORY OF PRESENT ILLNESS: This is 68-year-old female with past medical history of diabetes, hypertension, TIA, status post CABG and suddenly had a episode of altered mental status, could not speak and brought her to the emergency room for further evaluation. PAST MEDICAL HISTORY: TIA, hypertension, diabetes, status post CABG and status post left below-knee amputation. MEDICATIONS: Statin, Plavix, Lexapro, glipizide, metformin, Xanax and Colace. PHYSICAL EXAMINATION: VITAL SIGNS: Blood pressure 128/62. HEENT: Normocephalic and atraumatic. NECK: Supple. NEURO: Awake and oriented to self. Cranial nerve II through XII were tested. Pupil reactive. Spontaneous movements of the extremities noted except left below-knee amputation. Cerebellar gait deferred. LABORATORY DATA: WBC 9.6, hemoglobin 11.6, hematocrit 36 and platelet 233. Sodium 137, potassium 4.6, chloride 97, CO2 of 26, glucose 184, potassium , BUN 18 and creatinine 0.7. IMPRESSION AND PLAN: A 68-year-old female who came to hospital with confusion and unable to speak. CAT scan of the head negative. No stroke. Workup in progress. MRI and carotid Doppler. We will follow up. Fahad Hernandez MD
[2018-09-23 06:43] LABS: BASO # 0.03 K/mm3 (0.0-2.0); BASO % 0.2 % (0.0-3.0); EOS # 0.2 (0.0-0.7); HEMOGLOBIN 11.9 g/dL (12.0-16.0); LYMPH % 20.5 % (22.0-35.0); MEAN CORPUSCULAR HEMOGLOBIN 27.9 pg (25.0-35.0); MEAN CORPUSCULAR HGB CONC 31.7 g/dl (31.0-37.0); MONO # 0.7 (0.1-0.6); MONO % 4.8 % (1.0-6.0); RBC 4.26 10^6/uL (3.5-6.1); RED CELL DISTRIBUTION WIDTH 14.7 % (11.5-14.5); WHITE BLOOD COUNT 14.4 10^3/uL (4.5-11.0)
[2018-09-23 06:50] LABS: INR 1.14; PARTIAL THROMBOPLASTIN TIME 30.3 Seconds (26.9-38.3); PROTHROMBIN TIME 12.9 SECONDS (9.4-12.5)
[2018-09-23] MEDS ORDERED: Alum-Mag Hydrox-Simethicone Susp (30 mL) PO ONE (07:14)
[2018-09-23] MEDS ORDERED: Heparin25000 units/250ml 1/2NS 25,000 UNITS/250 ML BAG IV PRN (07:15)
[2018-09-23 07:20] LABS: ALB/GLOB RATIO 1.2 (1.1-1.8); ALBUMIN 4.2 g/dL (3.0-4.8); ALT/SGPT 20 U/L (7-56); AST/SGOT 32 U/L (14-36); BLOOD UREA NITROGEN 12 mg/dL (7-21); CALCIUM 9.2 mg/dL (8.4-10.5); GFR NON-AFRICAN AMERICAN > 60
[2018-09-23] MEDS: Metoprolol Succinate 25 mg XL Tab PO SCH (07:54)
--- NOTE | 2018-09-23 08:53 | CP.PCM.PN ---
<ArletteDeni - Last Filed: 09/23/18 08:42> Subjective - Date & Time of Evaluation Date of Evaluation: 09/23/18 Time of Evaluation: 08:00 - Subjective Subjective: Neurology progress note - Arlette PGY - 2 Patient seen and examined at bedside. Patient was seen earlier this morning, she was confused compared to the day before; however this resolved. I was called around 6:30PM that patient had converted to atrial fibrillation. I ordered a stat CT Head, Metoprolol, and a one time dose of PRN digoxin and order to call MD if patient should become hypotensive. At 11:40P I was called that the CT Head official read ws not back; From my read, I could not ascertain if there was a new ischemic stroke or not, so held off on anticoagulation. Will reassess in the morning. Objective - Vital Signs/Intake and Output Vital Signs (last 24 hours): Temp Pulse Resp BP Pulse Ox 98.1 F 85 20 111/52 L 94 L 09/23/18 05:50 09/23/18 07:54 09/23/18 05:50 09/23/18 05:50 09/23/18 05:50 Intake and Output: 09/23/18 09/23/18 06:59 18:59 Intake Total 870 Balance 870 - Medications Medications: Current Medications Alprazolam (Xanax) 0.5 mg PO BID PRN; Protocol PRN Reason: Anxiety Aspirin (Ecotrin) 81 mg PO DAILY [facility] Atorvastatin Calcium (Lipitor) 20 mg PO HS [facility] Last Admin: 09/22/18 23:02 Dose: Not Given Clopidogrel Bisulfate (Plavix) 75 mg PO DAILY [facility] Last Admin: 09/22/18 13:06 Dose: 75 mg Docusate Sodium (Colace) 100 mg PO DAILY [facility] Last Admin: 09/22/18 13:06 Dose: 100 mg Escitalopram Oxalate (Lexapro) 10 mg PO DAILY [facility] Last Admin: 09/22/18 09:23 Dose: 10 mg Glipizide (Glucotrol) 10 mg PO BID [facility] Last Admin: 09/22/18 18:38 Dose: 10 mg Heparin Sodium/Sodium Chloride (Heparin 88220 Units/250ml 1/2 Normal Saline) 25,000 units in 250 mls @ 8.513 mls/hr IV .Q24H PRN; Protocol PRN Reason: ADJUST RATE PER PROTOCOL Last Admin: 09/23/18 07:52 Dose: 12 units/kg/hr, 8.513 mls/hr Insulin Human Regular (Humulin R Low) 0 units SC ACHS [facility]; Protocol Last Admin: 09/22/18 23:01 Dose: Not Given Magnesium Oxide (Mag-Ox) 400 mg PO BID [facility] Last Admin: 09/22/18 18:00 Dose: Not Given Metoprolol Succinate (Toprol Xl) 25 mg PO BRK [facility] Last Admin: 09/23/18 07:54 Dose: 25 mg - Labs Labs: 09/23/18 06:10 09/23/18 06:10 PT 12.9 SECONDS (9.4-12.5) H 09/23/18 06:10 INR 1.14 09/23/18 06:10 APTT 30.3 Seconds (26.9-38.3) 09/23/18 06:10 - Constitutional Appears: Well - Head Exam Head Exam: ATRAUMATIC, NORMAL INSPECTION, NORMOCEPHALIC - Eye Exam Eye Exam: EOMI, Normal appearance, PERRL Pupil Exam: NORMAL ACCOMODATION, PERRL - ENT Exam ENT Exam: Mucous Membranes Moist, Normal Exam - Neck Exam Neck Exam: Full ROM, Normal Inspection. absent: Lymphadenopathy - Respiratory Exam Respiratory Exam: Clear to Ausculation Bilateral, NORMAL BREATHING PATTERN - Cardiovascular Exam Cardiovascular Exam: REGULAR RHYTHM, +S1, +S2. absent: Murmur - GI/Abdominal Exam GI & Abdominal Exam: Soft, Normal Bowel Sounds. absent: Tenderness - Extremities Exam Extremities Exam: Full ROM, Normal Capillary Refill, Normal Inspection. absent: Joint Swelling, Pedal Edema - Back Exam Back Exam: NORMAL INSPECTION - Neurological Exam Neurological Exam: Alert, Awake, CN II-XII Intact, Normal Gait, Oriented x3 - Psychiatric Exam Psychiatric exam: Normal Affect, Normal Mood - Skin Skin Exam: Dry, Intact, Normal Color, Warm Assessment and Plan - Assessment and Plan (Free Text) Assessment: 68 F with R sided weakness and dysphagia; converted to A-Fib in the evening; no signs of ischemic stroke on CT Plan: CTA of the head/neck: no significant stenosis; atherosclerotic vessels noted MRI Brain pending Echocardiogram with bubble study pending Fluids with NS at 100 mL/hr Can stop with permissive HTN if official rpt head CT shows no stroke Continue with ASA and plavix Check lipid panel, HbA1c, B12, folate, TSH, vitamin D levels - B12>1000; 22.1 Vit D; >20 Folate; TSH 1.04 PT/OT eval and treatment <Gasper Luz - Last Filed: 09/25/18 12:06> Objective - Vital Signs/Intake and Output Vital Signs (last 24 hours): Temp Pulse Resp BP Pulse Ox 98.1 F 87 20 145/70 96 09/25/18 06:00 09/25/18 08:13 09/25/18 06:00 09/25/18 08:13 09/24/18 06:00 Intake and Output: 09/25/18 09/25/18 06:59 18:59 Intake Total 120 Balance 120 - Medications Medications: Current Medications Albuterol/Ipratropium (Duoneb 3 Mg/0.5 Mg (3 Ml) Ud) 3 ml IH Q2H PRN PRN Reason: Shortness of Breath Alprazolam (Xanax) 0.25 mg PO TID [facility]; Protocol Stop: 10/01/18 18:01 Last Admin: 09/25/18 09:38 Dose: 0.25 mg Apixaban (Eliquis) 5 mg PO BID [facility]; Protocol Last Admin: 09/25/18 09:37 Dose: 5 mg Aspirin (Ecotrin) 81 mg PO DAILY [facility] Last Admin: 09/25/18 09:36 Dose: 81 mg Atorvastatin Calcium (Lipitor) 40 mg PO DIN [facility] Last Admin: 09/24/18 17:07 Dose: 40 mg Cefpodoxime Proxetil (Vantin) 200 mg PO Q12 [facility] Last Admin: 09/25/18 09:38 Dose: 200 mg Docusate Sodium (Colace) 100 mg PO DAILY [facility] Last Admin: 09/25/18 09:36 Dose: 100 mg Escitalopram Oxalate (Lexapro) 10 mg PO HS [facility] Last Admin: 09/24/18 21:42 Dose: 10 mg Glipizide (Glucotrol) 10 mg PO BID [facility] Last Admin: 09/25/18 09:37 Dose: 10 mg Insulin Human Regular (Humulin R Low) 0 units SC ACHS [facility]; Protocol Last Admin: 09/25/18 08:12 Dose: 3 units Magnesium Oxide (Mag-Ox) 400 mg PO BID [facility] Last Admin: 09/22/18 18:00 Dose: Not Given Metoprolol Succinate (Toprol Xl) 25 mg PO BRK [facility] Last Admin: 09/25/18 08:13 Dose: 25 mg Ondansetron HCl (Zofran Inj) 4 mg IVP Q4H PRN PRN Reason: Nausea/Vomiting Last Admin: 09/23/18 11:20 Dose: 4 mg Quetiapine Fumarate (Seroquel) 25 mg PO DAILY PRN; Protocol PRN Reason: agitation/psychosis/restlessne Last Admin: 09/24/18 13:24 Dose: 25 mg - Labs Labs: 09/25/18 08:28 09/25/18 08:28 PT 12.9 SECONDS (9.4-12.5) H 09/23/18 06:10 INR 1.14 09/23/18 06:10 APTT 29.3 Seconds (26.9-38.3) 09/25/18 08:15 Attending/Attestation - Attestation I have personally seen and examined this patient.: Yes I have fully participated in the care of the patient.: Yes I have reviewed all pertinent clinical information, including history, physical exam and plan: Yes Notes (Text): I agree with the assessment and plan. Will continue current management as outlined above.
--- NOTE | 2018-09-23 09:11 | CP.PCM.PN ---
<Aguilar Sun - Last Filed: 09/23/18 09:05> Subjective - Date & Time of Evaluation Date of Evaluation: 09/23/18 Time of Evaluation: 08:00 - Subjective Subjective: Progress Note for Dr. Lyons Patient seen and examined at bedside. Patient is agitated and altered. 1:1 sitter at bedside. ROS unobtainable. Objective - Vital Signs/Intake and Output Vital Signs (last 24 hours): Temp Pulse Resp BP Pulse Ox 98.1 F 85 20 111/52 L 94 L 09/23/18 05:50 09/23/18 07:54 09/23/18 05:50 09/23/18 05:50 09/23/18 05:50 Intake and Output: 09/23/18 09/23/18 06:59 18:59 Intake Total 870 Balance 870 - Medications Medications: Current Medications Alprazolam (Xanax) 0.5 mg PO BID PRN; Protocol PRN Reason: Anxiety Aspirin (Ecotrin) 81 mg PO DAILY [facility] Atorvastatin Calcium (Lipitor) 20 mg PO HS [facility] Last Admin: 09/22/18 23:02 Dose: Not Given Clopidogrel Bisulfate (Plavix) 75 mg PO DAILY [facility] Last Admin: 09/22/18 13:06 Dose: 75 mg Docusate Sodium (Colace) 100 mg PO DAILY [facility] Last Admin: 09/22/18 13:06 Dose: 100 mg Escitalopram Oxalate (Lexapro) 10 mg PO DAILY [facility] Last Admin: 09/22/18 09:23 Dose: 10 mg Glipizide (Glucotrol) 10 mg PO BID [facility] Last Admin: 09/22/18 18:38 Dose: 10 mg Heparin Sodium/Sodium Chloride (Heparin 99795 Units/250ml 1/2 Normal Saline) 25,000 units in 250 mls @ 8.513 mls/hr IV .Q24H PRN; Protocol PRN Reason: ADJUST RATE PER PROTOCOL Last Admin: 09/23/18 07:52 Dose: 12 units/kg/hr, 8.513 mls/hr Insulin Human Regular (Humulin R Low) 0 units SC ACHS [facility]; Protocol Last Admin: 09/22/18 23:01 Dose: Not Given Magnesium Oxide (Mag-Ox) 400 mg PO BID [facility] Last Admin: 09/22/18 18:00 Dose: Not Given Metoprolol Succinate (Toprol Xl) 25 mg PO MICHELLEK [facility] Last Admin: 09/23/18 07:54 Dose: 25 mg - Labs Labs: 09/23/18 06:10 09/23/18 06:10 PT 12.9 SECONDS (9.4-12.5) H 09/23/18 06:10 INR 1.14 09/23/18 06:10 APTT 30.3 Seconds (26.9-38.3) 09/23/18 06:10 - Constitutional Appears: Agitated, Chronically Ill - Head Exam Head Exam: ATRAUMATIC, NORMAL INSPECTION, NORMOCEPHALIC - Eye Exam Eye Exam: EOMI, Normal appearance, PERRL Pupil Exam: NORMAL ACCOMODATION, PERRL - ENT Exam ENT Exam: Mucous Membranes Moist - Respiratory Exam Respiratory Exam: Clear to Ausculation Bilateral, NORMAL BREATHING PATTERN - Cardiovascular Exam Cardiovascular Exam: Irregular Rhythm, +S1, +S2 - GI/Abdominal Exam GI & Abdominal Exam: Soft, Normal Bowel Sounds. absent: Tenderness - Neurological Exam Neurological Exam: Altered - Psychiatric Exam Psychiatric exam: Agitated - Skin Skin Exam: Dry, Intact, Normal Color, Warm Assessment and Plan - Assessment and Plan (Free Text) Assessment: AMS new onset afib Agitation Leukocytosis TIA vs CVA, resolving Right Sided weakness(MCA syndrome) dysuria aphasia resolved HTN HLD DM2 with neuropathy CAD s/p CABG L BKA Depression Anxiety Anemia Constipation Plan: Patient is comfortable. CTH reviewed, no bleeds or acute intracranial pathology. Heparin drip for new onset afib. Cardiology consulted, Dr. Ron. Appreciate further recommendation. CTA head and neck reviewed, negative for any occlusions or stenosis. Dr. Luz neurohospitalist following, EEG ordered, recommend MRI w/o and Echo with bubble study for further evaluation. Xanax resumed, consider benzo withdrawal vs delerium. UA reviewed. Cx pending Patient is for PT s/p TIA, continue dual anti-platelet therapy with aspirin and plavix for hx of CVA and CAD. Patient is to continue atorvastatin for dyslipidemia. Glipizide and low ISS for DM2. H&H stable. Leukocytosis, fu CXR, ucx. Pt has hx of L BKA with prosthesis.Psych consulted for agitation. 1:1 sitter maintained for patient safety. Will continue lexapro for depression and colace for constipation. <EloyDionicio S - Last Filed: 09/23/18 15:53> Objective - Vital Signs/Intake and Output Vital Signs (last 24 hours): Temp Pulse Resp BP Pulse Ox 98.3 F 99 H 20 110/64 94 L 09/23/18 12:00 09/23/18 14:00 09/23/18 12:00 09/23/18 12:00 09/23/18 05:50 Intake and Output: 09/23/18 09/23/18 06:59 18:59 Intake Total 870 Balance 870 - Medications Medications: Current Medications Alprazolam (Xanax) 0.25 mg PO TID PRN; Protocol PRN Reason: Anxiety/restlessness Aspirin (Ecotrin) 81 mg PO DAILY [facility] Last Admin: 09/23/18 09:46 Dose: 81 mg Atorvastatin Calcium (Lipitor) 20 mg PO HS [facility] Last Admin: 09/22/18 23:02 Dose: Not Given Clopidogrel Bisulfate (Plavix) 75 mg PO DAILY [facility] Last Admin: 09/23/18 09:46 Dose: 75 mg Docusate Sodium (Colace) 100 mg PO DAILY [facility] Last Admin: 09/23/18 09:45 Dose: 100 mg Escitalopram Oxalate (Lexapro) 10 mg PO HS [facility] Glipizide (Glucotrol) 10 mg PO BID [facility] Last Admin: 09/23/18 09:46 Dose: 10 mg Heparin Sodium/Sodium Chloride (Heparin 68509 Units/250ml 1/2 Normal Saline) 25,000 units in 250 mls @ 8.513 mls/hr IV .Q24H PRN; Protocol PRN Reason: ADJUST RATE PER PROTOCOL Last Admin: 09/23/18 07:52 Dose: 12 units/kg/hr, 8.513 mls/hr Ceftriaxone Sodium (Rocephin 1 Gram Ivpb) 1 gm in 100 mls @ 100 mls/hr IVPB DAILY [facility]; Protocol Insulin Human Regular (Humulin R Low) 0 units SC ACHS [facility]; Protocol Last Admin: 09/23/18 13:13 Dose: 3 units Magnesium Oxide (Mag-Ox) 400 mg PO BID [facility] Last Admin: 09/22/18 18:00 Dose: Not Given Metoprolol Succinate (Toprol Xl) 25 mg PO BRK [facility] Last Admin: 09/23/18 07:54 Dose: 25 mg Ondansetron HCl (Zofran Inj) 4 mg IVP Q4H PRN PRN Reason: Nausea/Vomiting Last Admin: 09/23/18 11:20 Dose: 4 mg Quetiapine Fumarate (Seroquel) 25 mg PO DAILY PRN; Protocol PRN Reason: agitation/psychosis/restlessne Last Admin: 09/23/18 13:46 Dose: 25 mg Quetiapine Fumarate (Seroquel) 25 mg PO DAILY PRN PRN Reason: AGITATION/PSYCHOSIS/RESTLESTNE - Labs Labs: 09/23/18 06:10 09/23/18 06:10 PT 12.9 SECONDS (9.4-12.5) H 09/23/18 06:10 INR 1.14 09/23/18 06:10 APTT 71.2 Seconds (26.9-38.3) H 09/23/18 14:00
--- NOTE | 2018-09-23 09:12 | CT ---
Date of service: 09/22/2018 PROCEDURE: CT HEAD WITHOUT CONTRAST. HISTORY: r/o ischemic stroke COMPARISON: None available. TECHNIQUE: Axial computed tomography images were obtained through the head/brain without intravenous contrast. Radiation dose: Total exam DLP = 892.18 mGy-cm. This CT exam was performed using one or more of the following dose reduction techniques: Automated exposure control, adjustment of the mA and/or kV according to patient size, and/or use of iterative reconstruction technique. FINDINGS: HEMORRHAGE: No intracranial hemorrhage. BRAIN: No mass effect or edema. There is white matter encephalomalacia in the right parietal lobe and left frontal lobe. Chronic microvascular changes are seen. There are no acute findings VENTRICLES: Unremarkable. No hydrocephalus. CALVARIUM: Unremarkable. PARANASAL SINUSES: Unremarkable as visualized. No significant inflammatory changes. MASTOID AIR CELLS: Unremarkable as visualized. No inflammatory changes. OTHER FINDINGS: The report concurs with the preliminary [facility] report IMPRESSION: There is white matter encephalomalacia in the right parietal lobe and left frontal lobe. Chronic microvascular changes are seen. There are no acute findings
[2018-09-23] MEDS: Insulin Reg-LOW-Coverage SC SCH ×4 (09:46→22:34)
--- NOTE | 2018-09-23 10:01 | PCM.VEEG ---
Video EEG - Procedure Start Date: 09/22/18 Start Time: 14:15 End Date: 09/23/18 End Time: 02:45 Technical Summary: DATA ACQUISITION: This was a multichannel inpatient video-EEG, a minimum of 22 channels were uti lized, performed in accordance with recommendations specified by the [place] [employer] (Lucretia Doss et al. ACNS Guideline 1: Minimum Technical Requirements for Performing Clinical Electroencephalography. Journal of Clinical Neurophysiology 2016;33:303-7). The 10-20 electrode placement system was utilized in accordance with guidelines detailed by the International Federation of Clinical Neurophysiology (Teodora Ruano et al. The Ten-Twenty Electrode System of the International Federation. Recommendations for the Practice of Clinical Neurophysiology: Guidelines of the International Federation of Clinical Physiology 1999; EEG Suppl. 52.). DATA REVIEW / SPIKE DETECTION / DIGITAL ANALYSIS: The entire EEG was scanned and reviewed. Synchronized audio and video recording were reviewed at the time of each alarm and whenever an abnormality or suspicious activity was noted. The entire recording was analyzed utilizing an automated digital spike and seizure analysis program and all automatic spike and seizure detections were manually reviewed. A compressed spectral array was displayed and reviewed alongside the raw EEG tracings. In addition, further analysis of the EEG was performed when abnormalities were identified, including montage changes, dipole source localization, and frequency band identification. This study was attended 24 hours per day. Patient pulled the electrodes and disconnected herself twice during the study. - Interpretation Description of the study: REASON FOR THE STUDY; 68 y/o woman with alter mental status, and concern for subclinical seizures. EEG Finding during wakefulness: During active states, the EEG was characterized by 10-15 Hz, 15-30 uV activity bilaterally in fronto-central regions, with slightly slower frequencies and variable amplitudes, intermittently seen in each frontal area. Resting wakefulness was characterized by an attenuated and asymmetric posterior dominant rhythm of 6.5 to 7.5 Hz, 30-50 uV, mostly evident on the right, which was reactive to eye opening and closing. Drowsiness was associated with slow roving eye movements, slowing and fragmentation of the posterior dominant rhythm, and bilateral 4-7 Hz, 40-70 uV theta activity, sometimes with a shifting predominance. Hyperventilation and photic stimulation were not performed. EEG Finding during sleep: Light sleep was recorded and was characterized by fronto-central slowing at 5-7 H, 50-125 uV, sharp central vertex waves, bilateral sleep spindles, and K- complexes; shifting asymmetries were evident, but typical sleep architecture was more evident on the left. Deeper stages of sleep were recorded and were characterized an increasing frequency of 1-4 Hz, 50-100 uV delta activity Interictal non-epileptiform abnormalities: None Interictal epileptiform abnormalities: None Ictal epileptiform abnormalities: None - Impression Impression: This is an abnormal video-EEG monitoring study due to the presence of 1. Mild diffuse background slowing. 2. No seizures were recorded. INTERPRETATION: The above mentioned findings are in keeping with a mild non specific diffuse disturbance of cortical activity, in keeping with a diffuse jameson matter dysfunction. These findings do not support a specific etiology.
--- NOTE | 2018-09-23 10:04 | CP.PCM.PCO ---
Physician Communication Note - Physician Communication Note Physician Communication Note: pt seen with video EEG in progress and sitter at bedside, pt confused. Additional Comments - Additional Comments Additional Comments: pt with IV heparin for new AFIB discuss plan with Dr Campos re: delirium/ dementia pt going for ECHO will follow clinical course
--- NOTE | 2018-09-23 10:45 | CARD ---
APPROVED REPORT Date of service: 09/23/2018 EKG Measurement Heart [id number] <Conclusion> Atrial fibrillation Nonspecific T wave abnormality, probably digitalis effect Abnormal ECG
--- NOTE | 2018-09-23 11:20 | RAD ---
Date of service: 09/23/2018 HISTORY: r/o infil COMPARISON: 09/21/2018 TECHNIQUE: 1 view obtained. FINDINGS: LUNGS: No active pulmonary disease. PLEURA: No significant pleural effusion identified, no pneumothorax apparent. CARDIOVASCULAR: No aortic atherosclerotic calcification present. Mild cardiomegaly no pulmonary vascular congestion. OSSEOUS STRUCTURES: Sternal wires VISUALIZED UPPER ABDOMEN: Normal. OTHER FINDINGS: None. IMPRESSION: No active disease.
--- NOTE | 2018-09-23 11:44 | CP.PCM.PCO ---
Addendum Addendum: 09/23/18 11:43 discussed with , will change seroquel 25mg bid to daily as needed for psychosis and restlessness. main concern TIA, dementia, h/o strokes.
--- NOTE | 2018-09-23 12:05 | CP.PCM.CON ---
History of Present Illness - History of Present Illness History of Present Illness: Palliative consult requested by Dr Alejandro Lyons Reason: Goals of care This is a 68 female history of multiple TIAs, HTN, DM2, HLD, CAD s/p CABG who presented to the ED on 09/21/18 with sudden episode of AMS associated aphasia.Family reports she was unable follow commands or speak. NIH of 14 in the ED. Patient's symptoms quickly improved upon arrival, family confirms she returned to baseline mentation. The patient stated that she had some burning with urination. She denied fevers, shortness of breath, chest pains, abdominal pains, nausea, vomiting, diarrhea, constipation or headaches. EKG: New A fib Chest x rays: No active disease Head CT:White matter encephalomalacia in right parietal and left frontal lobes. Chronic microvascular changes. No acute findings. CTA Head/Neck: No occlusion or significant stenosis. Wallstent in distal right CCA and proximal ICA Urine C/S: Gram negative rods, colony count less than 100,000 PMHx: multiple TIA's,dementia, HTN, DM2, HLD, GERD, OA, CAD s/p CABG PSHx: CABG, Left BKA, cataracts, colonic polyps Social History: Never smoker, no alcohol or substance abuse. Lives with spouse. Family History: Non contributory. Advance Care Planning: The patient does not have an Advanced Directive. Review of Systems: As per HPI, patient remains confused, unable to obtain 12 point ROS. Past Patient History - Infectious Disease Hx of Infectious Diseases: None - Tetanus Immunizations Tetanus Immunization: Unknown - Past Medical History & Family History Past Family History: Reviewed and not pertinent - Past Social History Smoking Status: Never Smoked - CARDIAC Hx Cardiac Disorders: Yes Hx Hypertension: Yes - PULMONARY Hx Respiratory Disorders: No - NEUROLOGICAL HX Cerebrovascular Accident: Yes - HEENT Hx HEENT Problems: Yes Hx Cataracts: Yes Other/Comment: eyeglasses - RENAL Hx Chronic Kidney Disease: Yes - ENDOCRINE/METABOLIC Hx Diabetes Mellitus Type 2: Yes - HEMATOLOGICAL/ONCOLOGICAL Hx Blood Disorders: Yes Hx Anemia: Yes Hx Shingles: Yes (3 years ago) Other/Comment: had chickenpox as a child - INTEGUMENTARY Hx Dermatological Problems: No - MUSCULOSKELETAL/RHEUMATOLOGICAL Hx Arthritis: Yes - GASTROINTESTINAL Hx Gastrointestinal Disorders: Yes Hx Gastroesophageal Reflux: Yes Other/Comment: gastritis,colon polyps - GENITOURINARY/GYNECOLOGICAL Hx Genitourinary Disorders: No - PSYCHIATRIC Hx Psychophysiologic Disorder: Yes Hx Anxiety: Yes Hx Depression: Yes Hx Emotional Abuse: No Hx Physical Abuse: No Hx Substance Use: No - SURGICAL HISTORY Hx Amputation: Yes Hx Open Heart Surgery: Yes (CABG) Hx Orthopedic Surgery: Yes (L BKA) - ANESTHESIA Hx Anesthesia Reactions: No Hx Malignant Hyperthermia: No Meds Allergies/Adverse Reactions: Allergies Allergy/AdvReac Type Severity Reaction Status Date / Time No Known Allergies Allergy Verified 09/21/18 20:37 - Medications Medications: Current Medications Alprazolam (Xanax) 0.25 mg PO TID PRN; Protocol PRN Reason: Anxiety/restlessness Aspirin (Ecotrin) 81 mg PO DAILY [facility] Last Admin: 09/23/18 09:46 Dose: 81 mg Atorvastatin Calcium (Lipitor) 20 mg PO HS [facility] Last Admin: 09/22/18 23:02 Dose: Not Given Clopidogrel Bisulfate (Plavix) 75 mg PO DAILY [facility] Last Admin: 09/23/18 09:46 Dose: 75 mg Docusate Sodium (Colace) 100 mg PO DAILY [facility] Last Admin: 09/23/18 09:45 Dose: 100 mg Escitalopram Oxalate (Lexapro) 10 mg PO [facility] Glipizide (Glucotrol) 10 mg PO BID [facility] Last Admin: 09/23/18 09:46 Dose: 10 mg Heparin Sodium/Sodium Chloride (Heparin 87592 Units/250ml 1/2 Normal Saline) 25,000 units in 250 mls @ 8.513 mls/hr IV .Q24H PRN; Protocol PRN Reason: ADJUST RATE PER PROTOCOL Last Admin: 09/23/18 07:52 Dose: 12 units/kg/hr, 8.513 mls/hr Insulin Human Regular (Humulin R Low) 0 units SC [facility]; Protocol Last Admin: 09/23/18 09:46 Dose: 3 units Magnesium Oxide (Mag-Ox) 400 mg PO BID [facility] Last Admin: 09/22/18 18:00 Dose: Not Given Metoprolol Succinate (Toprol Xl) 25 mg PO BRK [facility] Last Admin: 09/23/18 07:54 Dose: 25 mg Ondansetron HCl (Zofran Inj) 4 mg IVP Q4H PRN PRN Reason: Nausea/Vomiting Last Admin: 09/23/18 11:20 Dose: 4 mg Quetiapine Fumarate (Seroquel) 25 mg PO DAILY PRN; Protocol PRN Reason: agitation/psychosis/restlessne Quetiapine Fumarate (Seroquel) 25 mg PO DAILY PRN PRN Reason: AGITATION/PSYCHOSIS/RESTLESTNE Physical Exam - Constitutional Appears: No Acute Distress, Chronically Ill - Head Exam Head Exam: NORMOCEPHALIC - Eye Exam Eye Exam: Normal appearance, PERRL - ENT Exam ENT Exam: Mucous Membranes Moist - Respiratory Exam Respiratory Exam: Clear to Auscultation Bilateral, NORMAL BREATHING PATTERN - Cardiovascular Exam Cardiovascular Exam: REGULAR RHYTHM, +S1, +S2 - GI/Abdominal Exam GI & Abdominal Exam: Normal Bowel Sounds, Soft Additional comments: no tenderness - Extremities Exam Extremities exam: Positive for: pedal pulses present Additional comments: Left BKA - Back Exam Back exam: NORMAL INSPECTION - Neurological Exam Neurological exam: Altered - Psychiatric Exam Psychiatric exam: Anxious - Skin Skin Exam: Dry, Pallor, Warm - Additional Findings Additional findings: Palliative performance scale rating 40% Results - Vital Signs Recent Vital Signs: Last Vital Signs Temp 98.1 F 09/23/18 05:50 Pulse 85 09/23/18 07:54 Resp 20 09/23/18 05:50 BP 111/52 L 09/23/18 05:50 Pulse Ox 94 L 09/23/18 05:50 - Labs Result Diagrams: 09/24/18 08:00 09/24/18 08:00 Labs: Laboratory Results - last 24 hr 09/22/18 09/22/18 09/22/18 11:00 11:00 11:00 WBC RBC Hgb Hct MCV MCH MCHC RDW Plt Count MPV Neut % (Auto) Lymph % (Auto) [place] % (Auto) Eos % (Auto) Baso % (Auto) Lymph # (Auto) [place] # (Auto) Eos # (Auto) Baso # (Auto) Absolute Neuts (auto) PT INR APTT Sodium Potassium Chloride Carbon Dioxide Anion Gap BUN Creatinine Est GFR ( Amer) Est GFR (Non-Af Amer) POC Glucose (mg/dL) Random Glucose Calcium Phosphorus Magnesium Total Bilirubin AST ALT Alkaline Phosphatase Total Protein Albumin Globulin Albumin/Globulin Ratio Vitamin B12 > 1000 H 25-OH Vitamin D Total 22.1 L Folate > 20.0 TSH 3rd Generation 1.04 Urine Color Urine Appearance Urine pH Ur Specific [place] Urine Protein Urine Glucose (UA) Urine Ketones Urine Blood Urine Nitrate Urine Bilirubin Urine Urobilinogen Ur Leukocyte Esterase Urine RBC Urine WBC Ur Epithelial Cells 09/22/18 09/22/18 09/22/18 11:00 11:00 13:20 WBC RBC Hgb Hct MCV MCH MCHC RDW Plt Count MPV Neut % (Auto) Lymph % (Auto) [place] % (Auto) Eos % (Auto) Baso % (Auto) Lymph # (Auto) [place] # (Auto) Eos # (Auto) Baso # (Auto) Absolute Neuts (auto) PT INR APTT Sodium 139 Potassium 4.3 Chloride 101 Carbon Dioxide 25 Anion Gap 18 BUN 12 Creatinine 0.6 L Est GFR ( Amer) > 60 Est GFR (Non-Af Amer) > 60 POC Glucose (mg/dL) Random Glucose 138 H Calcium 9.2 Phosphorus 4.2 Magnesium 1.4 L Total Bilirubin 0.8 AST 24 ALT 20 Alkaline Phosphatase 57 Total Protein 7.0 Albumin 4.0 Globulin 3.0 Albumin/Globulin Ratio 1.3 Vitamin B12 25-OH Vitamin D Total 21 L Folate TSH 3rd Generation Urine Color Yellow Urine Appearance Clear Urine pH 6.5 Ur Specific [place] 1.010 Urine Protein Negative Urine Glucose (UA) Negative Urine Ketones Negative Urine Blood Negative Urine Nitrate Negative Urine Bilirubin Negative Urine Urobilinogen 0.2 Ur Leukocyte Esterase Trace H Urine RBC None Urine WBC 0 - 2 Ur Epithelial Cells 1 - 3 09/22/18 09/22/18 09/23/18 16:37 21:33 06:10 WBC 14.4 H D RBC 4.26 Hgb 11.9 L Hct 37.5 MCV 88.0 MCH 27.9 MCHC 31.7 RDW 14.7 H Plt Count 295 MPV 11.0 Neut % (Auto) 73.5 H Lymph % (Auto) 20.5 L [place] % (Auto) 4.8 Eos % (Auto) 1.0 L Baso % (Auto) 0.2 Lymph # (Auto) 3.0 [place] # (Auto) 0.7 H Eos # (Auto) 0.2 Baso # (Auto) 0.03 Absolute Neuts (auto) 10.60 H PT INR APTT Sodium Potassium Chloride Carbon Dioxide Anion Gap BUN Creatinine Est GFR ( Amer) Est GFR (Non-Af Amer) POC Glucose (mg/dL) 248 H 231 H Random Glucose Calcium Phosphorus Magnesium Total Bilirubin AST ALT Alkaline Phosphatase Total Protein Albumin Globulin Albumin/Globulin Ratio Vitamin B12 25-OH Vitamin D Total Folate TSH 3rd Generation Urine Color Urine Appearance Urine pH Ur Specific [place] Urine Protein Urine Glucose (UA) Urine Ketones Urine Blood Urine Nitrate Urine Bilirubin Urine Urobilinogen Ur Leukocyte Esterase Urine RBC Urine WBC Ur Epithelial Cells 09/23/18 09/23/18 09/23/18 06:10 06:10 07:50 WBC RBC Hgb Hct MCV MCH MCHC RDW Plt Count MPV Neut % (Auto) Lymph % (Auto) [place] % (Auto) Eos % (Auto) Baso % (Auto) Lymph # (Auto) [place] # (Auto) Eos # (Auto) Baso # (Auto) Absolute Neuts (auto) PT 12.9 H INR 1.14 APTT 30.3 Sodium 139 Potassium 4.1 Chloride 98 Carbon Dioxide 30 Anion Gap 15 BUN 12 Creatinine 0.7 Est GFR ( Amer) > 60 Est GFR (Non-Af Amer) > 60 POC Glucose (mg/dL) 255 H Random Glucose 190 H Calcium 9.2 Phosphorus 4.2 Magnesium 1.9 Total Bilirubin 0.6 AST 32 ALT 20 Alkaline Phosphatase 57 Total Protein 7.7 Albumin 4.2 Globulin 3.4 Albumin/Globulin Ratio 1.2 Vitamin B12 25-OH Vitamin D Total Folate TSH 3rd Generation Urine Color Urine Appearance Urine pH Ur Specific [place] Urine Protein Urine Glucose (UA) Urine Ketones Urine Blood Urine Nitrate Urine Bilirubin Urine Urobilinogen Ur Leukocyte Esterase Urine RBC Urine WBC Ur Epithelial Cells Assessment & Plan - Assessment and Plan (Free Text) Assessment: 68 year old female with history of multiple TIA's,dementia, HTN, DM2, HLD, GERD, CAD s/p CABG who is admitted with AMS, right sided weakness, new A fib The patient is alert, confused. Speak mostly in [place]. Patient's , sister in law and daughter Hannah at bedside Goals of care and advance care planning disease. Ramifications of CPR/ intubation explained. Patient's defers to his daughters for decision making. Hannah states that she wants her sister involved in this conversation. Sister expected later this afternoon. Will defer conversation till then Patients family did not return to room or contact me regarding follow up meeting in afternoon as was planned Goals of care discussion, 20 minutes Plan: Goals of care and advance care planning Neurology following, EEG mild diffuse slowing, no seizures. MRI and and Echo with bubble study pending. Cardiology/New A Fib Continue Heparin, ASA, Plavix, Toprol. DM: Fingersticks ACHS, Glucotrol and Insulin coverage as ordered. Lexapro,Seroquel as ordered
[2018-09-23] MEDS: cefTRIAXone 1 gm 1 GM/100 ML BAG IVPB SCH (13:13)
--- NOTE | 2018-09-23 14:14 | CON ---
DATE: 09/23/2018 CARDIOLOGY CONSULT. REASON FOR CONSULTATION: Cardiac evaluation, new onset of atrial fibrillation. BRIEF CLINICAL HISTORY: This is a 68-year-old female with past medical history significant for TIA, dementia, diabetes, history of CABG many years ago, on Plavix and aspirin, presented to the emergency department with TIA type of symptoms. Denies any chest pain and shortness of breath. Yesterday, while the patient was in shelter monitor, went into AFib. Initially, the read was high, now the rate is well controlled. Past history significant for coronary artery disease, CABG many years ago, history of TIA, hypertension, hyperlipidemia and possibly dementia. The patient is confused and now is on one-to-one observation. PAST MEDICAL HISTORY: Significant for diabetes, hypertension, hypertension and hyperlipidemia. PAST SURGICAL HISTORY: Significant for coronary artery disease many years ago, history of amputation of below knee. FAMILY HISTORY: Noncontributory. ALLERGIES: NO KNOWN DRUG ALLERGIES. SOCIAL HISTORY: Denies any smoking. Denies any history of alcohol abuse. CURRENT MEDICATIONS: The patient at home was taking glipizide 10 mg daily, Lexapro, Colace, clopidogrel, atorvastatin, nystatin and Xanax. REVIEW OF SYSTEMS: As per HPI. PHYSICAL EXAMINATION: VITAL SIGNS: Height of the patient 5 feet 2 inches and weight of the patient 156 pound. Body mass index 28.6 kg/m2. Rest of the vitals; temperature afebrile, heart rate 82 and blood pressure 111/52. HEENT: PERRLA. Extraocular muscles intact. NECK: Supple. No carotid bruit. No thyromegaly. CHEST: Clear to auscultation. HEART: S1 and S2, regular. ABDOMEN: Soft. EXTREMITIES: Clubbing and cyanosis, negative. LABORATORY DATA: Blood work up as follows; WBC 14.5, hemoglobin 11.9, hematocrit 37.5 and platelet count 295. Chemistry shows sodium 139, potassium 4.0, chloride 98, carbon dioxide 30, anion gap of 15, BUN 12, creatinine 0.7 and troponin on admission 0.01. EKG on admission shows normal sinus, repeat EKG the patient went into AFib and the patient is now in AFib. IMPRESSION: A 68-year-old female with past medical history diabetes, hypertension, hyperlipidemia, coronary artery disease, status post coronary artery bypass grafting, peripheral arterial disease, status post left below knee amputation admitted with transient ischemic attack type of symptoms. The patient went into atrial fibrillation. RECOMMENDATIONS: We will get lipid profile, TSH, hemoglobin A1C. Continue heparin for now. We will get echo and then probably switch over to Eliquis. Further recommendations depending on the hospital course. We will follow with you. The patient came in with aspirin and Plavix and history of TIA in the past. If the patient has breakthrough TIA type of symptoms while the patient was in Plavix, will switch over to Eliquis. Initial CAT scan shows no acute intracranial findings. Repeat CAT scan done yesterday report official pending. Repeat EKG done this morning shows the patient is on AFib. Admitting EKG, the patient was in normal sinus. Thank you Dr. Lyons for providing us the opportunity in taking care of the patient Camron Awan. Alfred Ron MD
--- NOTE | 2018-09-23 17:55 | MRI ---
Date of service: 09/23/2018 PROCEDURE: MRI BRAIN WITHOUT CONTRAST HISTORY: r/o cva COMPARISON: CT head without contrast from 09/22/2018 TECHNIQUE: Multiplanar, multisequence MR images of the brain were obtained without intravenous contrast enhancement. FINDINGS: HEMORRHAGE: None DWI: There is a small round focus diffusion hyperintensity in the left posterior temporal subcortical white matter. However no correlating abnormality is identified on sagittal apparent diffusion coefficient images although the scan is technically limited due to lack of axial acquisition of apparent diffusion coefficient images. BRAIN PARENCHYMA: There are chronic infarctions in the right parietal and temporal lobes and left frontal lobes. There are moderate chronic microangiopathic changes. There is no mass, mass effect or abnormal extra-axial fluid collection. VENTRICLES: There is mild age-related global parenchymal volume loss and proportionate enlargement of the ventricles and cortical sulci. CRANIUM: There is normal bone marrow signal pattern. ORBITS: Grossly unremarkable. PARANASAL SINUSES/MASTOIDS: Clear VASCULAR SYSTEM: There are normal signal voids in the larger intracranial arteries. OTHER FINDINGS: None. IMPRESSION: 1. Suspect tiny focus of acute infarction in the left posterior temporal subcortical white matter. 2. 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 3. Moderate chronic microangiopathic changes and mild age-related global parenchymal volume loss.
--- NOTE | 2018-09-23 19:41 | CARD ---
APPROVED REPORT Date of service: 09/23/2018 EXAM: Two-dimensional and M-mode echocardiogram with Doppler and color Doppler. INDICATION TIA, PFO, BUBBLE STUDY 2D DIMENSIONS Left Atrium (2D)4.0 (1.6-4.0cm)IVSd1.6 (0.7-1.1cm) LVDd2.9 (3.9-5.9cm)PWd1.3 (0.7-1.1cm) M-Mode DIMENSIONS Aortic Root2.80 (2.2-3.7cm)Aortic Cusp Exc.1.60 (1.5-2.0cm) Aortic Valve AoV Peak Wzmcxnov765.0cm/Rohit Peak GR.4mmHg Mitral Valve E/A ratio0.0 TDI E/Lateral E'0.0E/Medial E'0.0 LEFT VENTRICLE The left ventricle is normal size. There is mild to moderate concentric left ventricular hypertrophy. Proximal septal thickening is noted. The left ventricular function is normal.EF-60-65% There is normal LV segmental wall motion. A fib No left ventricle thrombus noted on this study. There is no ventricular septal defect visualized. There is no left ventricular aneurysm. There is no mass noted in the left ventricle. RIGHT VENTRICLE The right ventricle is normal size. There is normal right ventricular wall thickness. The right ventricular systolic function is normal. ATRIA The left atrium is borderline dilated. The right atrium size is normal. The interatrial septum is intact with no evidence for an atrial septal defect. AORTIC VALVE The aortic valve is calcified and displays decreased opening. There is trace aortic regurgitation. There is mild valvular aortic stenosis Vs Aortic Sclerosis. There is no aortic valvular vegetation. MITRAL VALVE The mitral valve is thickened but opens well. Mitral annular calcification is mild to moderate. Mitral regurgitation is moderate. There is no mitral valve stenosis. There is no evidence of mitral valve prolapse. TRICUSPID VALVE The tricuspid valve leaflets are thickened , but open well. There is trace tricuspid regurgitation. There is no tricuspid valve stenosis. There is no tricuspid valve prolapse or vegetation. PULMONIC VALVE The pulmonary valve is normal in structure. There is trace pulmonic valvular regurgitation. There is no pulmonic valvular stenosis. GREAT VESSELS The aortic root is normal in size. The ascending aorta is normal in size. The pulmonary artery is normal. The IVC is normal in size and collapses >50% with inspiration. PERICARDIAL EFFUSION There is no pleural effusion. There is no pericardial effusion. <Conclusion> The left ventricle is normal size. There is mild to moderate concentric left ventricular hypertrophy. Proximal septal thickening is noted. The left ventricular function is normal.EF-60-65% There is trace aortic regurgitation. Mitral regurgitation is moderate. There is trace tricuspid regurgitation. The IVC is normal in size and collapses >50% with inspiration. There is no pericardial effusion.
--- NOTE | 2018-09-23 21:04 | CP.PCM.PN ---
<Deni Chong - Last Filed: 09/24/18 00:04> Subjective - Date & Time of Evaluation Date of Evaluation: 09/23/18 Time of Evaluation: 20:05 - Subjective Subjective: Neuro progress note - Arlette PGY - 2 Patient seen and examined at bedside. Patient went into A-Fib yesterday; was started on anti-coagulation this morning. Objective - Vital Signs/Intake and Output Vital Signs (last 24 hours): Temp Pulse Resp BP Pulse Ox 98.5 F 70 20 122/73 94 L 09/23/18 18:00 09/23/18 18:00 09/23/18 18:00 09/23/18 18:00 09/23/18 05:50 Intake and Output: 09/23/18 09/24/18 18:59 06:59 Intake Total 294 480 Balance 294 480 - Medications Medications: Current Medications Alprazolam (Xanax) 0.25 mg PO TID PRN; Protocol PRN Reason: Anxiety/restlessness Aspirin (Ecotrin) 81 mg PO DAILY [facility] Last Admin: 09/23/18 09:46 Dose: 81 mg Atorvastatin Calcium (Lipitor) 20 mg PO HS [facility] Last Admin: 09/22/18 23:02 Dose: Not Given Clopidogrel Bisulfate (Plavix) 75 mg PO DAILY [facility] Last Admin: 09/23/18 09:46 Dose: 75 mg Docusate Sodium (Colace) 100 mg PO DAILY [facility] Last Admin: 09/23/18 09:45 Dose: 100 mg Escitalopram Oxalate (Lexapro) 10 mg PO HS [facility] Glipizide (Glucotrol) 10 mg PO BID [facility] Last Admin: 09/23/18 09:46 Dose: 10 mg Heparin Sodium/Sodium Chloride (Heparin 81562 Units/250ml 1/2 Normal Saline) 25,000 units in 250 mls @ 8.513 mls/hr IV .Q24H PRN; Protocol PRN Reason: ADJUST RATE PER PROTOCOL Last Admin: 09/23/18 07:52 Dose: 12 units/kg/hr, 8.513 mls/hr Ceftriaxone Sodium (Rocephin 1 Gram Ivpb) 1 gm in 100 mls @ 100 mls/hr IVPB DAILY [facility]; Protocol Last Admin: 09/23/18 13:13 Dose: 100 mls/hr Insulin Human Regular (Humulin R Low) 0 units SC ACHS [facility]; Protocol Last Admin: 09/23/18 18:31 Dose: 2 units Magnesium Oxide (Mag-Ox) 400 mg PO BID [facility] Last Admin: 09/22/18 18:00 Dose: Not Given Metoprolol Succinate (Toprol Xl) 25 mg PO BRK [facility] Last Admin: 09/23/18 07:54 Dose: 25 mg Ondansetron HCl (Zofran Inj) 4 mg IVP Q4H PRN PRN Reason: Nausea/Vomiting Last Admin: 09/23/18 11:20 Dose: 4 mg Quetiapine Fumarate (Seroquel) 25 mg PO DAILY PRN; Protocol PRN Reason: agitation/psychosis/restlessne Last Admin: 09/23/18 13:46 Dose: 25 mg Quetiapine Fumarate (Seroquel) 25 mg PO DAILY PRN PRN Reason: AGITATION/PSYCHOSIS/RESTLESTNE - Labs Labs: 09/23/18 06:10 09/23/18 06:10 PT 12.9 SECONDS (9.4-12.5) H 09/23/18 06:10 INR 1.14 09/23/18 06:10 APTT 71.2 Seconds (26.9-38.3) H 09/23/18 14:00 - Constitutional Appears: Non-toxic - Head Exam Head Exam: ATRAUMATIC, NORMAL INSPECTION, NORMOCEPHALIC - Eye Exam Eye Exam: EOMI, Normal appearance, PERRL Pupil Exam: NORMAL ACCOMODATION, PERRL - ENT Exam ENT Exam: Mucous Membranes Moist, Normal Exam - Neck Exam Neck Exam: Full ROM, Normal Inspection. absent: Lymphadenopathy - Respiratory Exam Respiratory Exam: Clear to Ausculation Bilateral, NORMAL BREATHING PATTERN - Cardiovascular Exam Cardiovascular Exam: REGULAR RHYTHM, +S1, +S2. absent: Murmur - GI/Abdominal Exam GI & Abdominal Exam: Soft, Normal Bowel Sounds. absent: Tenderness - Extremities Exam Extremities Exam: Full ROM, Normal Capillary Refill, Normal Inspection. absent: Joint Swelling, Pedal Edema - Back Exam Back Exam: NORMAL INSPECTION - Neurological Exam Neurological Exam: Alert, Awake, CN II-XII Intact, Normal Gait, Oriented x3 - Psychiatric Exam Psychiatric exam: Normal Affect, Normal Mood - Skin Skin Exam: Dry, Intact, Normal Color, Warm Assessment and Plan - Assessment and Plan (Free Text) Assessment: 68 F with R sided weakness and dysphagia; converted to A-Fib in the evening; no signs of ischemic stroke on CT. Patient is getting acutely agitated from time to time. Plan: CTA of the head/neck: no significant stenosis; atherosclerotic vessels noted MRI Brain pending Echocardiogram with bubble study pending Fluids with NS at 100 mL/hr Can stop with permissive HTN Continue with ASA and plavix Check lipid panel, HbA1c, B12, folate, TSH, vitamin D levels - B12>1000; 22.1 Vit D; >20 Folate; TSH 1.04 PT/OT eval and treatment Patient can continue with her home antipsychotic <Gasper Luz - Last Filed: 09/25/18 12:07> Objective - Vital Signs/Intake and Output Vital Signs (last 24 hours): Temp Pulse Resp BP Pulse Ox 98.1 F 87 20 145/70 96 09/25/18 06:00 09/25/18 08:13 09/25/18 06:00 09/25/18 08:13 09/24/18 06:00 Intake and Output: 09/25/18 09/25/18 06:59 18:59 Intake Total 120 Balance 120 - Medications Medications: Current Medications Albuterol/Ipratropium (Duoneb 3 Mg/0.5 Mg (3 Ml) Ud) 3 ml IH Q2H PRN PRN Reason: Shortness of Breath Alprazolam (Xanax) 0.25 mg PO TID [facility]; Protocol Stop: 10/01/18 18:01 Last Admin: 09/25/18 09:38 Dose: 0.25 mg Apixaban (Eliquis) 5 mg PO BID [facility]; Protocol Last Admin: 09/25/18 09:37 Dose: 5 mg Aspirin (Ecotrin) 81 mg PO DAILY [facility] Last Admin: 09/25/18 09:36 Dose: 81 mg Atorvastatin Calcium (Lipitor) 40 mg PO DIN [facility] Last Admin: 09/24/18 17:07 Dose: 40 mg Cefpodoxime Proxetil (Vantin) 200 mg PO Q12 [facility] Last Admin: 09/25/18 09:38 Dose: 200 mg Docusate Sodium (Colace) 100 mg PO DAILY [facility] Last Admin: 09/25/18 09:36 Dose: 100 mg Escitalopram Oxalate (Lexapro) 10 mg PO HS [facility] Last Admin: 09/24/18 21:42 Dose: 10 mg Glipizide (Glucotrol) 10 mg PO BID [facility] Last Admin: 09/25/18 09:37 Dose: 10 mg Insulin Human Regular (Humulin R Low) 0 units SC ACHS [facility]; Protocol Last Admin: 09/25/18 12:04 Dose: 4 units Magnesium Oxide (Mag-Ox) 400 mg PO BID [facility] Last Admin: 09/22/18 18:00 Dose: Not Given Metoprolol Succinate (Toprol Xl) 25 mg PO BRK [facility] Last Admin: 09/25/18 08:13 Dose: 25 mg Ondansetron HCl (Zofran Inj) 4 mg IVP Q4H PRN PRN Reason: Nausea/Vomiting Last Admin: 09/23/18 11:20 Dose: 4 mg Quetiapine Fumarate (Seroquel) 25 mg PO DAILY PRN; Protocol PRN Reason: agitation/psychosis/restlessne Last Admin: 09/24/18 13:24 Dose: 25 mg - Labs Labs: 09/25/18 08:28 09/25/18 08:28 PT 12.9 SECONDS (9.4-12.5) H 09/23/18 06:10 INR 1.14 09/23/18 06:10 APTT 29.3 Seconds (26.9-38.3) 09/25/18 08:15 Attending/Attestation - Attestation I have personally seen and examined this patient.: Yes I have fully participated in the care of the patient.: Yes I have reviewed all pertinent clinical information, including history, physical exam and plan: Yes Notes (Text): I agree with the assessment and plan. Will continue current management as outlined above.
--- NOTE | 2018-09-23 21:50 | PN ---
DATE: 09/23/2018 HOSPITAL COURSE: The patient was seen and examined. I do agree with the note of the medical pathologist. I was involved in the plan of care. The patient had an MRI that showed focus of an acute infarct in the left posterior methodist subcortical white matter. There are chronic infarcts in the right parietal and temporal lobe and left frontal lobe. Patient is being followed by Sary Harris from Palliative care, and Dr. Aguiar. End-of-life discussions are ongoing. Patient is confused. She has atrial fibrillation which is of new onset. I did speak with Dr. Ron regarding the case from Cardiology. The patient is on Plavix and is on heparin for anticoagulation. This patient is on Seroquel by Psychiatry for the delirium that the patient has. There are risks in giving antipsychotics, but Psychiatry felt that the benefits outweigh the risks in this particular situation materially. The patient has been on Seroquel chronically. Dionicio Lyons MD
--- NOTE | 2018-09-23 22:00 | CON ---
DATE: 09/23/2018 HISTORY OF PRESENT ILLNESS: The patient is a 68-year-old female from [place]. The patient has history of dementia, TIA, diabetes, and CABG. The patient is on Plavix and aspirin. The patient was admitted on the medical site for evaluation of possible stroke and altered mental status. The patient was not able to express herself. Psych consult was called for evaluation of symptoms and periods of confusion and agitation. The patient was seen and examined. Based on the chart, the patient has power of compliance attorney and this is the patient's who is next to the patient. Also, the patient's daughter Hannah is power of compliance attorney based on the patient's report. The patient presented to be comfortable, seems to be in good mood, but appears to be confused, is not able to recognize her and this is not the patient's baseline. Based on reports from the , the patient was brought in on Friday because the patient all of a sudden became confused and was not able to express herself. Right now, this is not the patient's baseline because the patient was not able to recognize her and family members. As per history, the patient does not suffer from depression or anxiety. The patient does not suffer from any psychosis in the past. The patient was diagnosed with dementia about a year or year and half ago. This database report writer attempted to discuss treatment option with the patient's , but the patient's said that this database report writer needs to talk to Hannah, patient's daughter who is making decisions for the patient in regards of medical issues. Hannah (patient's daughter) was contacted [phone]. Based on the reports from Hannah, the patient suffered from dementia,has episodes of confusion and suspiciousness, but the patient has never been agitated or aggressive, never been psychotic and suspiciousness could be related to the hearing loss. Hannah mentioned that the patient fills her medication in [facility] here in [place] and based on information, the patient was on psychotropic medications but the patient's family does not remember what is the name. This database report writer contacted [facility] [phone]. Based on the report, the patient was on Seroquel 25 mg twice a day; prescriber is Dr. Victoria. The patient filled that medication on 09/07/2018. The patient was also on alprazolam 0.25 mg three times a day by Dr. Hayes. The patient filled this medication on 09/10/2018. The patient also was on Aricept 10 mg at the nighttime by Dr. Victoria. The patient filled that medication on 09/21/2018. The patient also was on Lexapro 10 mg. The patient filled that medication on 07/21/2018. The patient's daughter was in agreement to resume that medication and requested that medication to be resumed. The risks, benefits, and alternatives of the medication discussed with the patient's daughter, Hannah. She was appreciative. MEDICATIONS: Reviewed. The patient is on Xanax 0.25 mg twice a day, but the patient was on 2.25 mg three times a day. We will resume the dose and increase the frequency. The patient also is on aspirin, Lipitor, Plavix, Colace, and Lexapro 10 mg. We will change to the nighttime. The patient also is on glipizide, heparin, magnesium oxide, metoprolol, and ceftriaxone. LABORATORY DATA: Labs are reviewed. White blood cells elevated 14.0. Chemistry reviewed. Urinalysis; leukocyte esterase trace. Microbiology positive gram-negative rods. MENTAL STATUS EXAM: The patient presented to be alert, confused. The patient was not able to recognize her . The patient has periods of restless behavior and suspiciousness. The patient denied any thoughts of harming herself or others and was not able to understand the questions about that. Insight and judgment seems to be limited. Impulses are unpredictable. IMPRESSION Most likely delirium on dementia due to urinary tract infection. PLAN: Discussed with power of compliance attorney, the patient's as well as the patient's daughter, Hannah. Medications were confirmed by [facility]. Seroquel was resumed 25 mg twice a day as it was prescribed and in addition to that Seroquel 25 mg only as needed for agitation and sundowning. Lexapro was changed to the nighttime 10 mg. Xanax was decreased to 0.25 mg three times a day, Aricept, it is up to the neurology team. Aricept was 10 mg at the nighttime. The risks, benefits and alternatives of the medication were discussed with the patient's daughter Hannah. We will follow up and advise accordingly. Should you have any questions give me a call back. Physical therapy evaluation would be beneficial. Also, the patient will be continued on one-to-one because she is high risk of falls. We will follow up and advise accordingly. Thank you very much. Care of this patient took more than 45 minutes of this database report writer's time Stefania Verdugo MD MTDD
[2018-09-24 08:16] LABS: BASO # 0.02 K/mm3 (0.0-2.0); BASO % 0.2 % (0.0-3.0); EOS # 0.2 (0.0-0.7); EOS % 2.1 % (1.5-5.0); HEMOGLOBIN 11.4 g/dL (12.0-16.0); LYMPH # 2.1 (1.2-3.4); LYMPH % 21.8 % (22.0-35.0); MEAN CELL VOLUME 90.1 fl (80.0-105.0); MEAN CORPUSCULAR HEMOGLOBIN 28.1 pg (25.0-35.0); MEAN CORPUSCULAR HGB CONC 31.2 g/dl (31.0-37.0); MEAN PLATELET VOLUME 11.1 fl (7.0-11.0); MONO # 0.6 (0.1-0.6); MONO % 6.5 % (1.0-6.0); RBC 4.05 10^6/uL (3.5-6.1); RED CELL DISTRIBUTION WIDTH 14.9 % (11.5-14.5); WHITE BLOOD COUNT 9.8 10^3/uL (4.5-11.0)
[2018-09-24 08:28] LABS: ALB/GLOB RATIO 1.3 (1.1-1.8); ALBUMIN 3.9 g/dL (3.0-4.8); ALT/SGPT 36 U/L (7-56); AST/SGOT 56 U/L (14-36); BLOOD UREA NITROGEN 19 mg/dL (7-21); GFR NON-AFRICAN AMERICAN > 60
[2018-09-24] MEDS: Insulin Reg-LOW-Coverage SC SCH ×3 (08:49→17:04)
--- NOTE | 2018-09-24 09:46 | CP.PCM.PN ---
Subjective - Date & Time of Evaluation Date of Evaluation: 09/24/18 Time of Evaluation: 06:25 - Subjective Subjective: Awake, alert, no distress Reason for consultation and follow up:Cardiac evaluation of new onset atrial fibrillation Seen and examined by me and Dr. Ron Objective - Vital Signs/Intake and Output Vital Signs (last 24 hours): Temp Pulse Resp BP Pulse Ox 98 F 78 18 102/59 L 96 09/24/18 06:00 09/24/18 06:00 09/24/18 06:00 09/24/18 06:00 09/24/18 06:00 Intake and Output: 09/24/18 09/24/18 06:59 18:59 Intake Total 580 Balance 580 - Medications Medications: Current Medications Alprazolam (Xanax) 0.25 mg PO TID PRN; Protocol PRN Reason: Anxiety/restlessness Aspirin (Ecotrin) 81 mg PO DAILY [facility] Last Admin: 09/23/18 09:46 Dose: 81 mg Atorvastatin Calcium (Lipitor) 20 mg PO [facility] Last Admin: 09/23/18 21:22 Dose: 20 mg Clopidogrel Bisulfate (Plavix) 75 mg PO DAILY [facility] Last Admin: 09/23/18 09:46 Dose: 75 mg Docusate Sodium (Colace) 100 mg PO DAILY [facility] Last Admin: 09/23/18 09:45 Dose: 100 mg Escitalopram Oxalate (Lexapro) 10 mg PO HS [facility] Last Admin: 09/23/18 21:22 Dose: 10 mg Glipizide (Glucotrol) 10 mg PO BID [facility] Last Admin: 09/23/18 09:46 Dose: 10 mg Heparin Sodium/Sodium Chloride (Heparin 95450 Units/250ml 1/2 Normal Saline) 25 ,000 units in 250 mls @ 8.513 mls/hr IV .Q24H PRN; Protocol PRN Reason: ADJUST RATE PER PROTOCOL Last Admin: 09/23/18 07:52 Dose: 12 units/kg/hr, 8.513 mls/hr Ceftriaxone Sodium (Rocephin 1 Gram Ivpb) 1 gm in 100 mls @ 100 mls/hr IVPB DAILY [facility]; Protocol Last Admin: 09/23/18 13:13 Dose: 100 mls/hr Insulin Human Regular (Humulin R Low) 0 units SC [facility]; Protocol Last Admin: 09/24/18 08:49 Dose: 5 units Magnesium Oxide (Mag-Ox) 400 mg PO BID [facility] Last Admin: 09/22/18 18:00 Dose: Not Given Metoprolol Succinate (Toprol Xl) 25 mg PO BRK [facility] Last Admin: 09/23/18 07:54 Dose: 25 mg Ondansetron HCl (Zofran Inj) 4 mg IVP Q4H PRN PRN Reason: Nausea/Vomiting Last Admin: 09/23/18 11:20 Dose: 4 mg Quetiapine Fumarate (Seroquel) 25 mg PO DAILY PRN; Protocol PRN Reason: agitation/psychosis/restlessne Last Admin: 09/23/18 13:46 Dose: 25 mg Quetiapine Fumarate (Seroquel) 25 mg PO DAILY PRN PRN Reason: AGITATION/PSYCHOSIS/RESTLESTNE Warfarin Sodium (Coumadin) 4 mg PO 1800 [facility]; Protocol - Labs Labs: 09/24/18 08:00 09/24/18 08:00 PT 12.9 SECONDS (9.4-12.5) H 09/23/18 06:10 INR 1.14 09/23/18 06:10 APTT 52.4 Seconds (26.9-38.3) H 09/24/18 06:45 - Constitutional Appears: Non-toxic, No Acute Distress - Head Exam Head Exam: NORMAL INSPECTION, NORMOCEPHALIC - Eye Exam Eye Exam: Normal appearance Pupil Exam: NORMAL ACCOMODATION - ENT Exam ENT Exam: Mucous Membranes Moist, Normal Exam - Neck Exam Neck Exam: Full ROM, Normal Inspection - Respiratory Exam Respiratory Exam: Decreased Breath Sounds, Clear to Ausculation Bilateral, NORMAL BREATHING PATTERN - Cardiovascular Exam Cardiovascular Exam: Irregular Rhythm, +S1, +S2 Additional comments: Telemetry atrial fibrillation 70's - GI/Abdominal Exam GI & Abdominal Exam: Soft, Normal Bowel Sounds - Extremities Exam Extremities Exam: Full ROM Additional comments: left BKA - Neurological Exam Neurological Exam: Alert, Awake, Oriented x3 - Psychiatric Exam Psychiatric exam: Normal Affect, Normal Mood - Skin Skin Exam: Dry, Normal Color, Warm Assessment and Plan - Assessment and Plan (Free Text) Assessment: A 68 year old female who was brought to the ER due to altered mental status/ TIA symptoms. Family reported of sudden episode of AMS with associated aphasia, not following commands or speaking. In ER, symptoms resolved and back to baseline. History of coronary artery disease post CABG many years ago, on Plavix and Aspirin,hypertension, multiple TIA's,dementia, diabetes,hyperlipidemia,colonic polyps, peripheral vascular disease, post left below knee amputation.While in telemetry, patient went into rapid atrial fibrillation. New onset atrial fibrillation rate controlled. On Plavix and Aspirin. Patient has breakthrough TIA symptoms inspite of Plavix and ASA as anticoagulation, Coumadin added. Awake, alert now. Echo done and showed mild to moderate concentric LVH, LVEF 60-65%,Trace AR/TR, moderate mitral regurgitation. Plan: No distress, awake Heart rate controlled, atrial fibrillation 70's Continue on Aspirin and Eliquis Blood pressure controlled On ASA 81 mg daily,Lipitor 20 mg daily, Plavix 75 mg daily Lopressor 25 mg daily, Warfarin 4 mg daily Daily PTT/INR Continue on Heparin drip as ordered/protocol Discontinue Heparin once INR therapeutic Continue current treatment Continue current medications Will follow up Plan and treatment discussed with Dr. Ron
[2018-09-24] MEDS: cefTRIAXone 1 gm 1 GM/100 ML BAG IVPB SCH (10:35)
[2018-09-24] MEDS: Metoprolol Succinate 25 mg XL Tab PO SCH (10:36)
--- NOTE | 2018-09-24 10:40 | CP.PCM.PN ---
<Aguilar Sun - Last Filed: 09/24/18 10:31> Subjective - Date & Time of Evaluation Date of Evaluation: 09/24/18 Time of Evaluation: 08:00 - Subjective Subjective: Progress Note for Dr. Lyons Service Patient seen and examined at bedside. Patient is anxious and looking for her prosthesis. 1:1 sitter maintained for patient safety. Patient denied fever, chills, shortness of breath, chest pains, abdominal pains, vomiting, or cons tipation. Patient noted dysuria and nausea. Objective - Vital Signs/Intake and Output Vital Signs (last 24 hours): Temp Pulse Resp BP Pulse Ox 98 F 78 18 102/59 L 96 09/24/18 06:00 09/24/18 06:00 09/24/18 06:00 09/24/18 06:00 09/24/18 06:00 Intake and Output: 09/24/18 09/24/18 06:59 18:59 Intake Total 580 Balance 580 - Medications Medications: Current Medications Alprazolam (Xanax) 0.25 mg PO TID PRN; Protocol PRN Reason: Anxiety/restlessness Aspirin (Ecotrin) 81 mg PO DAILY [facility] Last Admin: 09/23/18 09:46 Dose: 81 mg Atorvastatin Calcium (Lipitor) 20 mg PO [facility] Last Admin: 09/23/18 21:22 Dose: 20 mg Clopidogrel Bisulfate (Plavix) 75 mg PO DAILY [facility] Last Admin: 09/23/18 09:46 Dose: 75 mg Docusate Sodium (Colace) 100 mg PO DAILY [facility] Last Admin: 09/23/18 09:45 Dose: 100 mg Escitalopram Oxalate (Lexapro) 10 mg PO [facility] Last Admin: 09/23/18 21:22 Dose: 10 mg Glipizide (Glucotrol) 10 mg PO BID [facility] Last Admin: 09/23/18 09:46 Dose: 10 mg Heparin Sodium/Sodium Chloride (Heparin 67497 Units/250ml 1/2 Normal Saline) 25,000 units in 250 mls @ 8.513 mls/hr IV .Q24H PRN; Protocol PRN Reason: ADJUST RATE PER PROTOCOL Last Admin: 09/23/18 07:52 Dose: 12 units/kg/hr, 8.513 mls/hr Ceftriaxone Sodium (Rocephin 1 Gram Ivpb) 1 gm in 100 mls @ 100 mls/hr IVPB DAILY [facility]; Protocol Last Admin: 09/23/18 13:13 Dose: 100 mls/hr Insulin Human Regular (Humulin R Low) 0 units SC ACHS [facility]; Protocol Last Admin: 09/24/18 08:49 Dose: 5 units Magnesium Oxide (Mag-Ox) 400 mg PO BID [facility] Last Admin: 09/22/18 18:00 Dose: Not Given Metoprolol Succinate (Toprol Xl) 25 mg PO BRK [facility] Last Admin: 09/23/18 07:54 Dose: 25 mg Ondansetron HCl (Zofran Inj) 4 mg IVP Q4H PRN PRN Reason: Nausea/Vomiting Last Admin: 09/23/18 11:20 Dose: 4 mg Quetiapine Fumarate (Seroquel) 25 mg PO DAILY PRN; Protocol PRN Reason: agitation/psychosis/restlessne Last Admin: 09/23/18 13:46 Dose: 25 mg Quetiapine Fumarate (Seroquel) 25 mg PO DAILY PRN PRN Reason: AGITATION/PSYCHOSIS/RESTLESTNE Warfarin Sodium (Coumadin) 4 mg PO 1800 [facility]; Protocol - Labs Labs: 09/24/18 08:00 09/24/18 08:00 PT 12.9 SECONDS (9.4-12.5) H 09/23/18 06:10 INR 1.14 09/23/18 06:10 APTT 52.4 Seconds (26.9-38.3) H 09/24/18 06:45 - Constitutional Appears: No Acute Distress, Confused - Head Exam Head Exam: ATRAUMATIC, NORMAL INSPECTION, NORMOCEPHALIC - Eye Exam Eye Exam: EOMI, Normal appearance, PERRL Pupil Exam: NORMAL ACCOMODATION, PERRL - ENT Exam ENT Exam: Mucous Membranes Moist, Normal Exam - Neck Exam Neck Exam: Full ROM, Normal Inspection. absent: Lymphadenopathy - Respiratory Exam Respiratory Exam: Clear to Ausculation Bilateral, NORMAL BREATHING PATTERN. absent: Rhonchi, Wheezes - Cardiovascular Exam Cardiovascular Exam: Irregular Rhythm, +S1, +S2. absent: Murmur - GI/Abdominal Exam GI & Abdominal Exam: Soft, Normal Bowel Sounds. absent: Tenderness - Extremities Exam Additional comments: L BKA - Neurological Exam Neurological Exam: Alert, Altered, Awake - Psychiatric Exam Psychiatric exam: Anxious Assessment and Plan - Assessment and Plan (Free Text) Assessment: new onset afib, rate controlled on AC Agitation UTI Leukocytosis, resolved TIA vs CVA, resolving Right Sided weakness(MCA syndrome) dysuria aphasia resolved HTN HLD DM2 with neuropathy CAD s/p CABG L BKA Depression Anxiety Anemia Constipation Plan: Patient is comfortable. MRI reviewed suspicious for acute mini infarct. Heparin drip for new onset afib, rate controlled. On Plavix and Aspirin. Patient has breakthrough TIA symptoms inspite of Plavix and ASA as anticoagulation, Coumadin added. Likely rec asa and eliquis. Echo done and showed mild to moderate concentric LVH, LVEF 60-65%,Trace AR/TR, moderate mitral regurgitation. Cardiology consulted, Dr. Ron following. Rocephin for UTI UA and UCx reviewed. Cx pending Patient is for PT s/p TIA, continue aspirin and high intensity statin for hx of CVA and CAD. Patient is to continue atorvastatin for dyslipidemia. Glipizide and low ISS for DM2. H&H stable. Pt has hx of L BKA with prosthesis.Psych consulted for agitation. 1:1 sitter maintained for patient safety. Will continue lexapro for depression seroquel for agitation, xanax for anxiety and colace for constipation. <Dionicio Lyons S - Last Filed: 09/24/18 16:34> Objective - Vital Signs/Intake and Output Vital Signs (last 24 hours): Temp Pulse Resp BP Pulse Ox 98.7 F 69 18 92/51 L 96 09/24/18 12:00 09/24/18 12:00 09/24/18 12:00 09/24/18 12:00 09/24/18 06:00 Intake and Output: 09/24/18 09/24/18 06:59 18:59 Intake Total 580 250 Balance 580 250 - Medications Medications: Current Medications Alprazolam (Xanax) 0.25 mg PO TID [facility]; Protocol Stop: 10/01/18 18:01 Apixaban (Eliquis) 5 mg PO BID [facility]; Protocol Aspirin (Ecotrin) 81 mg PO DAILY [facility] Last Admin: 09/24/18 10:36 Dose: 81 mg Atorvastatin Calcium (Lipitor) 40 mg PO DIN [facility] Cefpodoxime Proxetil (Vantin) 200 mg PO Q12 [facility] Docusate Sodium (Colace) 100 mg PO DAILY [facility] Last Admin: 09/24/18 10:36 Dose: 100 mg Escitalopram Oxalate (Lexapro) 10 mg PO HS [facility] Last Admin: 09/23/18 21:22 Dose: 10 mg Glipizide (Glucotrol) 10 mg PO BID [facility] Last Admin: 09/24/18 10:56 Dose: 10 mg Sodium Chloride (Sodium Chloride 0.9%) 1,000 mls @ 100 mls/hr IV .Q10H [facility] Last Admin: 09/24/18 12:33 Dose: 100 mls/hr Insulin Human Regular (Humulin R Low) 0 units SC ACHS [facility]; Protocol Last Admin: 09/24/18 12:34 Dose: 4 units Magnesium Oxide (Mag-Ox) 400 mg PO BID [facility] Last Admin: 09/22/18 18:00 Dose: Not Given Metoprolol Succinate (Toprol Xl) 25 mg PO BRK [facility] Last Admin: 09/24/18 10:36 Dose: 25 mg Ondansetron HCl (Zofran Inj) 4 mg IVP Q4H PRN PRN Reason: Nausea/Vomiting Last Admin: 09/23/18 11:20 Dose: 4 mg Quetiapine Fumarate (Seroquel) 25 mg PO DAILY PRN; Protocol PRN Reason: agitation/psychosis/restlessne Last Admin: 09/24/18 13:24 Dose: 25 mg - Labs Labs: 09/24/18 08:00 09/24/18 08:00 PT 12.9 SECONDS (9.4-12.5) H 09/23/18 06:10 INR 1.14 09/23/18 06:10 APTT 52.4 Seconds (26.9-38.3) H 09/24/18 06:45 Assessment and Plan - Assessment and Plan (Free Text) Assessment: Pt seen and examined by me. I have reviewed the note of the medical transcription editor and I agree with it. I have discussed the assessment and plan with the resident. I have reviewed the medications and the last labs.
--- NOTE | 2018-09-24 10:53 | CP.PCM.PCO ---
Physician Communication Note - Physician Communication Note Physician Communication Note: pt seen and examined at bedside, pt restless, iv heparin/coumadin noted Additional Comments - Additional Comments Additional Comments: ITS Impressions Chest X-Ray 09/21/18 20:48 IMPRESSION: Diminished inspiratory volume. No definite infiltrate, pleural effusion or pneumothorax. No pulmonary vascular congestion. Prominent cardiac silhouette identified. No definite pulmonary vascular congestion. Head CT 09/21/18 20:48 IMPRESSION: No acute intracranial findings Head/Neck CTA 09/21/18 21:21 IMPRESSION: CT angiography of the head and neck fails demonstrate occlusion or significant stenosis. Atherosclerotic bilateral cavernous internal carotid arteries are widely patent nevertheless a [id number] right carotid bulbar and mild left carotid bulbar atherosclerotic plaque is appreciated which are also patent. A lengthy Wallstent is identified at the distal right CCA and proximal right ICA with limited origin stenosis right ICA appreciated. [facility], 10:[address] 09/22/18 17:51 IMPRESSION: There is white matter encephalomalacia in the right parietal lobe and left frontal lobe. Chronic microvascular changes are seen. There are no acute findings Chest X-Ray 09/23/18 09:18 IMPRESSION: No active disease. Brain MRI 09/23/18 16:00 IMPRESSION: 1. Suspect tiny focus of acute infarction in the left posterior temporal subcortical white matter. 2. 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 3. Moderate chronic microangiopathic changes and mild age-related global parenchymal volume loss. Microbiology 09/22/18 13:20 Urine,Clean Catch Urine Culture - Final Escherichia Coli Labs and diagnostics noted. pt with positive MRI noted discuss with primary team, plan for [facility] vs home per family wishes pt continues with 1:1, restless and confused pt changed from coumadin to Eliquis will follow
[2018-09-24] MEDS ORDERED: Sodium Chloride 0.9% 1,000 ML IV SCH (12:15)
[2018-09-24 12:57] LABS: IRON 101 ug/dL (45-180)
[2018-09-24 13:07] LABS: % IRON SATURATION 30 % (20-55); TOTAL IRON BINDING CAPACITY 338 ug/dL (265-497)
[2018-09-24 17:44] LABS: FERRITIN 23.3 ng/mL
[2018-09-24 18:14] LABS: FOLATE > 20.0 ng/mL
--- NOTE | 2018-09-24 19:03 | PN ---
DATE: 09/24/2018 SUBJECTIVE: This patient was seen and examined today. The patient presented to be restless, anxious, kept moving. The patient's daughter Hannah is next to the patient. As per Hannah who is the patient's power of finance attorney at present moment, the patient is not at her baseline. Even though the patient took Xanax as well as Seroquel, she was able to rest only for 20 minutes. This freelance writer discussed the options and this freelance writer will give Xanax scheduled three times a day, possible increase of Seroquel to twice a day as needed. The patient appears to be confused and no meaningful conversation possible. PHYSICAL EXAMINATION: Vital signs reviewed. The patient has low blood pressure of 92/51. MEDICATIONS Reviewed. The patient is on Xanax 0.25 mg three times a day, which was p.r.n. and this freelance writer will schedule three times a day Xanax or equivalent. Aspirin, Lipitor, Vantin, Colace, Lexapro 10 mg at the nighttime, glipizide, Humulin, magnesium oxide, Tapazole, Zofran, Seroquel as needed daily, the patient was on twice a day 25 mg and the patient is on sodium chloride. LABORATORY DATA: Labs reviewed. Coagulation reviewed. Urinalysis reviewed. Microbiology was reviewed. Urine culture is positive for gram-negative E. coli. MENTAL STATUS EXAMINATION: The patient appears to be restless and will keep constantly moving, anxious, confused. IMPRESSION: Most likely the patient is in delirium stage due to urinary tract infection. PLAN: Xanax 0.25 mg three times a day scheduled, Seroquel 25 mg daily as needed with a plan to possibly increase the dose. Family involved, discussed with the patient's power of finance attorney. We will follow up and advise accordingly. Should you have any questions give me a call back. Stefania Verdugo MD
--- NOTE | 2018-09-24 19:11 | PN ---
DATE: 09/24/2018 SUBJECTIVE: The patient was seen and examined. I do agree with the note of the medical billing coder. I was involved in the plan of care. The patient has an MRI that showed an acute CVA in the left posterior temporal subcortical white matter. The patient's was updated by Dr. Ron. I spoke with Dr. Ron, and the patient does not need to be on Plavix. The patient is on anticoagulation. She will be switched from heparin to Eliquis. She is on glipizide for her diabetes. She is on Lipitor for her dyslipidemia. She was agitated, so a one-to-one sitter was placed. She is feeling better this morning; more awake and alert. Her EF is 60% to 65%. She has moderate LVH. She denies any pain. She is on Lexapro for her anxiety. She is on magnesium replacement. She is receiving Colace for constipation. She is on IV fluids. The patient is being referred to the Transitional Care Unit. Dionicio Lyons MD
[2018-09-24] MEDS ORDERED: Albuterol-Ipratrop 3 mg / 0.5 (3 ml) UD IH PRN (19:19)
[2018-09-25] MEDS: Insulin Reg-LOW-Coverage SC SCH ×5 (05:08→22:08)
--- NOTE | 2018-09-25 06:56 | CP.PCM.PN ---
Subjective - Date & Time of Evaluation Date of Evaluation: 09/25/18 Time of Evaluation: 06:20 - Subjective Subjective: Awake, alert, no distress Reason for consultation and follow up:Cardiac evaluation of new onset atrial fibrillation Seen and examined by me and Dr. Ron Objective - Vital Signs/Intake and Output Vital Signs (last 24 hours): Temp Pulse Resp BP Pulse Ox 98.1 F 71 20 111/52 L 96 09/25/18 06:00 09/25/18 06:00 09/25/18 06:00 09/25/18 06:00 09/24/18 06:00 Intake and Output: 09/24/18 09/25/18 18:59 06:59 Intake Total 250 120 Balance 250 120 - Medications Medications: Current Medications Albuterol/Ipratropium (Duoneb 3 Mg/0.5 Mg (3 Ml) Ud) 3 ml IH Q2H PRN PRN Reason: Shortness of Breath Alprazolam (Xanax) 0.25 mg PO TID [facility]; Protocol Stop: 10/01/18 18:01 Last Admin: 09/24/18 17:06 Dose: 0.25 mg Apixaban (Eliquis) 5 mg PO BID [facility]; Protocol Last Admin: 09/24/18 17:06 Dose: 5 mg Aspirin (Ecotrin) 81 mg PO DAILY [facility] Last Admin: 09/24/18 10:36 Dose: 81 mg Atorvastatin Calcium (Lipitor) 40 mg PO DIN [facility] Last Admin: 09/24/18 17:07 Dose: 40 mg Cefpodoxime Proxetil (Vantin) 200 mg PO Q12 [facility] Docusate Sodium (Colace) 100 mg PO DAILY [facility] Last Admin: 09/24/18 10:36 Dose: 100 mg Escitalopram Oxalate (Lexapro) 10 mg PO HS [facility] Last Admin: 09/24/18 21:42 Dose: 10 mg Glipizide (Glucotrol) 10 mg PO BID [facility] Last Admin: 09/24/18 17:07 Dose: 10 mg Insulin Human Regular (Humulin R Low) 0 units SC ACHS [facility]; Protocol Last Admin: 09/25/18 05:08 Dose: Not Given Magnesium Oxide (Mag-Ox) 400 mg PO BID [facility] Last Admin: 09/22/18 18:00 Dose: Not Given Metoprolol Succinate (Toprol Xl) 25 mg PO BRK [facility] Last Admin: 09/24/18 10:36 Dose: 25 mg Ondansetron HCl (Zofran Inj) 4 mg IVP Q4H PRN PRN Reason: Nausea/Vomiting Last Admin: 09/23/18 11:20 Dose: 4 mg Quetiapine Fumarate (Seroquel) 25 mg PO DAILY [facility]; Protocol PRN Reason: agitation/psychosis/restlessne Last Admin: 09/24/18 13:24 Dose: 25 mg - Labs Labs: 09/24/18 08:00 09/24/18 08:00 PT 12.9 SECONDS (9.4-12.5) H 09/23/18 06:10 INR 1.14 09/23/18 06:10 APTT 52.4 Seconds (26.9-38.3) H 09/24/18 06:45 - Constitutional Appears: Non-toxic, No Acute Distress - Head Exam Head Exam: NORMAL INSPECTION, NORMOCEPHALIC - Eye Exam Eye Exam: Normal appearance Pupil Exam: NORMAL ACCOMODATION - ENT Exam ENT Exam: Mucous Membranes Moist, Normal Exam - Respiratory Exam Respiratory Exam: Decreased Breath Sounds, Clear to Ausculation Bilateral, NORMAL BREATHING PATTERN - Cardiovascular Exam Cardiovascular Exam: Irregular Rhythm, +S1, +S2 Additional comments: atrial fibrillation, 70's - GI/Abdominal Exam GI & Abdominal Exam: Soft, Normal Bowel Sounds - Extremities Exam Extremities Exam: Full ROM Additional comments: left BKA - Neurological Exam Neurological Exam: Alert, Awake - Psychiatric Exam Psychiatric exam: Normal Affect, Normal Mood - Skin Skin Exam: Dry, Normal Color, Warm Assessment and Plan - Assessment and Plan (Free Text) Assessment: A 68 year old female who was brought to the ER due to altered mental status/ TIA symptoms. Family reported of sudden episode of AMS with associated aphasia, not following commands or speaking. In ER, symptoms resolved and back to baseline. History of coronary artery disease post CABG many years ago, on Plavix and Aspirin,hypertension, multiple TIA's,dementia, diabetes,hyperlipidemia,colonic polyps, peripheral vascular disease, post left below knee amputation.While in telemetry, patient went into rapid atrial fibrillation. New onset atrial fibrillation rate controlled. On Plavix and Aspirin. Patient has breakthrough TIA symptoms inspite of Plavix and ASA as anticoagulation, On Heparin and Coumadin and Plavix discontinued and put on Eliquis. Echo done and showed mild to moderate concentric LVH, LVEF 60-65%,Trace AR/TR, moderate mitral regurgitation. Cardiac status stable. Discharge planning. Will discontinue telemetry. May discharge from cardiac standpoint. Plan: Cardiac status stable No distress, awake Heart rate controlled, atrial fibrillation 70's Continue on Aspirin and Eliquis Blood pressure controlled On ASA 81 mg daily,Lipitor 20 mg daily,Eliquis 5 mg BID Lopressor 25 mg daily, Continue current treatment Continue current medications Discharge planning. Will discontinue telemetry. May discharge from cardiac standpoint. Will follow up Plan and treatment discussed with Dr. Ron
[2018-09-25] MEDS: Metoprolol Succinate 25 mg XL Tab PO SCH (08:13)
--- NOTE | 2018-09-25 08:36 | CP.PCM.PN ---
<Aguilar Sun - Last Filed: 09/25/18 12:45> Subjective - Date & Time of Evaluation Date of Evaluation: 09/25/18 Time of Evaluation: 07:00 - Subjective Subjective: Progress Note for Dr. Lyons Patient seen and examined this morning. Conversing appropriately and lying comfortably. 1:1 sitter maintained for patient safety. Patient denied any acute complaints at this time. Patient states she was mildly nauseous yesterday but has resolved. Patient denied fever, chills, shortness of breath, chest pains, abdominal pains, vomiting, diarrhea, dysuria. Objective - Vital Signs/Intake and Output Vital Signs (last 24 hours): Temp Pulse Resp BP Pulse Ox 98.1 F 87 20 145/70 96 09/25/18 06:00 09/25/18 08:13 09/25/18 06:00 09/25/18 08:13 09/24/18 06:00 Intake and Output: 09/25/18 09/25/18 06:59 18:59 Intake Total 120 Balance 120 - Medications Medications: Current Medications Albuterol/Ipratropium (Duoneb 3 Mg/0.5 Mg (3 Ml) Ud) 3 ml IH Q2H PRN PRN Reason: Shortness of Breath Alprazolam (Xanax) 0.25 mg PO TID [facility]; Protocol Stop: 10/01/18 18:01 Last Admin: 09/24/18 17:06 Dose: 0.25 mg Apixaban (Eliquis) 5 mg PO BID [facility]; Protocol Last Admin: 09/24/18 17:06 Dose: 5 mg Aspirin (Ecotrin) 81 mg PO DAILY [facility] Last Admin: 09/24/18 10:36 Dose: 81 mg Atorvastatin Calcium (Lipitor) 40 mg PO DIN [facility] Last Admin: 09/24/18 17:07 Dose: 40 mg Cefpodoxime Proxetil (Vantin) 200 mg PO Q12 [facility] Docusate Sodium (Colace) 100 mg PO DAILY [facility] Last Admin: 09/24/18 10:36 Dose: 100 mg Escitalopram Oxalate (Lexapro) 10 mg PO HS [facility] Last Admin: 09/24/18 21:42 Dose: 10 mg Glipizide (Glucotrol) 10 mg PO BID [facility] Last Admin: 09/24/18 17:07 Dose: 10 mg Insulin Human Regular (Humulin R Low) 0 units SC ACHS [facility]; Protocol Last Admin: 09/25/18 08:12 Dose: 3 units Magnesium Oxide (Mag-Ox) 400 mg PO BID [facility] Last Admin: 09/22/18 18:00 Dose: Not Given Metoprolol Succinate (Toprol Xl) 25 mg PO BRK [facility] Last Admin: 09/25/18 08:13 Dose: 25 mg Ondansetron HCl (Zofran Inj) 4 mg IVP Q4H PRN PRN Reason: Nausea/Vomiting Last Admin: 09/23/18 11:20 Dose: 4 mg Quetiapine Fumarate (Seroquel) 25 mg PO DAILY PRN; Protocol PRN Reason: agitation/psychosis/restlessne Last Admin: 09/24/18 13:24 Dose: 25 mg - Labs Labs: 09/24/18 08:00 09/24/18 08:00 PT 12.9 SECONDS (9.4-12.5) H 09/23/18 06:10 INR 1.14 09/23/18 06:10 APTT 52.4 Seconds (26.9-38.3) H 09/24/18 06:45 - Constitutional Appears: No Acute Distress - Head Exam Head Exam: ATRAUMATIC, NORMAL INSPECTION, NORMOCEPHALIC - Eye Exam Eye Exam: EOMI, Normal appearance, PERRL Pupil Exam: NORMAL ACCOMODATION, PERRL - ENT Exam ENT Exam: Mucous Membranes Moist, Normal Exam - Neck Exam Neck Exam: Full ROM, Normal Inspection. absent: Lymphadenopathy - Respiratory Exam Respiratory Exam: Clear to Ausculation Bilateral, NORMAL BREATHING PATTERN - Cardiovascular Exam Cardiovascular Exam: Irregular Rhythm, +S1, +S2. absent: Murmur - GI/Abdominal Exam GI & Abdominal Exam: Soft, Normal Bowel Sounds. absent: Tenderness - Neurological Exam Neurological Exam: Altered, Awake. absent: Oriented x3 (aaox2) - Psychiatric Exam Psychiatric exam: Anxious - Skin Skin Exam: Dry, Intact, Normal Color, Warm Assessment and Plan - Assessment and Plan (Free Text) Assessment: new onset afib, rate controlled on AC Agitation UTI Leukocytosis, resolved TIA vs CVA, resolving Right Sided weakness(MCA syndrome) dysuria aphasia resolved HTN HLD DM2 with neuropathy CAD s/p CABG L BKA Depression Anxiety Anemia Constipation Plan: Patient is comfortable. MRI reviewed acute left posterior temporal infarct. Eliquis for new onset afib, heparin drip and coumadin discontinued as per cardiology Dr. Ron. Echo done and showed mild to moderate concentric LVH, LVEF 60-65%,Trace AR/TR, moderate mitral regurgitation. Rocephin for UTI UA and UCx reviewed. Cx reviewed. Patient is for PT s/p TIA, continue aspirin and high intensity statin for hx of CVA and CAD. Patient is to continue atorvastatin for dyslipidemia. Glipizide and low ISS for DM2. H&H stable. Pt has hx of L BKA with prosthesis.Psych consulted for agitation. 1:1 sitter maintained for patient safety this morning. Will discontinue telemetry monitoring, cleared for discharge from cardiac standpoint. Will discontinue the 1:1 for now. Will continue lexapro for depression seroquel for agitation, xanax for anxiety and colace for constipation. <Dionicio Lyons S - Last Filed: 09/25/18 19:40> Objective - Vital Signs/Intake and Output Vital Signs (last 24 hours): Temp Pulse Resp BP Pulse Ox 98.4 F 82 20 124/80 95 09/25/18 18:00 09/25/18 18:00 09/25/18 18:00 09/25/18 18:00 09/25/18 18:00 Intake and Output: 09/25/18 09/26/18 18:59 06:59 Intake Total 780 Output Total 200 Balance 580 - Medications Medications: Current Medications Albuterol/Ipratropium (Duoneb 3 Mg/0.5 Mg (3 Ml) Ud) 3 ml IH Q2H PRN PRN Reason: Shortness of Breath Alprazolam (Xanax) 0.25 mg PO TID [facility]; Protocol Stop: 10/01/18 18:01 Last Admin: 09/25/18 17:19 Dose: 0.25 mg Apixaban (Eliquis) 5 mg PO BID [facility]; Protocol Last Admin: 09/25/18 17:18 Dose: 5 mg Aspirin (Ecotrin) 81 mg PO DAILY [facility] Last Admin: 09/25/18 09:36 Dose: 81 mg Atorvastatin Calcium (Lipitor) 40 mg PO DIN [facility] Last Admin: 09/25/18 17:19 Dose: 40 mg Cefpodoxime Proxetil (Vantin) 200 mg PO Q12 [facility] Last Admin: 09/25/18 09:38 Dose: 200 mg Docusate Sodium (Colace) 100 mg PO DAILY [facility] Last Admin: 09/25/18 09:36 Dose: 100 mg Escitalopram Oxalate (Lexapro) 10 mg PO HS [facility] Last Admin: 09/24/18 21:42 Dose: 10 mg Glipizide (Glucotrol) 10 mg PO BID [facility] Last Admin: 09/25/18 17:18 Dose: 10 mg Insulin Human Regular (Humulin R Low) 0 units SC ACHS [facility]; Protocol Last Admin: 09/25/18 17:19 Dose: 4 units Magnesium Oxide (Mag-Ox) 400 mg PO BID [facility] Last Admin: 09/22/18 18:00 Dose: Not Given Metoprolol Succinate (Toprol Xl) 25 mg PO BRK [facility] Last Admin: 09/25/18 08:13 Dose: 25 mg Ondansetron HCl (Zofran Inj) 4 mg IVP Q4H PRN PRN Reason: Nausea/Vomiting Last Admin: 09/23/18 11:20 Dose: 4 mg Quetiapine Fumarate (Seroquel) 25 mg PO DAILY PRN; Protocol PRN Reason: agitation/psychosis/restlessne Last Admin: 09/24/18 13:24 Dose: 25 mg - Labs Labs: 09/25/18 08:28 09/25/18 08:28 PT 12.9 SECONDS (9.4-12.5) H 09/23/18 06:10 INR 1.14 09/23/18 06:10 APTT 29.3 Seconds (26.9-38.3) 09/25/18 08:15 Assessment and Plan - Assessment and Plan (Free Text) Assessment: Pt seen and examined by me. I have reviewed the note of the biomedical service engineer and I agree with it. I have discussed the assessment and plan with the resident. I have reviewed the medications and the last labs.
[2018-09-25 08:54] LABS: BASO # 0.02 K/mm3 (0.0-2.0); BASO % 0.2 % (0.0-3.0); EOS # 0.2 (0.0-0.7); EOS % 2.2 % (1.5-5.0); HEMOGLOBIN 10.8 g/dL (12.0-16.0); LYMPH # 1.7 (1.2-3.4); LYMPH % 16.7 % (22.0-35.0); MEAN CELL VOLUME 88.8 fl (80.0-105.0); MEAN CORPUSCULAR HEMOGLOBIN 28.1 pg (25.0-35.0); MEAN CORPUSCULAR HGB CONC 31.7 g/dl (31.0-37.0); MEAN PLATELET VOLUME 10.9 fl (7.0-11.0); MONO # 0.5 (0.1-0.6); MONO % 4.9 % (1.0-6.0); RBC 3.84 10^6/uL (3.5-6.1); RED CELL DISTRIBUTION WIDTH 14.9 % (11.5-14.5); WHITE BLOOD COUNT 10.3 10^3/uL (4.5-11.0)
[2018-09-25 09:05] LABS: ALB/GLOB RATIO 1.2 (1.1-1.8); ALBUMIN 3.9 g/dL (3.0-4.8); ALT/SGPT 30 U/L (7-56); AST/SGOT 35 U/L (14-36); BLOOD UREA NITROGEN 19 mg/dL (7-21); CALCIUM 8.7 mg/dL (8.4-10.5); GFR NON-AFRICAN AMERICAN > 60
--- NOTE | 2018-09-25 09:16 | PCM.PPROG ---
History of Present Illness - History of Present Illness History of Present Illness: Awake, less confused Review of Systems - Review of Systems All systems: reviewed and no additional remarkable complaints except Physical Exam - Constitutional Appears: No Acute Distress, Chronically Ill - Head Exam Head Exam: NORMOCEPHALIC - Eye Exam Eye Exam: Normal appearance, PERRL - ENT Exam ENT Exam: Mucous Membranes Moist - Respiratory Exam Respiratory Exam: Clear to Auscultation Bilateral, NORMAL BREATHING PATTERN - Cardiovascular Exam Cardiovascular Exam: REGULAR RHYTHM, +S1, +S2 - GI/Abdominal Exam GI & Abdominal Exam: Normal Bowel Sounds, Soft - Extremities Exam Extremities exam: Positive for: normal inspection Additional comments: Left BKA - Back Exam Back exam: NORMAL INSPECTION - Neurological Exam Neurological exam: Alert - Psychiatric Exam Psychiatric exam: Anxious - Skin Skin Exam: Dry, Pallor Palliative Care Assessment - Modified MRC Dyspnea Scale Modified MRC Dyspnea Scale: Not troubled by breathlessness except on strenous exercise Grade: 1 - Pain Scale Pain Score: 0 Pain Scale Used: Numeric - Thierry Scale Sensory Perception: Very Limited Moisture: Occasionally Moist Activity: Walks Occasionally Mobility: Very Limited Nutrition: Adequate Friction & Shear: Potential Problem Total Score - Skin Risk Assessment: 15 - Psychosocial Distress Patient screened for psychosocial distress: No Palliative Care - Goals Treatment Goal(s): Alleviate symptoms, Improve quality of life End of life care discussed: Yes - Plan Interdisciplinary involved: Nurse, wireworker supervisor, application release manager, Physician Discharge planning: Home Assessment & Plan - Assessment and Plan (Free Text) Assessment: 68 year old female with history of multiple TIA's,dementia, HTN, DM2, HLD, GERD, CAD s/p CABG who is admitted with AMS, right sided weakness, new A fib,CVA Daughter Hannah at bedside. I explained that I was attempted to meet with her sibling yesterday. But she did not arrive during the the designated appointment time. Hannah states she is not sure what time her sister arrived. POLST directive explained, a copy of the document was left for family to review. Hannah states that she will speak with her sister and let me know of their decision Time spent with family in goals of care discussion, 20 minutes Plan: Goals of care and advance care planning Neurology following, EEG mild diffuse slowing, no seizures. MRI and and Echo with bubble study pending. Cardiology/New A Fib Continue Heparin, ASA, Plavix, Toprol. DM: Fingersticks ACHS, Glucotrol and Insulin coverage as ordered. Lexapro,Seroquel as ordered
[2018-09-25] MEDS: Cefpodoxime (Vantin) 200 mg Tab PO SCH ×2 (09:38→22:09)
--- NOTE | 2018-09-25 10:54 | CP.PCM.PCO ---
Physician Communication Note - Physician Communication Note Physician Communication Note: pt seen and examined , still confused, restless 1:1 , card recs noted Additional Comments - Additional Comments Additional Comments: ITS Impressions Chest X-Ray 09/21/18 20:48 IMPRESSION: Diminished inspiratory volume. No definite infiltrate, pleural effusion or pneumothorax. No pulmonary vascular congestion. Prominent cardiac silhouette identified. No definite pulmonary vascular congestion. Head CT 09/21/18 20:48 IMPRESSION: No acute intracranial findings Head/Neck CTA 09/21/18 21:21 IMPRESSION: CT angiography of the head and neck fails demonstrate occlusion or significant stenosis. Atherosclerotic bilateral cavernous internal carotid arteries are widely patent nevertheless a [id number] right carotid bulbar and mild left carotid bulbar atherosclerotic plaque is appreciated which are also patent. A lengthy Wallstent is identified at the distal right CCA and proximal right ICA with limited origin stenosis right ICA appreciated. Concordant preliminary report from [facility], 09/21/2018, 10:[address] 09/22/18 17:51 IMPRESSION: There is white matter encephalomalacia in the right parietal lobe and left frontal lobe. Chronic microvascular changes are seen. There are no acute findings Chest X-Ray 09/23/18 09:18 IMPRESSION: No active disease. Brain MRI 09/23/18 16:00 IMPRESSION: 1. Suspect tiny focus of acute infarction in the left posterior temporal subcortical white matter. 2. 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 3. Moderate chronic microangiopathic changes and mild age-related global parenchymal volume loss. pt with acute infarct on MRI : left posterior temporal subcortical white matter. pt off IV heparin and now on Eliquis pt dc tele PT recs for [facility] noted, family plans to take pt home when medically cleared. will follow
--- NOTE | 2018-09-25 17:26 | PN ---
DATE: 09/25/2018 SUBJECTIVE: The patient is a 68-year-old female who was admitted on the medical site for evaluation of altered mental status. Psych consult was involved because of altered mental status as well as the patient is on psychotropic medication as well as the patient has delirium and dementia. Please see previous note for more detailed information. Over the past couple of days, the patient is slowly improving. The patient is compliant with the medication. No agitation and no aggression, but at the same time the patient has periods of restlessness and confusion. Vital signs are stable. Temperature 98.1, pulse 87, blood pressure 145/70, and respirations 20. MEDICATIONS: Reviewed. The patient is on DuoNeb and Xanax 0.25 mg three times a day scheduled. The patient tolerates that well and today the patient presented more relaxed and less restless. The patient is on Eliquis; aspirin; Lipitor; Vantin; Colace; Lexapro 10 mg at the nighttime; Humulin; magnesium oxide; Toprol; Zofran; and Seroquel, last dose was given yesterday at 01:24 p.m. LABORATORY DATA: Labs reviewed. Microbiology reviewed. MENTAL STATUS EXAM: The patient presented to be alert. The patient was able to name her , but the patient is convinced that this is her sister. The patient is not aware that she is in the hospital. The patient is confabulating and appears to be confused. Thought process seems to be disorganized thought content. The patient was not able to understand the questions about psychosis or suicidal ideations. Insight and judgment seems to be impaired. Impulses are better controlled. IMPRESSION: Most likely the patient is in delirium stage plus dementia due to urinary tract infection. PLAN: Seroquel only as needed. Medications were confirmed by the patient's pharmacy. Xanax 0.25 mg three times a day scheduled, gives good result. The patient is less agitated and more relaxed. Lexapro should be continued. We will follow up and advise accordingly. Treatment plan was discussed with primary care physician, Dr. Lyons and with the patient power of research attorney, her and their daughter. Should you have any questions, give me a call back. Stefania Verdugo MD [facility] # [phone]
--- NOTE | 2018-09-26 00:42 | PN ---
DATE: 09/25/2018 SUBJECTIVE: The patient was seen and examined. I do agree with the note of the biomedical instrument technician that was involved in the plan of care. The patient is waiting to go to a subacute rehab facility. She is on Eliquis for her atrial fibrillation. She had CVA that was seen on MRI over the left posterior temporal lobe. She has hypertension. Her blood pressure is controlled. She is on Lipitor for dyslipidemia. She is on a one-to-one sitter. She is on Seroquel for her depression. No agitation. She is on Xanax. She continues to do as well. She is on Colace for constipation. She has coronary artery disease and is on aspirin for this. She is being followed by Dr. Ron. The patient is on a heart-healthy diet. The patient is on glipizide for her diabetes. She is receiving metoprolol for diabetes as well. She is on Vantin for her urinary tract infection secondary to E. coli. The patient's is not interested in subacute and prefers to the home. The patient remains confused. She is being followed by Dr. Aguiar from Psychiatry. I did review the note. Dionicio Lyons MD
[2018-09-26] MEDS: Metoprolol Succinate 25 mg XL Tab PO SCH (08:49)
[2018-09-26] MEDS: Insulin Reg-LOW-Coverage SC SCH ×3 (08:51→22:00)
[2018-09-26] MEDS: Cefpodoxime (Vantin) 200 mg Tab PO SCH ×2 (10:08→22:00)
--- NOTE | 2018-09-26 10:31 | CP.PCM.CON ---
<Honey Glass - Last Filed: 09/26/18 10:32> History of Present Illness - History of Present Illness History of Present Illness: This is a 68 female history of multiple TIAs, HTN, DM2, HLD, CAD s/p CABG who presented to the ED on 09/21/18 with sudden episode of AMS associated aphasia.Family reports she was unable follow commands or speak. Patient's symptoms quickly improved upon arrival, family confirms she returned to baseline mentation. states she has pain in her feet due to her elongated toenails in the left foot. She denied fevers, shortness of breath, chest pains, abdominal pains, nausea, vomiting, diarrhea, constipation or headaches Past Patient History - Infectious Disease Hx of Infectious Diseases: None - Tetanus Immunizations Tetanus Immunization: Unknown - Past Medical History & Family History Past Family History: Reviewed and not pertinent - Past Social History Smoking Status: Never Smoked - CARDIAC Hx Cardiac Disorders: Yes Hx Hypertension: Yes - PULMONARY Hx Respiratory Disorders: No - NEUROLOGICAL HX Cerebrovascular Accident: Yes - HEENT Hx HEENT Problems: Yes Hx Cataracts: Yes Other/Comment: eyeglasses - RENAL Hx Chronic Kidney Disease: Yes - ENDOCRINE/METABOLIC Hx Diabetes Mellitus Type 2: Yes - HEMATOLOGICAL/ONCOLOGICAL Hx Blood Disorders: Yes Hx Anemia: Yes Hx Shingles: Yes (3 years ago) Other/Comment: had chickenpox as a child - INTEGUMENTARY Hx Dermatological Problems: No - MUSCULOSKELETAL/RHEUMATOLOGICAL Hx Arthritis: Yes - GASTROINTESTINAL Hx Gastrointestinal Disorders: Yes Hx Gastroesophageal Reflux: Yes Other/Comment: gastritis,colon polyps - GENITOURINARY/GYNECOLOGICAL Hx Genitourinary Disorders: No - PSYCHIATRIC Hx Psychophysiologic Disorder: Yes Hx Anxiety: Yes Hx Depression: Yes Hx Emotional Abuse: No Hx Physical Abuse: No Hx Substance Use: No - SURGICAL HISTORY Hx Amputation: Yes Hx Open Heart Surgery: Yes (CABG) Hx Orthopedic Surgery: Yes (L BKA) - ANESTHESIA Hx Anesthesia Reactions: No Hx Malignant Hyperthermia: No Meds Allergies/Adverse Reactions: Allergies Allergy/AdvReac Type Severity Reaction Status Date / Time No Known Allergies Allergy Verified 09/21/18 20:37 - Medications Medications: Current Medications Albuterol/Ipratropium (Duoneb 3 Mg/0.5 Mg (3 Ml) Ud) 3 ml IH Q2H PRN PRN Reason: Shortness of Breath Alprazolam (Xanax) 0.25 mg PO TID [facility]; Protocol Stop: 10/01/18 18:01 Last Admin: 09/26/18 10:08 Dose: 0.25 mg Apixaban (Eliquis) 5 mg PO BID [facility]; Protocol Last Admin: 09/26/18 10:08 Dose: 5 mg Aspirin (Ecotrin) 81 mg PO DAILY [facility] Last Admin: 09/26/18 10:07 Dose: 81 mg Atorvastatin Calcium (Lipitor) 40 mg PO DIN [facility] Last Admin: 09/25/18 17:19 Dose: 40 mg Cefpodoxime Proxetil (Vantin) 200 mg PO Q12 [facility] Last Admin: 09/26/18 10:08 Dose: 200 mg Docusate Sodium (Colace) 100 mg PO DAILY [facility] Last Admin: 09/26/18 10:07 Dose: 100 mg Escitalopram Oxalate (Lexapro) 10 mg PO HS [facility] Last Admin: 09/25/18 22:09 Dose: 10 mg Glipizide (Glucotrol) 10 mg PO BID [facility] Last Admin: 09/26/18 10:08 Dose: 10 mg Insulin Human Regular (Humulin R Low) 0 units SC [facility]; Protocol Last Admin: 09/26/18 08:51 Dose: 2 units Magnesium Hydroxide (Milk Of Magnesia) 30 ml PO DAILY PRN PRN Reason: Constipation Magnesium Oxide (Mag-Ox) 400 mg PO BID [facility] Last Admin: 09/22/18 18:00 Dose: Not Given Metoprolol Succinate (Toprol Xl) 25 mg PO BRK [facility] Last Admin: 09/26/18 08:49 Dose: 25 mg Ondansetron HCl (Zofran Inj) 4 mg IVP Q4H PRN PRN Reason: Nausea/Vomiting Last Admin: 09/23/18 11:20 Dose: 4 mg Quetiapine Fumarate (Seroquel) 25 mg PO DAILY [facility]; Protocol PRN Reason: agitation/psychosis/restlessne Last Admin: 09/25/18 22:50 Dose: 25 mg Physical Exam - Extremities Exam Additional comments: LLE focused exam, right BKA Vasc: DP/PT pulses palpable Skin temperature warm to warm from proximal to d istal. CFT < 3 secondsx4 , No erythema noted Neuro: Epicritic and protective sensation grossly intact Derm: Long, dystrophic nails 1-4, Otherwise no open lesions, wounds, maceration, xerosis, abnormal pigmentation or abnormal growths noted MSK: No POP, ROM WNL to all major joints Results - Vital Signs Recent Vital Signs: Last Vital Signs Temp 98.6 F 09/26/18 08:16 Pulse 91 H 09/26/18 08:49 Resp 20 09/26/18 08:16 BP 105/49 L 09/26/18 08:49 Pulse Ox 99 09/26/18 08:16 - Labs Result Diagrams: 09/25/18 08:28 09/25/18 08:28 Labs: Laboratory Results - last 24 hr 09/25/18 09/25/18 09/25/18 07:56 11:46 16:00 POC Glucose (mg/dL) 250 H 337 H 303 H 09/25/18 09/26/18 21:26 07:23 POC Glucose (mg/dL) 281 H 249 H Assessment & Plan - Assessment and Plan (Free Text) Assessment: 66 year old female seen at bedside for elongated, dystrophic nails in the left lower extremity x 4 Plan: Patient seen and evaluated at bedside with attending Dr. Bullard Nails debrided using sterile nail nippers patient tolerated witout any complciations Patient to continue to follow up with Dr Bullard <Lamont Bullard - Last Filed: 09/26/18 13:54> Meds - Medications Medications: Current Medications Albuterol/Ipratropium (Duoneb 3 Mg/0.5 Mg (3 Ml) Ud) 3 ml IH Q2H PRN PRN Reason: Shortness of Breath Alprazolam (Xanax) 0.25 mg PO TID [facility]; Protocol Stop: 10/01/18 18:01 Last Admin: 09/26/18 13:48 Dose: 0.25 mg Apixaban (Eliquis) 5 mg PO BID [facility]; Protocol Last Admin: 09/26/18 10:08 Dose: 5 mg Aspirin (Ecotrin) 81 mg PO DAILY [facility] Last Admin: 09/26/18 10:07 Dose: 81 mg Atorvastatin Calcium (Lipitor) 40 mg PO DIN [facility] Last Admin: 09/25/18 17:19 Dose: 40 mg Cefpodoxime Proxetil (Vantin) 200 mg PO Q12 [facility] Last Admin: 09/26/18 10:08 Dose: 200 mg Docusate Sodium (Colace) 100 mg PO DAILY [facility] Last Admin: 09/26/18 10:07 Dose: 100 mg Escitalopram Oxalate (Lexapro) 10 mg PO HS [facility] Last Admin: 09/25/18 22:09 Dose: 10 mg Glipizide (Glucotrol) 10 mg PO BID [facility] Last Admin: 09/26/18 10:08 Dose: 10 mg Insulin Human Regular (Humulin R Low) 0 units SC ACHS [facility]; Protocol Last Admin: 09/26/18 08:51 Dose: 2 units Magnesium Hydroxide (Milk Of Magnesia) 30 ml PO DAILY PRN PRN Reason: Constipation Last Admin: 09/26/18 10:33 Dose: 30 ml Magnesium Oxide (Mag-Ox) 400 mg PO BID [facility] Last Admin: 09/22/18 18:00 Dose: Not Given Metoprolol Succinate (Toprol Xl) 25 mg PO BRK [facility] Last Admin: 09/26/18 08:49 Dose: 25 mg Ondansetron HCl (Zofran Inj) 4 mg IVP Q4H PRN PRN Reason: Nausea/Vomiting Last Admin: 09/23/18 11:20 Dose: 4 mg Quetiapine Fumarate (Seroquel) 25 mg PO DAILY [facility]; Protocol PRN Reason: agitation/psychosis/restlessne Last Admin: 09/25/18 22:50 Dose: 25 mg Results - Vital Signs Recent Vital Signs: Last Vital Signs Temp 98.6 F 09/26/18 08:16 Pulse 91 H 09/26/18 08:49 Resp 20 09/26/18 08:16 BP 105/49 L 09/26/18 08:49 Pulse Ox 99 09/26/18 08:16 - Labs Result Diagrams: 09/25/18 08:28 09/25/18 08:28 Labs: Laboratory Results - last 24 hr 09/25/18 09/25/18 09/26/18 16:00 21:26 07:23 POC Glucose (mg/dL) 303 H 281 H 249 H 09/26/18 11:04 POC Glucose (mg/dL) 329 H Attending/Attestation - Attestation I have personally seen and examined this patient.: Yes I have fully participated in the care of the patient.: Yes I have reviewed all pertinent clinical information: Yes
[2018-09-26] MEDS: Magnesium Hydroxide Susp 30 ml UD PO PRN (10:33)
--- NOTE | 2018-09-26 11:08 | CP.PCM.PN ---
Subjective - Date & Time of Evaluation Date of Evaluation: 09/26/18 Time of Evaluation: 07:10 - Subjective Subjective: Lying in bed, Awake, alert, no distress Reason for consultation and follow up:Cardiac evaluation of new onset atrial fibrillation, on Eliquis Seen and examined by me and Dr. Joiner Objective - Vital Signs/Intake and Output Vital Signs (last 24 hours): Temp Pulse Resp BP Pulse Ox 98.6 F 91 H 20 105/49 L 99 09/26/18 08:16 09/26/18 08:49 09/26/18 08:16 09/26/18 08:49 09/26/18 08:16 Intake and Output: 09/26/18 09/26/18 06:59 18:59 Intake Total 900 Output Total 200 Balance 700 - Medications Medications: Current Medications Albuterol/Ipratropium (Duoneb 3 Mg/0.5 Mg (3 Ml) Ud) 3 ml IH Q2H PRN PRN Reason: Shortness of Breath Alprazolam (Xanax) 0.25 mg PO TID [facility]; Protocol Stop: 10/01/18 18:01 Last Admin: 09/26/18 10:08 Dose: 0.25 mg Apixaban (Eliquis) 5 mg PO BID [facility]; Protocol Last Admin: 09/26/18 10:08 Dose: 5 mg Aspirin (Ecotrin) 81 mg PO DAILY [facility] Last Admin: 09/26/18 10:07 Dose: 81 mg Atorvastatin Calcium (Lipitor) 40 mg PO DIN [facility] Last Admin: 09/25/18 17:19 Dose: 40 mg Cefpodoxime Proxetil (Vantin) 200 mg PO Q12 [facility] Last Admin: 09/26/18 10:08 Dose: 200 mg Docusate Sodium (Colace) 100 mg PO DAILY [facility] Last Admin: 09/26/18 10:07 Dose: 100 mg Escitalopram Oxalate (Lexapro) 10 mg PO HS [facility] Last Admin: 09/25/18 22:09 Dose: 10 mg Glipizide (Glucotrol) 10 mg PO BID [facility] Last Admin: 09/26/18 10:08 Dose: 10 mg Insulin Human Regular (Humulin R Low) 0 units SC ACHS [facility]; Protocol Last Admin: 09/26/18 08:51 Dose: 2 units Magnesium Hydroxide (Milk Of Magnesia) 30 ml PO DAILY PRN PRN Reason: Constipation Last Admin: 09/26/18 10:33 Dose: 30 ml Magnesium Oxide (Mag-Ox) 400 mg PO BID [facility] Last Admin: 09/22/18 18:00 Dose: Not Given Metoprolol Succinate (Toprol Xl) 25 mg PO BRK [facility] Last Admin: 09/26/18 08:49 Dose: 25 mg Ondansetron HCl (Zofran Inj) 4 mg IVP Q4H PRN PRN Reason: Nausea/Vomiting Last Admin: 09/23/18 11:20 Dose: 4 mg Quetiapine Fumarate (Seroquel) 25 mg PO DAILY PRN; Protocol PRN Reason: agitation/psychosis/restlessne Last Admin: 09/25/18 22:50 Dose: 25 mg - Labs Labs: 09/25/18 08:28 09/25/18 08:28 PT 12.9 SECONDS (9.4-12.5) H 09/23/18 06:10 INR 1.14 09/23/18 06:10 APTT 29.3 Seconds (26.9-38.3) 09/25/18 08:15 - Constitutional Appears: Non-toxic, No Acute Distress - Head Exam Head Exam: NORMAL INSPECTION, NORMOCEPHALIC - Eye Exam Eye Exam: Normal appearance Pupil Exam: NORMAL ACCOMODATION - ENT Exam ENT Exam: Mucous Membranes Moist, Normal Exam - Respiratory Exam Respiratory Exam: Decreased Breath Sounds, Clear to Ausculation Bilateral, NORMAL BREATHING PATTERN - Cardiovascular Exam Cardiovascular Exam: +S1, +S2 - GI/Abdominal Exam GI & Abdominal Exam: Soft, Normal Bowel Sounds - Extremities Exam Extremities Exam: Full ROM Additional comments: left BKA - Neurological Exam Neurological Exam: Alert, Awake Additional comments: confuse - Skin Skin Exam: Dry, Normal Color, Warm Assessment and Plan - Assessment and Plan (Free Text) Assessment: A 68 year old female who was brought to the ER due to altered mental status/ TIA symptoms. Family reported of sudden episode of AMS with associated aphasia, not following commands or speaking. In ER, symptoms resolved and back to baseline. History of coronary artery disease post CABG many years ago, on Plavix and Aspirin,hypertension, multiple TIA's,dementia, diabetes,hyperlipidemia,colonic polyps, peripheral vascular disease, post left below knee amputation.While in telemetry, patient went into rapid atrial fibrillation. New onset atrial fibrillation rate controlled. On Plavix and Aspirin. Patient has breakthrough TIA symptoms inspite of Plavix and ASA as anticoagulation, On Heparin and Coumadin and Plavix discontinued and put on Eliquis. Echo done and showed mild to moderate concentric LVH, LVEF 60-65%,Trace AR/TR, moderate mitral regurgitation. Cardiac status stable. Discharge planning. May discharge from cardiac standpoint.Psych on consult. refusing rehab placement, confuse at times. Plan: No distress Confuse at times Cardiac status stable Heart rate controlled, 70's Continue on Aspirin and Eliquis Blood pressure controlled On ASA 81 mg daily,Lipitor 20 mg daily,Eliquis 5 mg BID Lopressor 25 mg daily, Continue current treatment Continue current medications Discharge planning. May discharge from cardiac standpoint. Will follow up Plan and treatment discussed with Dr. Joiner
[2018-09-26 16:59] LABS: HEMOGLOBIN 10.7 g/dL (12.0-16.0); MEAN CELL VOLUME 88.7 fl (80.0-105.0); MEAN CORPUSCULAR HEMOGLOBIN 28.7 pg (25.0-35.0); MEAN CORPUSCULAR HGB CONC 32.3 g/dl (31.0-37.0); MEAN PLATELET VOLUME 10.9 fl (7.0-11.0); RBC 3.73 10^6/uL (3.5-6.1)
[2018-09-26 17:23] LABS: TROPONIN I 0.01 ng/mL
[2018-09-26 17:28] LABS: ALB/GLOB RATIO 1.2 (1.1-1.8); ALBUMIN 3.9 g/dL (3.0-4.8); ALT/SGPT 28 U/L (7-56); AST/SGOT 28 U/L (14-36); BLOOD UREA NITROGEN 16 mg/dL (7-21); CALCIUM 8.9 mg/dL (8.4-10.5); GFR NON-AFRICAN AMERICAN > 60
--- NOTE | 2018-09-26 20:20 | CON ---
DATE: 09/26/2018 HISTORY OF PRESENT ILLNESS: The patient is a 68-year-old female with a history of dementia who Psychiatry has been following on the medical floor and evaluating any change because of periods of confusion and agitation. I reviewed Dr. Verdugo's consultations since 09/23/2018, which indicate that patient has demonstrated change in mental status and that she has not been able to correctly identify her and has periods of confusion. Apparently, the patient does not suffer from depression, anxiety, or psychosis. Dr. Verdugo spoke with the patient's as well as the patient's daughter, Hannah who is POA and confirmed the patient's medications. According to Dr. Verdugo's report and recent nursing reports as well, the patient has continued to be restless, anxious and confused on the unit and any meaningful conversations were not possible as of yesterday. I met with the patient at bedside this morning and her presentation has not improved a great deal, she is unable to provide the information regarding correct location, keeps repeating "sink the towel." The patient also yells intermittently in the middle of my questioning, appears to be annoyed and unwilling to respond to my questioning. Does not appear to be in any physical distress. She denies wishes; however, she is unable to discuss her current mental functioning and is difficult to redirect and orient her as her focus is very inconsistent and poor. Labs reviewed. Vitals were reviewed. RELEVANT PSYCHIATRIC MEDICATIONS: Include Xanax 0.5 mg three times a day, which the patient received 3 doses yesterday on 09/25/2018, Seroquel 25 mg p.o. daily, which the patient received one dose on the 09/23/2018 and the other on 09/24/2018 the other on the 09/25/2018. IMPRESSION: The patient has a history of dementia which was diagnosed about a year ago. Presentation is very likely complicated with symptoms of delirium secondary to urinary tract infection. RECOMMENDATIONS: We will continue with current medications. Xanax was recently increased 3 times a day yesterday. Seroquel should help; however, the delirium can take weeks to resolve even after medical issues have resolved. Psychiatry will continue to follow up. Next followup would be in 2 days on 09/28/2018. Please re-consult if there are any acute changes in the patient's presentation. We will follow up peripherally. Jessica Bae MD
--- NOTE | 2018-09-27 01:38 | PN ---
DATE: 09/26/2018 SUBJECTIVE: The patient has no complaints of any chest pain. No shortness of breath. No headache. She is confused and agitated. She does scream at times. PHYSICAL EXAMINATION: VITAL SIGNS: Temperature is 98.6, pulse of 106, blood pressure is 124/68, respirations 20. GENERAL: The patient is lying in bed, flat, comfortable. HEENT: No oral lesion. Anicteric sclerae. Moist mucosa. NECK: No JVD, adenopathy, or thyromegaly. CARDIOVASCULAR: S1 and S2, regular. No murmurs, rubs, or gallops. LUNGS: Clear to auscultation bilaterally. No wheeze, rales, or rhonchi. ABDOMEN: Bowel sounds are positive. Soft, nontender, nondistended. EXTREMITIES: No cyanosis, clubbing, or edema. LABORATORY DATA: White count is 15, hemoglobin is 10.7, creatinine is 0.9. ASSESSMENT: 1. Delirium. 2. Acute cerebrovascular accident. 3. Hypertension. 4. Dyslipidemia. 5. Diabetic neuropathy. 6. Diabetes type 2. 7. Coronary artery disease status post coronary artery bypass graft. 8. Left below-knee amputation. 9. Depression. 10. Anemia, chronic. PLAN: The patient is currently on Lipitor for dyslipidemia. She is on one-to-one. She does get agitated at times. The patient is on Eliquis for anticoagulation. She is going to be on insulin sliding scale for her diabetes. She is being followed by Dr. Joiner from Cardiology, appreciate his input. She is on aspirin daily for coronary artery disease. She is on Glucotrol for her diabetes. She is on Lipitor for her dyslipidemia. She is on Lexapro for her anxiety. She is on Vantin for her UTI secondary to E. coli. Dionicio Lyons MD
--- NOTE | 2018-09-27 08:05 | CP.PCM.PN ---
Subjective - Date & Time of Evaluation Date of Evaluation: 09/27/18 Time of Evaluation: 06:45 - Subjective Subjective: No distress,Lying in bed, Awake, alert Reason for consultation and follow up:Cardiac evaluation of new onset atrial fibrillation, on Eliquis Seen and examined by me and Dr. Joiner Objective - Vital Signs/Intake and Output Vital Signs (last 24 hours): Temp Pulse Resp BP Pulse Ox 98.6 F 106 H 20 124/58 L 99 09/26/18 16:10 09/26/18 16:10 09/26/18 16:10 09/26/18 16:10 09/26/18 16:10 - Medications Medications: Current Medications Albuterol/Ipratropium (Duoneb 3 Mg/0.5 Mg (3 Ml) Ud) 3 ml IH Q2H PRN PRN Reason: Shortness of Breath Alprazolam (Xanax) 0.25 mg PO TID [facility]; Protocol Stop: 10/01/18 18:01 Last Admin: 09/26/18 17:47 Dose: 0.25 mg Apixaban (Eliquis) 5 mg PO BID [facility]; Protocol Last Admin: 09/26/18 17:46 Dose: 5 mg Aspirin (Ecotrin) 81 mg PO DAILY [facility] Last Admin: 09/26/18 10:07 Dose: 81 mg Atorvastatin Calcium (Lipitor) 40 mg PO DIN [facility] Last Admin: 09/26/18 17:48 Dose: 40 mg Cefpodoxime Proxetil (Vantin) 200 mg PO Q12 [facility] Last Admin: 09/26/18 22:00 Dose: Not Given Docusate Sodium (Colace) 100 mg PO DAILY [facility] Last Admin: 09/26/18 10:07 Dose: 100 mg Escitalopram Oxalate (Lexapro) 10 mg PO HS [facility] Last Admin: 09/26/18 22:00 Dose: Not Given Glipizide (Glucotrol) 10 mg PO BID [facility] Last Admin: 09/26/18 17:46 Dose: 10 mg Insulin Human Regular (Humulin R Low) 0 units SC [facility]; Protocol Last Admin: 09/26/18 22:00 Dose: 3 units Magnesium Hydroxide (Milk Of Magnesia) 30 ml PO DAILY PRN PRN Reason: Constipation Last Admin: 09/26/18 10:33 Dose: 30 ml Magnesium Oxide (Mag-Ox) 400 mg PO BID [facility] Last Admin: 09/22/18 18:00 Dose: Not Given Metoprolol Succinate (Toprol Xl) 25 mg PO BRK [facility] Last Admin: 09/26/18 08:49 Dose: 25 mg Ondansetron HCl (Zofran Inj) 4 mg IVP Q4H PRN PRN Reason: Nausea/Vomiting Last Admin: 09/23/18 11:20 Dose: 4 mg Quetiapine Fumarate (Seroquel) 25 mg PO DAILY PRN; Protocol PRN Reason: agitation/psychosis/restlessne Last Admin: 09/25/18 22:50 Dose: 25 mg - Labs Labs: 09/26/18 16:50 09/26/18 16:50 PT 12.9 SECONDS (9.4-12.5) H 09/23/18 06:10 INR 1.14 09/23/18 06:10 APTT 29.3 Seconds (26.9-38.3) 09/25/18 08:15 - Constitutional Appears: Non-toxic, No Acute Distress - Head Exam Head Exam: NORMAL INSPECTION, NORMOCEPHALIC - Eye Exam Eye Exam: Normal appearance Pupil Exam: NORMAL ACCOMODATION - ENT Exam ENT Exam: Mucous Membranes Moist, Normal Exam - Respiratory Exam Respiratory Exam: Decreased Breath Sounds, NORMAL BREATHING PATTERN - Cardiovascular Exam Cardiovascular Exam: +S1, +S2 - GI/Abdominal Exam GI & Abdominal Exam: Soft, Normal Bowel Sounds - Extremities Exam Extremities Exam: Full ROM Additional comments: left below knee amputation - Neurological Exam Neurological Exam: Alert, Awake - Psychiatric Exam Psychiatric exam: Normal Affect, Normal Mood - Skin Skin Exam: Dry, Normal Color Assessment and Plan - Assessment and Plan (Free Text) Assessment: A 68 year old female who was brought to the ER due to altered mental status/ TIA symptoms. Family reported of sudden episode of AMS with associated aphasia, not following commands or speaking. In ER, symptoms resolved and back to baseline. History of coronary artery disease post CABG many years ago, on Plavix and Aspirin,hypertension, multiple TIA's,dementia, diabetes,hyperlipidemia,colonic polyps, peripheral vascular disease, post left below knee amputation.While in telemetry, patient went into rapid atrial fibrillation. New onset atrial fibrillation rate controlled. On Plavix and Aspirin. Patient has breakthrough TIA symptoms inspite of Plavix and ASA as anticoagulation, On Heparin and Coumadin and Plavix discontinued and put on Eliquis. Echo done and showed mild to moderate concentric LVH, LVEF 60-65%,Trace AR/TR, moderate mitral regurg itation.Confuse, Evaluated by Psych- delirium. refusing rehab placement. Cardiac status stable. Discharge planning. Plan: No distress, Confuse Cardiac status stable Heart rate controlled, 70's Blood pressure controlled On ASA 81 mg daily,Lipitor 20 mg daily, Eliquis 5 mg BID Lopressor 25 mg daily Continue current treatment Continue current medications Discharge planning Control glucose May discharge from cardiac standpoint Will follow up Plan and treatment discussed with Dr. Joiner
[2018-09-27] MEDS: Insulin Reg-LOW-Coverage SC SCH ×4 (10:13→22:47)
[2018-09-27] MEDS: Cefpodoxime (Vantin) 200 mg Tab PO SCH ×2 (10:14→22:45)
[2018-09-27] MEDS: Metoprolol Succinate 25 mg XL Tab PO SCH (10:15)
--- NOTE | 2018-09-27 22:18 | PN ---
DATE: 09/27/2018 SUBJECTIVE: The patient is 68 years old, seen and examined, lying in bed, seems to be comfortable. Her is by the bedside. According to nurse, she has periods of confusion but currently offered no complaint. PHYSICAL EXAMINATION: VITAL SIGNS: She is afebrile. Pulse 104, respirations 20, blood pressure 125/ . LUNGS: Bilateral fair airflow. No rhonchi or crackle. HEART: S1 and S2 audible. ABDOMEN: Soft, nontender. No rebound. No guarding. NEUROLOGIC: She is awake and alert, able to communicate. EXTREMITIES: She is status post a left BKA. Right leg, no edema. LABORATORY DATA: WBC is 15, hemoglobin 10.7, hematocrit 33, and platelets of 204. Chemistries: Sodium 133, potassium 4.5, chloride 96, CO2 of 27, BUN of 16, creatinine 0.9, blood sugar of 304. ASSESSMENT: 1. Acute cerebrovascular accident with periods of confusion. 2. Hze-lxhcxlb-vcebxiius diabetes. 3. Coronary artery disease status post open heart surgery. 4. History of depression. 5. Chronic anemia. 6. Escherichia coli urinary tract infection. 7. Hyperlipidemia. 8. History of depression. PLAN: Currently, the patient is on nebulizer treatment as needed. She is on Eliquis. She is on Glucotrol 10 mg twice a day. She is on insulin coverage. She is on statin. She is on Vantin that need to be renewed. As per nurse, she gets agitated at times and screams and yells. So, I will put her on Ativan 0.5 every 6 hours p.r.n. for agitation. Constantino Lozada MD
--- NOTE | 2018-09-28 07:29 | CP.PCM.PN ---
Subjective - Date & Time of Evaluation Date of Evaluation: 09/28/18 Time of Evaluation: 06:33 - Subjective Subjective: Lying in bed, Awake, alert, no distress Reason for consultation and follow up:Cardiac evaluation of new onset atrial fibrillation, on Eliquis Seen and examined by me and Dr. Ron Objective - Vital Signs/Intake and Output Vital Signs (last 24 hours): Temp Pulse Resp BP Pulse Ox 98.9 F 104 H 20 125/70 95 09/27/18 15:58 09/27/18 15:58 09/27/18 15:58 09/27/18 15:58 09/27/18 15:58 - Medications Medications: Current Medications Albuterol/Ipratropium (Duoneb 3 Mg/0.5 Mg (3 Ml) Ud) 3 ml IH Q2H PRN PRN Reason: Shortness of Breath Alprazolam (Xanax) 0.25 mg PO TID [facility]; Protocol Stop: 10/01/18 18:01 Last Admin: 09/27/18 17:14 Dose: 0.25 mg Apixaban (Eliquis) 5 mg PO BID [facility]; Protocol Last Admin: 09/27/18 17:15 Dose: 5 mg Aspirin (Ecotrin) 81 mg PO DAILY [facility] Last Admin: 09/27/18 10:14 Dose: 81 mg Atorvastatin Calcium (Lipitor) 40 mg PO DIN [facility] Last Admin: 09/27/18 17:14 Dose: 40 mg Cefpodoxime Proxetil (Vantin) 200 mg PO Q12 [facility] Last Admin: 09/27/18 22:45 Dose: 200 mg Docusate Sodium (Colace) 100 mg PO DAILY [facility] Last Admin: 09/27/18 10:14 Dose: 100 mg Escitalopram Oxalate (Lexapro) 10 mg PO HS [facility] Last Admin: 09/27/18 21:58 Dose: 10 mg Glipizide (Glucotrol) 10 mg PO BID [facility] Last Admin: 09/27/18 17:15 Dose: 10 mg Insulin Human Regular (Humulin R Low) 0 units SC [facility]; Protocol Last Admin: 09/27/18 22:47 Dose: Not Given Lorazepam (Ativan) 0.5 mg IVP Q6H PRN; Protocol PRN Reason: Anxiety Last Admin: 09/27/18 20:24 Dose: 0.5 mg Magnesium Hydroxide (Milk Of Magnesia) 30 ml PO DAILY PRN PRN Reason: Constipation Last Admin: 09/26/18 10:33 Dose: 30 ml Magnesium Oxide (Mag-Ox) 400 mg PO BID [facility] Last Admin: 09/22/18 18:00 Dose: Not Given Metoprolol Succinate (Toprol Xl) 25 mg PO BRK [facility] Last Admin: 09/27/18 10:15 Dose: 25 mg Ondansetron HCl (Zofran Inj) 4 mg IVP Q4H PRN PRN Reason: Nausea/Vomiting Last Admin: 09/23/18 11:20 Dose: 4 mg Quetiapine Fumarate (Seroquel) 25 mg PO DAILY [facility]; Protocol PRN Reason: agitation/psychosis/restlessne Last Admin: 09/27/18 21:58 Dose: 25 mg - Labs Labs: 09/26/18 16:50 09/26/18 16:50 PT 12.9 SECONDS (9.4-12.5) H 09/23/18 06:10 INR 1.14 09/23/18 06:10 APTT 29.3 Seconds (26.9-38.3) 09/25/18 08:15 - Constitutional Appears: Non-toxic, No Acute Distress - Head Exam Head Exam: NORMAL INSPECTION, NORMOCEPHALIC - Eye Exam Eye Exam: Normal appearance Pupil Exam: NORMAL ACCOMODATION - ENT Exam ENT Exam: Mucous Membranes Moist, Normal Exam - Respiratory Exam Respiratory Exam: Decreased Breath Sounds, Clear to Ausculation Bilateral, NORMAL BREATHING PATTERN - Cardiovascular Exam Cardiovascular Exam: +S1, +S2 - GI/Abdominal Exam GI & Abdominal Exam: Soft, Normal Bowel Sounds - Extremities Exam Extremities Exam: Full ROM Additional comments: left below knee amputation - Neurological Exam Neurological Exam: Alert, Awake - Psychiatric Exam Psychiatric exam: Normal Affect, Normal Mood - Skin Skin Exam: Dry, Normal Color, Warm Assessment and Plan - Assessment and Plan (Free Text) Assessment: A 68 year old female who was brought to the ER due to altered mental status/ TIA symptoms. Family reported of sudden episode of AMS with associated aphasia, not following commands or speaking. In ER, symptoms resolved and back to baseline. History of coronary artery disease post CABG many years ago, on Plavix and Aspirin,hypertension, multiple TIA's,dementia, diabetes,hyperlipidemia,colonic polyps, peripheral vascular disease, post left below knee amputation.While in telemetry, patient went into rapid atrial fibrillation. New onset atrial fibrillation rate controlled. On Plavix and Aspirin. Patient has breakthrough TIA symptoms inspite of Plavix and ASA as anticoagulation, On Heparin and Coumadin and Plavix discontinued and put on Eliquis. Echo done and showed mild to moderate concentric LVH, LVEF 60-65%,Trace AR/TR, moderate mitral regurgitation. Confusion and agitated at times. PRN Ativan. Evaluated by Psychiatry. Cardiac status stable. Discharge planning. Plan: No distress Cardiac status stable Heart rate stable Blood pressure controlled On ASA 81 mg daily,Lipitor 20 mg daily, Eliquis 5 mg BID Lopressor 25 mg daily Continue current treatment Continue current medications Discharge planning Control glucose Will follow up Plan and treatment discussed with Dr. Ron
[2018-09-28 08:08] VITALS: RESP 18
[2018-09-28] MEDS: Insulin Reg-LOW-Coverage SC SCH ×3 (10:37→17:10)
[2018-09-28] MEDS: Metoprolol Succinate 25 mg XL Tab PO SCH (10:43)
[2018-09-28] MEDS: Cefpodoxime (Vantin) 200 mg Tab PO SCH ×2 (10:43→21:59)
[2018-09-28] MEDS: Magnesium Hydroxide Susp 30 ml UD PO PRN (10:44)
--- NOTE | 2018-09-28 13:51 | PN ---
DATE: 09/28/2018 SUBJECTIVE: The patient is a 68-year-old female multiple medical issues. Please see admission note for more detailed information. This brief writer got involved into the patient's care because of delirium stage dementia and restless behavior. The patient was evaluated by this brief writer for past week and over the weekend Dr. Bae saw this patient. The patient was seen today. The patient presented better to compare with the last week. The patient knows that she is in [facility]. The patient did not exhibit any aggressive or agitated behavior. The patient takes Seroquel only once a day to compare to twice a day prior to admission. Besides that the patient is on Xanax. Based on report from the nursing staff, the patient did not exhibit any aggressive or agitated behavior for past 2 days. OBJECTIVE: VITAL SIGNS: Reviewed. Temperature 98.5, pulse is 80, blood pressure 143/61, respirations 18, oxygen saturation is 97. MEDICATIONS: Reviewed. The patient is on DuoNeb, Xanax 0.5 mg three times a day as needed. The patient is on Eliquis, aspirin, Lipitor, Vantin, Colace, Lexapro 10 mg at the nighttime, Levemir, glipizide, Humulin, Ativan 0.5 mg IV push every 6 hours last dose was yesterday at 8:00. The patient is on magnesium oxide, Toprol, Zofran, Seroquel 25 mg daily as needed last dose was yesterday at the evening time, altogether the patient got only four doses of Seroquel. LABORATORY DATA: Reviewed. Most recent was from 09/26/2018 leukocytosis; urinalysis showed urinary tract infection. Microbiology positive for E. coli in the urine. MENTAL STATUS EXAM: The patient was alert, pleasant, cooperative one-word answers only. The patient knows that she is in [facility], intermittent eye contact. Mood described as okay. Affect was constricted, but reactive. Thought process concrete. Thought content, the patient at times confabulates. Insight and judgment seems to be limited. Impulses are better controlled. The patient denied hearing voices, denied seeing things, denied thoughts of harming herself or others. The patient presented much better. IMPRESSION: Delirium on dementia, but the patient delirium is improving. PLAN: Seroquel 25 mg a day only as needed for agitated and psychotic behavior. Xanax is three times a day as needed for anxiety. The patient is improving, family involved. This brief writer educated family, the patient has her power of family law attorney and her daughter and this brief writer educated family about the treatment plan and about medications, family were appreciated. Besides that there is no acute issues. This brief writer will follow up on this patient every other day. Please call or call me back if behavior changed. Should you have any questions give me a call back. Stefania Verdugo MD
--- NOTE | 2018-09-28 14:43 | CP.PCM.PN ---
<Gonzales Man - Last Filed: 09/28/18 14:58> Subjective - Date & Time of Evaluation Date of Evaluation: 09/28/18 Time of Evaluation: 07:20 - Subjective Subjective: Gonzales Man D.O. PGY-3, Internal Medicine Resident, Dr. Lyons Service Progress Note 68 year old female with a PMH of multiple TIAs, HTN, DM2 with neuropathy, HLD, CAD s/p CABG who presented for reports of sudden episode of AMS with associated aphasia, not following commands or speaking. Patient was seen and examined at bedside. Still somewhat confused at times. Multiple family members and friends at bedside. Appears comfortable. Objective - Vital Signs/Intake and Output Vital Signs (last 24 hours): Temp Pulse Resp BP Pulse Ox 98.5 F 80 18 143/61 97 09/28/18 08:07 09/28/18 10:43 09/28/18 08:07 09/28/18 10:43 09/28/18 08:07 - Medications Medications: Current Medications Albuterol/Ipratropium (Duoneb 3 Mg/0.5 Mg (3 Ml) Ud) 3 ml IH Q2H PRN PRN Reason: Shortness of Breath Alprazolam (Xanax) 0.5 mg PO TID PRN; Protocol PRN Reason: Anxiety Last Admin: 09/28/18 11:03 Dose: 0.5 mg Apixaban (Eliquis) 5 mg PO BID [facility]; Protocol Last Admin: 09/28/18 10:44 Dose: 5 mg Aspirin (Ecotrin) 81 mg PO DAILY [facility] Last Admin: 09/28/18 10:45 Dose: 81 mg Atorvastatin Calcium (Lipitor) 40 mg PO DIN [facility] Last Admin: 09/27/18 17:14 Dose: 40 mg Cefpodoxime Proxetil (Vantin) 200 mg PO Q12 [facility] Last Admin: 09/28/18 10:43 Dose: 200 mg Docusate Sodium (Colace) 100 mg PO DAILY [facility] Last Admin: 09/28/18 10:43 Dose: 100 mg Escitalopram Oxalate (Lexapro) 10 mg PO HS [facility] Last Admin: 09/27/18 21:58 Dose: 10 mg Glipizide (Glucotrol) 10 mg PO BID [facility] Last Admin: 09/28/18 10:43 Dose: 10 mg Insulin Detemir (Levemir) 5 unit SC [facility] Insulin Human Regular (Humulin R Low) 0 units SC [facility]; Protocol Last Admin: 09/28/18 10:41 Dose: Not Given Lorazepam (Ativan) 0.5 mg IVP Q6H PRN; Protocol PRN Reason: Anxiety Last Admin: 09/28/18 13:44 Dose: 0.5 mg Magnesium Hydroxide (Milk Of Magnesia) 30 ml PO DAILY PRN PRN Reason: Constipation Last Admin: 09/28/18 10:44 Dose: 30 ml Magnesium Oxide (Mag-Ox) 400 mg PO BID [facility] Last Admin: 09/22/18 18:00 Dose: Not Given Metoprolol Succinate (Toprol Xl) 25 mg PO BRK [facility] Last Admin: 09/28/18 10:43 Dose: 25 mg Ondansetron HCl (Zofran Inj) 4 mg IVP Q4H PRN PRN Reason: Nausea/Vomiting Last Admin: 09/23/18 11:20 Dose: 4 mg Quetiapine Fumarate (Seroquel) 25 mg PO DAILY PRN; Protocol PRN Reason: agitation/psychosis/restlessne Last Admin: 09/27/18 21:58 Dose: 25 mg - Labs Labs: 09/26/18 16:50 09/26/18 16:50 PT 12.9 SECONDS (9.4-12.5) H 09/23/18 06:10 INR 1.14 09/23/18 06:10 APTT 29.3 Seconds (26.9-38.3) 09/25/18 08:15 - Constitutional Appears: Non-toxic, Agitated (sporadically) - Head Exam Head Exam: ATRAUMATIC, NORMOCEPHALIC - Eye Exam Eye Exam: EOMI. absent: Scleral icterus - ENT Exam ENT Exam: Mucous Membranes Moist - Neck Exam Neck Exam: Normal Inspection. absent: Lymphadenopathy - Respiratory Exam Respiratory Exam: Clear to Ausculation Bilateral. absent: Rales, Rhonchi, Wheezes - Cardiovascular Exam Cardiovascular Exam: +S1, +S2. absent: Gallop, Rubs - GI/Abdominal Exam GI & Abdominal Exam: Soft, Normal Bowel Sounds. absent: Distended, Tenderness - Extremities Exam Extremities Exam: Normal Capillary Refill. absent: Joint Swelling - Neurological Exam Neurological Exam: Alert, Awake Additional comments: follows simple commands, speaks only a few words, moves all extremities spontaneously - Psychiatric Exam Psychiatric exam: Anxious - Skin Skin Exam: Dry, Intact, Warm Assessment and Plan - Assessment and Plan (Free Text) Assessment: 68 year old female with a PMH of multiple TIAs, HTN, DM2 with neuropathy, HLD, CAD s/p CABG who presented for reports of sudden episode of AMS with associated aphasia, not following commands or speaking. Plan: 1. Cerebrovascular accident 2. Atrial fibrillation, rate controlled and on anticoagulation 3. Urinary tract infection 4. Hypertension 5. Hyperlipidemia 6. Diabetes mellitus 7. Status post left BKA with prosthesis 8. Depression and anxiety Continue with aspirin and Eliquis. She continues to be on one-to-one as she sometimes gets agitated. Cardiology recommendations reviewed and appreciated. Started Levemir 5 units subcu at bedtime to optimize blood sugar control. Continue with insulin sliding scale. Increased alprazolam to 0.5 mg p.o. 3 times daily as needed anxiety. Continue Vantin for urinary tract infection. Psychiatry recommendations reviewed and appreciated. Extensive discussion was had with the patient's as well as the patient's daughter as to regards of her current prognosis as well as the plan for possible rehabilitation or possibly home. The daughter states that she has a lot of support including a homemaker who is with the patient very often as well as her father/patient's and herself and other family members. They feel that they could adequ ately take care of her she is unable to go to a rehab. Discussed with case management. Patient was seen and examined and case was discussed at length with attending physician. <Dionicio Lyons S - Last Filed: 09/28/18 21:16> Objective - Vital Signs/Intake and Output Vital Signs (last 24 hours): Temp Pulse Resp BP Pulse Ox 97.6 F 73 18 128/84 97 09/28/18 16:16 09/28/18 16:16 09/28/18 16:16 09/28/18 16:16 09/28/18 16:16 - Medications Medications: Current Medications Albuterol/Ipratropium (Duoneb 3 Mg/0.5 Mg (3 Ml) Ud) 3 ml IH Q2H PRN PRN Reason: Shortness of Breath Alprazolam (Xanax) 0.5 mg PO TID PRN; Protocol PRN Reason: Anxiety Last Admin: 09/28/18 17:07 Dose: 0.5 mg Apixaban (Eliquis) 5 mg PO BID [facility]; Protocol Last Admin: 09/28/18 17:07 Dose: 5 mg Aspirin (Ecotrin) 81 mg PO DAILY [facility] Last Admin: 09/28/18 10:45 Dose: 81 mg Atorvastatin Calcium (Lipitor) 40 mg PO DIN [facility] Last Admin: 09/28/18 17:06 Dose: 40 mg Cefpodoxime Proxetil (Vantin) 200 mg PO Q12 [facility] Last Admin: 09/28/18 10:43 Dose: 200 mg Docusate Sodium (Colace) 100 mg PO DAILY [facility] Last Admin: 09/28/18 10:43 Dose: 100 mg Escitalopram Oxalate (Lexapro) 10 mg PO [facility] Last Admin: 09/27/18 21:58 Dose: 10 mg Glipizide (Glucotrol) 10 mg PO BID [facility] Last Admin: 09/28/18 18:51 Dose: 10 mg Insulin Detemir (Levemir) 5 unit SC [facility] Insulin Human Regular (Humulin R Med) 0 units SC [facility]; Protocol Lorazepam (Ativan) 0.5 mg IVP Q6H PRN; Protocol PRN Reason: Anxiety Last Admin: 09/28/18 13:44 Dose: 0.5 mg Magnesium Hydroxide (Milk Of Magnesia) 30 ml PO DAILY PRN PRN Reason: Constipation Last Admin: 09/28/18 10:44 Dose: 30 ml Magnesium Oxide (Mag-Ox) 400 mg PO BID [facility] Last Admin: 09/22/18 18:00 Dose: Not Given Metoprolol Succinate (Toprol Xl) 25 mg PO K [facility] Last Admin: 09/28/18 10:43 Dose: 25 mg Ondansetron HCl (Zofran Inj) 4 mg IVP Q4H PRN PRN Reason: Nausea/Vomiting Last Admin: 09/23/18 11:20 Dose: 4 mg Quetiapine Fumarate (Seroquel) 25 mg PO DAILY PRN; Protocol PRN Reason: agitation/psychosis/restlessne Last Admin: 09/27/18 21:58 Dose: 25 mg - Labs Labs: 09/26/18 16:50 09/26/18 16:50 PT 12.9 SECONDS (9.4-12.5) H 09/23/18 06:10 INR 1.14 09/23/18 06:10 APTT 29.3 Seconds (26.9-38.3) 09/25/18 08:15 Assessment and Plan - Assessment and Plan (Free Text) Plan: Pt seen and examined by me. I have reviewed the note of the medical device sales representative and I agree with it. I have discussed the assessment and plan with the resident. I have reviewed the medications and the last labs.
[2018-09-28] MEDS ORDERED: Insulin Lispro 1 UNITS/0.01 ML SC STA (16:34)
[2018-09-28] MEDS: Insulin Reg-MEDIUM-Coverage SC SCH (21:58)
[2018-09-28] MEDS ORDERED: Insulin Detemir 100 units/ml Vial (Levemir) SC SCH (22:00)
--- NOTE | 2018-09-29 02:49 | PN ---
DATE: 09/28/2018 SUBJECTIVE: The patient was seen and examined. I do agree with the note of the vp medical. I was involved with plan of care. The patient was significantly agitated yesterday. I have increased her Xanax to help with her delirium. The patient was re-evaluated later in the morning and was more comfortable. She was able to work with physical therapy. ASSESSMENT AND PLAN: We will see if she is a candidate for acute rehab because of her cerebrovascular accident. She has been started on Levemir to help control her sugars better. The patient is on Seroquel. She is also being followed by Psychiatry. The patient's psychiatrist agrees with my current management. I spoke with social science research assistant regarding the case. The patient is on Lexapro for her anxiety. She is on magnesium replacement. She is on Lipitor for dyslipidemia. I will discontinue her magnesium at this point. Dionicio Lyons MD
[2018-09-29] MEDS ORDERED: Insulin Lispro 1 UNITS/0.01 ML SC STA (03:21)
--- NOTE | 2018-09-29 04:38 | CP.PCM.PN ---
Subjective - Date & Time of Evaluation Date of Evaluation: 09/29/18 Time of Evaluation: 04:38 - Subjective Subjective: S:I was asked to co-sign order :Insulin 10 Units SC x1. Patient's FSBS was 404 mg %. Patient is asymptomatic. Pertinent medical record was reviewed. O:VSS. Not in acute distress. LUNGS:Normal breathing pattern. A:Hyperglycemia. P:Regular insulin 10 Units SC stat. Objective - Vital Signs/Intake and Output Vital Signs (last 24 hours): Temp Pulse Resp BP Pulse Ox 97.6 F 73 18 128/84 97 09/28/18 16:16 09/28/18 16:16 09/28/18 16:16 09/28/18 16:16 09/28/18 16:16 - Medications Medications: Current Medications Albuterol/Ipratropium (Duoneb 3 Mg/0.5 Mg (3 Ml) Ud) 3 ml IH Q2H PRN PRN Reason: Shortness of Breath Alprazolam (Xanax) 0.5 mg PO TID PRN; Protocol PRN Reason: Anxiety Last Admin: 09/28/18 17:07 Dose: 0.5 mg Apixaban (Eliquis) 5 mg PO BID [facility]; Protocol Last Admin: 09/28/18 17:07 Dose: 5 mg Aspirin (Ecotrin) 81 mg PO DAILY [facility] Last Admin: 09/28/18 10:45 Dose: 81 mg Atorvastatin Calcium (Lipitor) 40 mg PO DIN [facility] Last Admin: 09/28/18 17:06 Dose: 40 mg Cefpodoxime Proxetil (Vantin) 200 mg PO Q12 [facility] Last Admin: 09/28/18 21:59 Dose: 200 mg Docusate Sodium (Colace) 100 mg PO DAILY [facility] Last Admin: 09/28/18 10:43 Dose: 100 mg Escitalopram Oxalate (Lexapro) 10 mg PO HS [facility] Last Admin: 09/28/18 21:59 Dose: 10 mg Glipizide (Glucotrol) 10 mg PO BID [facility] Last Admin: 09/28/18 18:51 Dose: 10 mg Insulin Detemir (Levemir) 5 unit SC [facility] Last Admin: 09/28/18 21:57 Dose: 5 units Insulin Human Regular (Humulin R Med) 0 units SC [facility]; Protocol Last Admin: 09/28/18 21:58 Dose: 2 units Lorazepam (Ativan) 0.5 mg IVP Q6H PRN; Protocol PRN Reason: Anxiety Last Admin: 09/28/18 13:44 Dose: 0.5 mg Magnesium Hydroxide (Milk Of Magnesia) 30 ml PO DAILY PRN PRN Reason: Constipation Last Admin: 09/28/18 10:44 Dose: 30 ml Metoprolol Succinate (Toprol Xl) 25 mg PO BRK [facility] Last Admin: 09/28/18 10:43 Dose: 25 mg Ondansetron HCl (Zofran Inj) 4 mg IVP Q4H PRN PRN Reason: Nausea/Vomiting Last Admin: 09/23/18 11:20 Dose: 4 mg Quetiapine Fumarate (Seroquel) 25 mg PO DAILY PRN; Protocol PRN Reason: agitation/psychosis/restlessne Last Admin: 09/28/18 22:03 Dose: 25 mg - Labs Labs: 09/26/18 16:50 09/26/18 16:50 PT 12.9 SECONDS (9.4-12.5) H 09/23/18 06:10 INR 1.14 09/23/18 06:10 APTT 29.3 Seconds (26.9-38.3) 09/25/18 08:15
[2018-09-29 06:32] LABS: BASO # 0.03 K/mm3 (0.0-2.0); BASO % 0.3 % (0.0-3.0); EOS # 0.3 (0.0-0.7); EOS % 3.1 % (1.5-5.0); HEMOGLOBIN 11.3 g/dL (12.0-16.0); LYMPH # 2.8 (1.2-3.4); LYMPH % 27.4 % (22.0-35.0); MEAN CELL VOLUME 87.3 fl (80.0-105.0); MEAN CORPUSCULAR HEMOGLOBIN 28.6 pg (25.0-35.0); MEAN CORPUSCULAR HGB CONC 32.8 g/dl (31.0-37.0); MEAN PLATELET VOLUME 11.4 fl (7.0-11.0); MONO # 0.6 (0.1-0.6); MONO % 5.5 % (1.0-6.0); RBC 3.95 10^6/uL (3.5-6.1); RED CELL DISTRIBUTION WIDTH 15.1 % (11.5-14.5); WHITE BLOOD COUNT 10.1 10^3/uL (4.5-11.0)
[2018-09-29 07:10] LABS: ALB/GLOB RATIO 1.1 (1.1-1.8); ALBUMIN 3.8 g/dL (3.0-4.8); ALT/SGPT 26 U/L (7-56); AST/SGOT 36 U/L (14-36); BLOOD UREA NITROGEN 24 mg/dL (7-21); CALCIUM 9.5 mg/dL (8.4-10.5); GFR NON-AFRICAN AMERICAN > 60
--- NOTE | 2018-09-29 07:11 | CP.PCM.PN ---
Subjective - Date & Time of Evaluation Date of Evaluation: 09/29/18 Time of Evaluation: 06:50 - Subjective Subjective: Lying in bed, no distress, Reason for consultation and follow up: Cardiac evaluation of new onset atrial fibrillation, on Eliquis, history of History of coronary artery disease post CABG many years ago,hypertension, multiple TIA's,dementia, diabetes,hyperlipidemia Seen and examined by me and Dr. Ron Objective - Vital Signs/Intake and Output Vital Signs (last 24 hours): Temp Pulse Resp BP Pulse Ox 97.6 F 73 18 128/84 97 09/28/18 16:16 09/28/18 16:16 09/28/18 16:16 09/28/18 16:16 09/28/18 16:16 - Medications Medications: Current Medications Albuterol/Ipratropium (Duoneb 3 Mg/0.5 Mg (3 Ml) Ud) 3 ml IH Q2H PRN PRN Reason: Shortness of Breath Alprazolam (Xanax) 0.5 mg PO TID PRN; Protocol PRN Reason: Anxiety Last Admin: 09/28/18 17:07 Dose: 0.5 mg Apixaban (Eliquis) 5 mg PO BID [facility]; Protocol Last Admin: 09/28/18 17:07 Dose: 5 mg Aspirin (Ecotrin) 81 mg PO DAILY [facility] Last Admin: 09/28/18 10:45 Dose: 81 mg Atorvastatin Calcium (Lipitor) 40 mg PO DIN [facility] Last Admin: 09/28/18 17:06 Dose: 40 mg Cefpodoxime Proxetil (Vantin) 200 mg PO Q12 [facility] Last Admin: 09/28/18 21:59 Dose: 200 mg Docusate Sodium (Colace) 100 mg PO DAILY [facility] Last Admin: 09/28/18 10:43 Dose: 100 mg Escitalopram Oxalate (Lexapro) 10 mg PO HS [facility] Last Admin: 09/28/18 21:59 Dose: 10 mg Glipizide (Glucotrol) 10 mg PO BID [facility] Last Admin: 09/28/18 18:51 Dose: 10 mg Insulin Detemir (Levemir) 5 unit SC HS [facility] Last Admin: 09/28/18 21:57 Dose: 5 units Insulin Human Regular (Humulin R Med) 0 units SC [facility]; Protocol Last Admin: 09/28/18 21:58 Dose: 2 units Lorazepam (Ativan) 0.5 mg IVP Q6H PRN; Protocol PRN Reason: Anxiety Last Admin: 09/28/18 13:44 Dose: 0.5 mg Magnesium Hydroxide (Milk Of Magnesia) 30 ml PO DAILY PRN PRN Reason: Constipation Last Admin: 09/28/18 10:44 Dose: 30 ml Metoprolol Succinate (Toprol Xl) 25 mg PO BRK [facility] Last Admin: 09/28/18 10:43 Dose: 25 mg Ondansetron HCl (Zofran Inj) 4 mg IVP Q4H PRN PRN Reason: Nausea/Vomiting Last Admin: 09/23/18 11:20 Dose: 4 mg Quetiapine Fumarate (Seroquel) 25 mg PO DAILY PRN; Protocol PRN Reason: agitation/psychosis/restlessne Last Admin: 09/28/18 22:03 Dose: 25 mg - Labs Labs: 09/29/18 06:00 09/26/18 16:50 PT 12.9 SECONDS (9.4-12.5) H 09/23/18 06:10 INR 1.14 09/23/18 06:10 APTT 29.3 Seconds (26.9-38.3) 09/25/18 08:15 - Constitutional Appears: Non-toxic, No Acute Distress - Head Exam Head Exam: NORMAL INSPECTION, NORMOCEPHALIC - Eye Exam Eye Exam: Normal appearance Pupil Exam: NORMAL ACCOMODATION - ENT Exam ENT Exam: Mucous Membranes Moist, Normal Exam - Respiratory Exam Respiratory Exam: Decreased Breath Sounds, Clear to Ausculation Bilateral, NORMAL BREATHING PATTERN - Cardiovascular Exam Cardiovascular Exam: +S1, +S2 - GI/Abdominal Exam GI & Abdominal Exam: Soft, Normal Bowel Sounds - Extremities Exam Extremities Exam: Full ROM Additional comments: left BKA - Neurological Exam Neurological Exam: Alert, Awake Additional comments: confuse - Skin Skin Exam: Normal Color, Warm Assessment and Plan - Assessment and Plan (Free Text) Assessment: A 68 year old female who was brought to the ER due to altered mental status/ TIA symptoms. Family reported of sudden episode of AMS with associated aphasia, not following commands or speaking. In ER, symptoms resolved and back to baseline. History of coronary artery disease post CABG many years ago, on Plavix and Aspirin,hypertension, multiple TIA's,dementia, diabetes,hyperlipidemia,colonic polyps, peripheral vascular disease, post left below knee amputation.While in telemetry, patient went into rapid atrial fibrillation. New onset atrial fibrillation rate controlled. On Plavix and Aspirin. Patient has breakthrough TIA symptoms inspite of Plavix and ASA as anticoagulation, On Heparin and Coumadin and Plavix discontinued and put on Eliquis. Echo done and showed mild to moderate concentric LVH, LVEF 60-65%,Trace AR/TR, moderate mitral regurgitation. Cardiac status stable. Discharge planning. Confusion and agitated at times. PRN Ativan. Glucose control. Plan: No distress Cardiac status stable Heart rate stable Blood pressure controlled On ASA 81 mg daily,Lipitor 20 mg daily, Eliquis 5 mg BID Lopressor 25 mg daily Continue current treatment Continue current medications Discharge planning Control glucose Will follow up Plan and treatment discussed with Dr. Ron
[2018-09-29] MEDS: Metoprolol Succinate 25 mg XL Tab PO SCH (08:00)
[2018-09-29] MEDS: Insulin Reg-MEDIUM-Coverage SC SCH (08:11)
[2018-09-29 08:12] VITALS: BP 131/64; PULSE 80; TEMP 98.3; O2SAT 94
[2018-09-29] MEDS ORDERED: Insulin Detemir 100 units/ml Vial (Levemir) SC SCH (08:34)
--- NOTE | 2018-09-29 09:35 | PN ---
DATE: 09/29/2018 SUBJECTIVE: The patient has no complaints of any chest pain, no shortness of breath, no headaches. PHYSICAL EXAMINATION: VITAL SIGNS: Temperature is 98.3, pulse of 80, blood pressure 131/64, respirations 18. GENERAL: The patient is lying in bed, flat, comfortable. HEENT: No oral lesion. Anicteric sclerae. Moist mucosa. NECK: No JVD, adenopathy, or thyromegaly. CARDIOVASCULAR: S1 and S2, regular. No murmurs, rubs, or gallops. LUNGS: Clear to auscultation bilaterally. No wheeze, rales, or rhonchi. ABDOMEN: Bowel sounds are positive, soft, nontender and nondistended. EXTREMITIES: No cyanosis, clubbing or edema. LABORATORY DATA: White count of 10.1, hemoglobin 11.3, creatinine 0.7. ASSESSMENT: 1. Delirium. 2. Cerebrovascular accident. 3. Atrial fibrillation on Eliquis. 4. Hypertension. 5. Dyslipidemia. 6. Diabetes type 2. 7. Left below knee amputation. 8. Anxiety. PLAN: The patient is currently on Colace. The patient want to continue with aspirin daily. Her glucose is elevated. I did start her on Levemir yesterday. I will increase her Levemir to 10 units. She is on Lipitor for dyslipidemia. She is receiving Lexapro for anxiety. Her Xanax was increased yesterday. The patient is on heart healthy diet. I will also restart her metformin. She is waiting for acute rehab evaluation and accepted. She will go if otherwise she may need to go to the Transitional Care Unit. Dionicio Lyons MD
--- NOTE | 2018-09-29 09:42 | CP.PCM.PCO ---
Physician Communication Note - Physician Communication Note Physician Communication Note: discussed plan of care with pmd, dispo: acute rehab vs tcu, will follow
[2018-09-29] MEDS: Cefpodoxime (Vantin) 200 mg Tab PO SCH (11:22)
--- NOTE | 2018-09-30 08:16 | RAD ---
Date of service: 09/24/2018 HISTORY: CONGESTION COMPARISON: 09/23/2018 TECHNIQUE: 1 view obtained. FINDINGS: LUNGS: No active pulmonary disease. PLEURA: No significant pleural effusion identified, no pneumothorax apparent. CARDIOVASCULAR: Aortic calcification Mild cardiomegaly moderate vascular and interstitial congestion OSSEOUS STRUCTURES: No significant abnormalities. VISUALIZED UPPER ABDOMEN: Normal. OTHER FINDINGS: None. IMPRESSION: Moderate vascular and interstitial congestion increased from prior exam
== END 2018-09-29 15:29 | DRG 65 ==
LOC: ED 20:33 → ERH 23:17 → 2RNO 09-22 00:32 → 3RSO 09-25 11:34 → 3RNO 09-25 18:53
PROVIDERS: ADMIT Internal Medicine Nephrology; ATTEND Internal Medicine Nephrology
DX: I63.9 Cerebral infarction, unspecified (principal); N39.0 Urinary tract infection, site not specified; G46.0 Middle cerebral artery syndrome; F05 Delirium due to known physiological condition; I10 Essential (primary) hypertension; F03.90 Unspecified dementia, unspecified severity, without behavioral disturbance, psychotic disturbance, mood disturbance, and anxiety; R29.810 Facial weakness; R47.01 Aphasia; R13.10 Dysphagia, unspecified; I48.91 Unspecified atrial fibrillation; K21.9 Gastro-esophageal reflux disease without esophagitis; I25.10 Atherosclerotic heart disease of native coronary artery without angina pectoris; E11.40 Type 2 diabetes mellitus with diabetic neuropathy, unspecified; F41.9 Anxiety disorder, unspecified; E11.51 Type 2 diabetes mellitus with diabetic peripheral angiopathy without gangrene; B96.20 Unspecified Escherichia coli [E. coli] as the cause of diseases classified elsewhere; E11.65 Type 2 diabetes mellitus with hyperglycemia; E78.5 Hyperlipidemia, unspecified; F32.9 Major depressive disorder, single episode, unspecified; R29.714 NIHSS score 14; D72.829 Elevated white blood cell count, unspecified; K59.00 Constipation, unspecified; D64.9 Anemia, unspecified; Z86.73 Personal history of transient ischemic attack (TIA), and cerebral infarction without residual deficits; Z95.1 Presence of aortocoronary bypass graft; Z79.4 Long term (current) use of insulin; Z89.512 Acquired absence of left leg below knee; Z79.82 Long term (current) use of aspirin; Z79.02 Long term (current) use of antithrombotics/antiplatelets; Z86.010 Personal history of colon polyps

== ENCOUNTER 2018-09-29 15:29 | Inpatient (IN) | payer OTHER, BC ==
[2018-09-29] MEDS ORDERED: Albuterol-Ipratrop 3 mg / 0.5 (3 ml) UD IH PRN (16:15)
[2018-09-29] MEDS ORDERED: Magnesium Hydroxide Susp 30 ml UD PO PRN (16:15)
[2018-09-29] MEDS ORDERED: Dextrose 50% SYRINGE Inj (50 ml) IV PRN (16:15)
[2018-09-29 16:39] VITALS: BMI 26.7
[2018-09-29] MEDS: Insulin Reg-MEDIUM-Coverage SC SCH ×2 (18:12→21:59)
[2018-09-29] MEDS: Cefpodoxime (Vantin) 200 mg Tab PO SCH (21:58)
[2018-09-29] MEDS: Insulin Detemir 100 units/ml Vial (Levemir) SC SCH (21:59)
[2018-09-30] MEDS: Insulin Reg-MEDIUM-Coverage SC SCH ×4 (06:47→23:27)
[2018-09-30] MEDS: Metoprolol Succinate 25 mg XL Tab PO SCH (09:00)
[2018-09-30] MEDS: Cefpodoxime (Vantin) 200 mg Tab PO SCH ×2 (09:57→22:00)
--- NOTE | 2018-09-30 20:03 | HP ---
DATE OF EXAM: 09/30/2018 CHIEF COMPLAINT AND HISTORY OF PRESENT ILLNESS: This is a 68-year-old female who is coming to the hospital after she was found to have an acute CVA in the emergency room. The patient had an MRI that showed an acute infarct in the left posterior temporal subcortical white matter. The patient was having episodes of confusion. Most of the information was taken from the medical records. She had a history of TIAs, hypertension, diabetes type 2 with neuropathy, dyslipidemia, coronary artery disease status post CABG. The patient had an NIH score that was 14 in the emergency room. Her symptoms had improved. The patient has no complaint of any chest pain or shortness of breath. During the hospital course she had delirium and that has improved as well. She has no fevers or chills. No nausea, no vomiting. She was not accepted to acute rehab and so Transitional Care Unit have accepted the patient. The patient's does not wish for her to go to subacute rehab side outside of TCU. REVIEW OF SYMPTOMS: She is feeling weak and is having difficulty in ambulating. She is eating well. All other review of symptoms are within normal limits except as mentioned. PAST MEDICAL HISTORY: 1. Coronary artery disease status post CABG. 2. Osteoarthritis. 3. GERD. 4. Dyslipidemia. 5. Diabetes type 2 with neuropathy. 6. Hypertension. 7. TIA. PAST SURGICAL HISTORY: 1. CABG. 2. A left BKA. 3. Cataracts. 4. A polypectomy. FAMILY HISTORY: Noncontributory. SOCIAL HISTORY: She does not smoke, drink or use drugs. HOME MEDICATIONS: Medications from the hospital were reviewed. Her home medications are Plavix, Lexapro, glipizide, metformin, Xanax, Colace. PHYSICAL EXAMINATION VITAL SIGNS: She has a temperature of 98.6, pulse of 80, respirations 12. GENERAL: The patient is lying in bed, comfortable and in no acute distress. HEENT: Atraumatic and normocephalic. Anicteric sclerae. Moist mucosa. Cisco conjunctivae. No oral lesions. NECK: No JVD, anterior and posterior adenopathy, thyromegaly or bruits. CARDIOVASCULAR: S1 and S2 regular. No murmurs, rubs or gallops. LUNGS: Clear to auscultation bilaterally. No wheezes, rales or rhonchi. ABDOMEN: Bowel sounds are positive. Soft, nontender and nondistended. No hepatosplenomegaly. No rebound and no guarding. EXTREMITIES: No cyanosis, clubbing or edema. Left leg with BKA. NEUROLOGIC: No facial asymmetry. Tongue is midline. No uvula deviation. Power is 5/5 in upper extremities and lower extremities. Sensation intact in upper extremities and lower extremities. PSYCHIATRIC: She is awake, alert and oriented x2. No anxiety or depression. She has normal affect. GENITOURINARY: No CVA tenderness. VASCULAR: 2+ pulses in the carotid pulses and pedal pulses. SKIN: No erythema or nodules. SPINE: Shows normal curvature. LABORATORY DATA: I have reviewed from the hospital are the following; The patient had blood work on 09/29/2018, showed a white count of 10.1, hemoglobin 11.3, platelet count is 280. She had a chemistry that showed a creatinine of 0.7. Her MRI showed an acute infarct in the left posterior temporal lobe. She had a chest x-ray that showed mild vascular interstitial congestion. An EKG shows atrial fibrillation with a rate of 81 with a QTC of 464. ASSESSMENT 1. Acute cerebrovascular accident of the left posterior temporal subcortical white matter. 2. Coronary artery disease. 3. Dyslipidemia. 4. Diabetes type 2. 5. Hypertension. 6. Osteoarthritis. 7. Anxiety. 8. Constipation. 9. Dyslipidemia. 10. Urinary tract infection secondary to Escherichia coli. 11. Atrial fibrillation, on Eliquis. PLAN: The patient is now on Transitional Care Unit. We will continue to get physical therapy. She is on Ativan IV, I will discontinue the patient's IV Ativan that she had. Her Xanax is increased. She is on Colace for constipation. The patient is on nebulizer treatments as needed. She is on aspirin daily. She is on Eliquis. She is on metformin for her diabetes. She is on Glucotrol for diabetes as well. She has been started on Levemir to better control her sugar. She is on Lipitor for dyslipidemia. She is on Seroquel for her agitation. She is on Vantin for antibiotics. She had a UTI secondary to E coli. She is receiving Zofran, I will discontinue the patient's Zofran. She is on a heart-healthy diet. Dionicio Lyons MD [facility] # [id number]
--- NOTE | 2018-09-30 21:25 | PN ---
DATE: 09/30/2018 SUBJECTIVE: The patient was transferred to TCU from medical floor. The patient was seen today for followup. The patient presented much better. The patient was able to participate in interview. The patient reported that she feels fine. The patient was friendly, no agitation, no aggression. The patient's private sitter is next to the patient and the patient's sitter reported that at the present moment, the patient presented much better and reported that at the present moment, the patient presented like normal herself. Sitter knows the patient for the past year and assured this information writer that the patient is at her baseline. PHYSICAL EXAMINATION: VITAL SIGNS: Reviewed. Pulse is 70 and blood pressure 106/63. MEDICATIONS: DuoNeb, Xanax 0.5 mg three times a day as needed, Eliquis, aspirin, Lipitor, Vantin, dextrose, Lexapro 10 mg at the nighttime, Levemir, Humalog, Toprol, and Seroquel. LABORATORY DATA: Labs reviewed. MENTAL STATUS EXAMINATION: The patient presented to be friendly. The patient knows that she is in the hospital. Intermittent eye contact. Mood described as good. Affect was reactive and mood congruent. Thought process seems to be mildly disorganized and confabulated. Thought content, the patient denied any psychotic symptoms. Denied visual, auditory or tactile hallucinations. Denied paranoid ideation. The patient does not present to be psychotic or suicidal or depressed. Insight and judgment seems to be impaired due to dementia and impulses are well controlled. IMPRESSION: Delirium, which is improving. Dementia is chronic. PLAN: Continue current management. Continue current medication. Seroquel was decreased by 50%. The patient needs to continue 50% of the Seroquel. The patient has a followup appointment with Dr. Victoria. Family involved. This information writer will sign off. Should you have any questions, give me a call back. This information writer has impression that the patient posed no imminent danger to self or others. Stefania Verdugo MD
[2018-09-30] MEDS: Insulin Detemir 100 units/ml Vial (Levemir) SC SCH (23:28)
--- NOTE | 2018-09-30 23:48 | CON ---
DATE: 09/30/2018 LOCATION: The patient is in room 314, bed 1. REASON FOR CONSULTATION: Coronary artery disease, history of COPD, atrial fibrillation, TIA, and dementia. HISTORY OF PRESENT ILLNESS: Patient seen on Medical Floor. Now admitted to TCU with Deconditioning. Patient 68-year-old female with past medical history of significant for TIA, dementia, diabetes, history of COPD many years ago, was on Plavix and aspirin, and presented to the emergency department with TIA like symptoms. Denies any chest pain or shortness of breath. While the patient was on telemetry, went into atrial fibrillation, rate was high. The patient is known to have hyperlipidemia, also had PAD, and history of amputation below knee, and BKA on the left leg. In the past, the patient also had multiple TIAs, hypertension, diabetes, history of GERD, cataract, and polyps. PERSONAL HISTORY: Denies drinking. Denies any smoking. HOME MEDICATIONS: Included atorvastatin 10 mg daily, Plavix 75 mg b.i.d., Lexapro 10 mg daily, glipizide 10 mg b.i.d., metformin 1000 mg b.i.d., Xanax 0.25 mg at bedtime, and Colace 100 mg daily. REVIEW OF SYSTEMS: All the systems reviewed, positive mentioned in the history. PHYSICAL EXAMINATION: VITAL SIGNS: Blood pressure 109/63, respirations 18, pulse 70, and afebrile. HEENT: Head is normocephalic. Eyes; pupils normal. Conjunctivae slightly pale. NECK: JVP low. Carotids equal. THORAX: AP diameter normal. LUNGS: Clear. CARDIOVASCULAR: S1 and S2. ABDOMEN: Soft and nontender. No organomegaly. Bowel sounds normal. EXTREMITIES: The patient has left leg below-knee amputation. No clubbing. No cyanosis. LABORATORY DATA: WBC 10.1, hemoglobin 11.3, hematocrit 34.5, and platelets 280. Random sugar 411 and earlier sugar was 205. Sodium 136, potassium 4.3, BUN 24, and creatinine 0.7. AST and ALT normal. EKG on admission showed normal sinus rhythm, the patient went into later on atrial fibrillation with rapid rate. IMPRESSION AND PLAN: The patient was on medical floor, now she is admitted to Transitional Care Unit for deconditioning. A 68-year-old female with past medical history of multiple transient ischemic attacks, diabetes, hypertension, hyperlipidemia, coronary artery disease, status post coronary artery bypass surgery, peripheral arterial disease, status post left below-knee amputation, admitted to Transitional Care Unit . The patient was in sinus rhythm, later on went into atrial fibrillation. The patient has dyslipidemia, anxiety, cerebrovascular accident, and delirium. The patient now in Transitional Care Unit for physical therapy. Atrial fibrillation, heart rate is controlled. Continue the patient on aspirin 81 mg daily, Eliquis 5 mg b.i.d., metformin 1000 mg b.i.d., glipizide 10 mg b.i.d., Lexapro 10 mg at bedtime, atorvastatin 40 mg daily, Seroquel 25 mg at bedtime, metoprolol succinate 25 mg daily, and continue physical therapy. We will follow with you. Alfred Joiner MD ISE[facility]
[2018-10-01] MEDS: Insulin Reg-MEDIUM-Coverage SC SCH ×4 (06:54→22:14)
[2018-10-01] MEDS: Metoprolol Succinate 25 mg XL Tab PO SCH (08:36)
[2018-10-01] MEDS: Cefpodoxime (Vantin) 200 mg Tab PO SCH ×2 (09:52→22:17)
--- NOTE | 2018-10-01 13:57 | PN ---
DATE: 10/01/2018 REASON FOR CONSULTATION: Coronary artery disease, COPD, atrial fibrillation, TIA possible, dementia, cardiac followup evaluation, follow up on the continuity of care in transitional care unit. SUBJECTIVE: The patient denies any chest pain, shortness of breath or any palpitations. PHYSICAL EXAMINATION: GENERAL: Not in apparent distress. VITAL SIGNS: Temperature afebrile, heart rate 74, blood pressure 114/70. HEENT: PERRLA. Extraocular muscles intact. NECK: Supple. No carotid bruits. No thyromegaly. CHEST: Clear to auscultation. HEART: S1, S2. Regular. ABDOMEN: Soft. EXTREMITIES: Clubbing, cyanosis negative. LABORATORY DATA: Blood workup as follows: Blood sugar 242. IMPRESSION: A 68-year-old female with past medical history significant for coronary artery disease, coronary artery bypass graft many years ago, history of dementia, history of severe peripheral arterial disease, status post below-knee amputation of extremity, history of multiple transient ischemic attacks, diabetes, hypertension, hyperlipidemia, peripheral arterial disease as mentioned, admitted here with altered mental status, later on went to atrial fibrillation. Now the patient is transferred to the transitional care unit. Because of history of multiple transient ischemic attacks and atrial fibrillation, the patient was started on Eliquis. RECOMMENDATIONS: Continue Eliquis, continue glipizide, continue metformin, continue baby aspirin, continue rehab. CV status is stable. Continue atorvastatin. We will follow with you. The patient had a recent echo on 09/23/2018 that revealed ejection fraction 65%, trace aortic regurgitation, moderate mitral regurgitation, trace tricuspid regurgitation, normal collapse in IVC. No pericardial effusion. Repeat EKG 09/23/2018, heart rate of 81, still in atrial fibrillation. So, we will continue Eliquis because of history of multiple transient ischemic attacks in the past as well as atrial fibrillation. Thank you, for providing us the opportunity in taking care of this patient, Lv Lyon. Alfred Ron MD
[2018-10-01] MEDS: Insulin Detemir 100 units/ml Vial (Levemir) SC SCH (22:15)
--- NOTE | 2018-10-02 02:02 | CON ---
DATE: 10/01/2018 HISTORY OF PRESENT ILLNESS: This is a 68-year-old female with past medical history of coronary artery disease, dementia, severe peripheral arterial disease status post amputation below-knee of the left lower extremity and had multiple TIAs, diabetes, hypertension, hyperlipidemia, admitted with altered mental status and also had atrial fibrillation. The patient was transferred to TCU. Called to evaluate the patient. PAST MEDICAL HISTORY: As above. SOCIAL HISTORY: Does not smoke. Does not drink. REVIEW OF SYSTEMS: A 10-point review of systems was negative except left lower extremity amputation below-knee. PHYSICAL EXAMINATION: HEENT: Normocephalic and atraumatic. NECK: Supple. NEUROLOGIC: Awake and oriented to self, not to the place and time. Cranial nerves II through XII were tested. Pupils reactive. Spontaneous movements of the extremities noted. Deep tendon reflexes 1+. Status post left leg below-knee amputation. IMPRESSION AND PLAN: A 68-year-old female with past medical history significant for coronary artery disease, dementia, multiple transient ischemic attacks, peripheral vascular disease status post left below-knee amputation, hypertension, diabetes, peripheral arterial disease was admitted with altered mental status. MRI showed left hemispheric left temporal infarct, acute. The patient in TRCU rehabilitation. Swallowing evaluation. Continue present management. We will follow up and also has dementia. Fahad Hernandez MD
--- NOTE | 2018-10-02 03:19 | PN ---
DATE: 10/01/2018 SUBJECTIVE: The patient has no complaints of any chest pain, no shortness of breath, no headaches. PHYSICAL EXAMINATION: VITAL SIGNS: Temperature is 98.1, pulse is 74, blood pressure 114/70, respirations 20. GENERAL: The patient is lying in bed, flat, comfortable. HEENT: No oral lesion. Anicteric sclerae. Moist mucosa. NECK: No JVD, adenopathy, or thyromegaly. CARDIOVASCULAR: S1 and S2, regular. No murmurs, rubs, or gallops. LUNGS: Clear to auscultation bilaterally. No wheeze, rales, or rhonchi. ABDOMEN: Bowel sounds are positive, soft, nontender and nondistended. EXTREMITIES: No cyanosis, clubbing or edema. ASSESSMENT: 1. Acute cerebrovascular accident of the left posterior temporal lobe. 2. Coronary artery disease. 3. Dyslipidemia. 4. Diabetes type 2. 5. . 6. Osteoarthritis. 7. Anxiety. 8. Constipation. 9. Urinary tract infection secondary to Escherichia coli. 10. Atrial fibrillation, on Eliquis. PLAN: The patient is currently feeling well. She is currently on metformin twice a day for diabetes as well as glipizide. She just started on Levemir for her diabetes. She is on Lipitor for dyslipidemia. She is on Vantin for her antibiotics for the E. coli. She is on Colace for her constipation. She is on a heart-healthy diet. She is getting physical therapy. The patient was able to walk 90 feet with a rolling walker. Dionicio Lyons MD
[2018-10-02] MEDS: Insulin Reg-MEDIUM-Coverage SC SCH ×4 (06:51→22:11)
[2018-10-02] MEDS: Metoprolol Succinate 25 mg XL Tab PO SCH (08:43)
[2018-10-02] MEDS: Cefpodoxime (Vantin) 200 mg Tab PO SCH ×2 (10:33→21:40)
--- NOTE | 2018-10-02 13:32 | PN ---
DATE: 10/02/2018 LOCATION: The patient is in room 314, bed 1. REASON FOR CONSULTATION AND FOLLOWUP: Coronary artery disease, COPD, atrial fibrillation, TIA, dementia, deconditioning. Followup Transitional Care Unit. SUBJECTIVE: The patient denies any chest pain, shortness of breath, palpitation. The patient is sitting comfortably in chair. PHYSICAL EXAMINATION: VITAL SIGNS: Blood pressure 110/65, respirations 20, pulse 74. The patient is afebrile. HEENT: Head is normocephalic. Eyes; pupils normal. Conjunctivae normal. NECK: JVP low. Carotids equal. THORAX: AP diameter normal. LUNGS: Clear. CARDIOVASCULAR: S1 and S2. ABDOMEN: Soft. No tenderness. No organomegaly. Bowel sounds normal. EXTREMITIES: No clubbing. No cyanosis. LABORATORY DATA: Blood sugar is 198. Other labs were done on medical floor, they were reported progress notes from medical floor. DIAGNOSES: Coronary artery disease, coronary artery bypass graft surgery many years ago, dementia, severe peripheral arterial disease, status post below-knee amputation on the left, history of multiple transient ischemic attacks, diabetes, hypertension, hyperlipidemia, while admitted with altered mental status, later on went to atrial fibrillation. The patient also on deconditioning, so the patient is on Transitional Care Unit. RECOMMENDATION/PLAN: The patient was put on Eliquis because of atrial fibrillation. We will continue Eliquis. We will continue glipizide, metformin, aspirin, atorvastatin. Continue physical therapy. Recent echo showed LV ejection fraction of 65%. Echo was done on 09/23/2018, trace aortic regurgitation, moderate mitral regurgitation, trace tricuspid regurgitation. Repeat EKG on 09/23/2018, the patient in atrial fibrillation, heart rate normal at 81, so we will continue anticoagulation with Eliquis. Continue physical therapy. We will follow with you. Alfred Joiner MD
[2018-10-02] MEDS ORDERED: Insulin Detemir 100 units/ml Vial (Levemir) SC SCH (17:33)
--- NOTE | 2018-10-02 21:00 | PN ---
DATE: 10/02/2018 SUBJECTIVE: The patient has no complaints of any chest pain or shortness of breath. No headaches, dizziness. PHYSICAL EXAMINATION: VITAL SIGNS: Temperature is 98.3, pulse of 82, blood pressure 112/55, respirations 18. GENERAL: The patient is lying in bed, flat, comfortable. HEENT: No oral lesion. Anicteric sclerae. Moist mucosa. NECK: No JVD, adenopathy, or thyromegaly. CARDIOVASCULAR: S1 and S2, regular. No murmurs, rubs, or gallops. LUNGS: Clear to auscultation bilaterally. No wheeze, rales, or rhonchi. ABDOMEN: Bowel sounds are positive, soft, nontender and nondistended. EXTREMITIES: no cyanosis, clubbing or edema. ASSESSMENT: 1. Cerebrovascular accident of the left posterior temporal lobe. 2. Coronary artery disease. 3. Diabetes type 2. 4. Dyslipidemia. 5. Osteoarthritis. 6. Anxiety. 7. Constipation. 8. Urinary tract infection secondary to Escherichia coli. 9. Atrial fibrillation, on Eliquis. PLAN: The patient is on Colace for constipation. She is on nebulizer as needed. She is on aspirin daily for her stroke. She is going to continue with apixaban for her atrial fibrillation. She is on metformin for diabetes. She is on glipizide for her diabetes. She is going to continue with cefpodoxime for her UTI. The patient is also receiving Levemir in the evening. Her sugars are elevated. I will increase the patient's Levemir to try to get better control of the glucose. Dionicio Lyons MD
[2018-10-03] MEDS: Insulin Reg-MEDIUM-Coverage SC SCH ×4 (07:56→22:23)
[2018-10-03] MEDS: Metoprolol Succinate 25 mg XL Tab PO SCH (08:22)
[2018-10-03] MEDS: Cefpodoxime (Vantin) 200 mg Tab PO SCH ×2 (11:02→22:04)
--- NOTE | 2018-10-03 12:33 | PN ---
DATE: 10/03/2018 SUBJECTIVE: The patient has no complaints of any chest pain. No shortness of breath or headaches. She says she feels weak. PHYSICAL EXAMINATION: VITAL SIGNS: Temperature is 98.2, pulse of 82, blood pressure 117/50 and respirations 18. GENERAL: The patient is lying in bed, flat, comfortable. HEENT: No oral lesion. Anicteric sclerae. Moist mucosa. NECK: No JVD, adenopathy, or thyromegaly. CARDIOVASCULAR: S1 and S2, regular. No murmurs, rubs, or gallops. LUNGS: Clear to auscultation bilaterally. No wheeze, rales, or rhonchi. ABDOMEN: Bowel sounds are positive, soft, nontender and nondistended. EXTREMITIES: No cyanosis, clubbing or edema. ASSESSMENT: 1. Cerebrovascular accident of the left posterior temporal lobe. 2. Coronary artery disease. 3. Diabetes type 2. 4. Osteoarthritis. 5. Anxiety. 6. Constipation. 7. Urinary tract infection secondary to Escherichia coli. 8. Atrial fibrillation, on Eliquis. PLAN: The patient is getting physical therapy. She is going to continue with her physical therapy. I did review the therapy notes from yesterday. The patient is on nebulizer treatment. She is on Eliquis for anticoagulation. She is on metformin and glipizide for her diabetes. The patient is on Vantin for her UTI. Her fingerstick remain elevated. I did increase her Levemir yesterday. I will increase her Levemir further. Dionicio Lyons MD
[2018-10-03] MEDS: Insulin Detemir 100 units/ml Vial (Levemir) SC SCH (22:03)
[2018-10-04] MEDS: Insulin Reg-MEDIUM-Coverage SC SCH ×4 (07:30→22:12)
[2018-10-04] MEDS: Metoprolol Succinate 25 mg XL Tab PO SCH (08:17)
[2018-10-04] MEDS: Cefpodoxime (Vantin) 200 mg Tab PO SCH ×2 (09:22→22:07)
--- NOTE | 2018-10-04 16:39 | PN ---
DATE: 10/04/2018 SUBJECTIVE: The patient has no complaints of any chest pain. No shortness of breath. No headaches. PHYSICAL EXAMINATION: VITAL SIGNS: Temperature is 98.2, pulse of 80, blood pressure is 130/86 and respirations are 18. GENERAL: The patient is lying in bed, flat, comfortable. HEENT: No oral lesion. Anicteric sclerae. Moist mucosa. NECK: No JVD, adenopathy, or thyromegaly. CARDIOVASCULAR: S1 and S2, regular. No murmurs, rubs, or gallops. LUNGS: Clear to auscultation bilaterally. No wheeze, rales, or rhonchi. ABDOMEN: Bowel sounds are positive, soft, nontender and nondistended. EXTREMITIES: No cyanosis, clubbing or edema. ASSESSMENT: 1. Cerebrovascular accident with left-sided temporal lobe involvement. 2. Coronary artery disease. 3. Diabetes type II. 4. Osteoarthritis. 5. Anxiety. 6. Constipation. 7. Urinary tract infection, secondary to Escherichia coli. 8. Atrial fibrillation on Eliquis. PLAN: The patient is currently comfortable. She is on Colace for constipation. She is on aspirin. Her fingerstick that are controlled with increasing the Levemir. The patient is on Lexapro. The patient is on Lipitor for dyslipidemia. She is on Seroquel for her agitation. She is on Vantin for her antibiotics for UTI. She is on heart-healthy diet. Dionicio Lyons MD
[2018-10-04] MEDS: Insulin Detemir 100 units/ml Vial (Levemir) SC SCH (22:13)
[2018-10-05] MEDS: Insulin Reg-MEDIUM-Coverage SC SCH ×4 (06:51→23:00)
[2018-10-05] MEDS: Metoprolol Succinate 25 mg XL Tab PO SCH (08:58)
--- NOTE | 2018-10-05 10:13 | PN ---
DATE: 10/05/2018 SUBJECTIVE: The patient has no complaints of any chest pain. No shortness of breath. No headaches or dizziness. PHYSICAL EXAMINATION: VITAL SIGNS: Temperature is 98.5, pulse of 54, blood pressure 105/68 and respirations are 18. GENERAL: The patient is lying in bed, flat, comfortable. HEENT: No oral lesion. Anicteric sclerae. Moist mucosa. NECK: No JVD, adenopathy, or thyromegaly. CARDIOVASCULAR: S1 and S2, regular. No murmurs, rubs, or gallops. LUNGS: Clear to auscultation bilaterally. No wheeze, rales, or rhonchi. ABDOMEN: Bowel sounds are positive, soft, nontender and nondistended. EXTREMITIES: No cyanosis, clubbing or edema. ASSESSMENT: 1. Gait dysfunction. 2. Cerebrovascular accident with left-sided temporal lobe involvement. 3. Coronary artery disease. 4. Diabetes type 2. 5. Osteoarthritis. 6. Anxiety. 7. Constipation. 8. Urinary tract infection secondary to Escherichia coli. 9. Atrial fibrillation on Eliquis. PLAN: The patient is currently comfortable. The patient's fingerstick this morning is 143. She is on glipizide and metformin. She is going to continue with her Levemir 18 units. She is going to have a gourmet coffee attendant, discussed the Levemir injections. She is on Lipitor for dyslipidemia. The patient is on Seroquel. She is going to continue Vantin. She is on a heart healthy diet. Dionicio Lyons MD
[2018-10-05] MEDS: Cefpodoxime (Vantin) 200 mg Tab PO SCH ×2 (11:00→22:00)
--- NOTE | 2018-10-05 18:13 | PN ---
DATE: 10/05/2018 REASON FOR CONSULTATION AND FOLLOWUP: Coronary artery disease, COPD, atrial fibrillation, TIA, history of dementia, cardiac evaluation, and continue care in transitional care unit. SUBJECTIVE: The patient denies any chest pain, shortness of breath, or palpitations. Feels better. PHYSICAL EXAMINATION: GENERAL: Not in apparent distress. VITAL SIGNS: Temperature afebrile, heart rate 54, blood pressure 122/60. HEENT: PERRLA. Extraocular muscles intact. NECK: Supple. No carotid bruits. No thyromegaly. CHEST: Clear to auscultation. HEART: S1 and S2 regular. ABDOMEN: Soft. EXTREMITIES: Clubbing, cyanosis negative. LABORATORY DATA: Blood workup as follows. Fasting blood sugar of 227. IMPRESSION: A 68-year-old female with past medical history significant for coronary artery disease status post coronary artery bypass graft many years ago, history of dementia, history of , peripheral arterial disease status post below-knee right amputation. History of multiple transient ischemic attacks, hypertension, hyperlipidemia, peripheral arterial disease as mentioned, admitted with altered mental status, found to be in atrial fibrillation. Now the patient is transferred to the Transitional Care Unit for continuity of care. Because of history of multiple transient ischemic attacks in the past, history of atrial fibrillation, the patient started on Eliquis. RECOMMENDATIONS: Continue Eliquis. Continue metformin. Continue rehab. Continue baby aspirin. Last echo of patient dated 09/23/2018, ejection fraction is 65%. Trace aortic regurgitation. Mild to moderate regurgitation. Tricuspid regurgitation. No pericardial effusion. Repeat EKG in 09/23/2018. Heart rate 81. Still in atrial fibrillation. Continue Eliquis 5 mg p.o. b.i.d. Continue aspirin. Continue insulin. Continue rehab. Will follow with you. Thank you Dr. Lyons for providing us the opportunity in taking care of the patient Lv Lyon. Alfred Ron MD
[2018-10-05] MEDS: Insulin Detemir 100 units/ml Vial (Levemir) SC SCH (22:00)
[2018-10-06] MEDS: Insulin Reg-MEDIUM-Coverage SC SCH ×4 (07:41→22:00)
[2018-10-06] MEDS: Metoprolol Succinate 25 mg XL Tab PO SCH (07:51)
[2018-10-06] MEDS: Cefpodoxime (Vantin) 200 mg Tab PO SCH (09:25)
[2018-10-06 11:45] VITALS: RESP 14; TEMP 97.9; O2SAT 98
--- NOTE | 2018-10-06 15:25 | PN ---
DATE: 10/06/2018 REASON FOR CONSULTATION: Coronary artery disease, COPD, atrial fibrillation, history of dementia, cardiac evaluation and continued care in Transitional Care Unit. SUBJECTIVE: The patient denies any chest pain, shortness of breath, any palpitation. OBJECTIVE: GENERAL: Not in apparent distress. Getting cleaned now. VITAL SIGNS: Temperature afebrile. Heart rate 75 and blood pressure 112/69. HEENT: PERRLA. Extraocular muscles intact. NECK: Supple. No carotid bruits. No thyromegaly. CHEST: Clear to auscultation. HEART: S1 and S2, regular. ABDOMEN: Soft. EXTREMITIES: Clubbing and cyanosis, negative. IMPRESSION: A 68-year-old female with past medical history significant for coronary artery disease, status post coronary artery bypass graft, bypass graft many years ago, history of dementia, history of peripheral arterial disease, status post below knee right amputation, history of multiple transient ischemic attack, history of hypertension and hyperlipidemia. Now, the patient is in Transitional Care Unit with history of atrial fibrillation, on Eliquis admitted at this time with atrial fibrillation. RECOMMENDATIONS: Continue Eliquis. Continue metformin. Continue rehab. Continue aspirin. Last echo dated 09/23/2018, ejection fraction 65%, trace tricuspid regurgitation, moderate mitral regurgitation, trace aortic regurgitation. Continue rehab and continue current medication that as mentioned Eliquis for atrial fibrillation. Continue treatment of COPD. Continue aspirin. Continue atorvastatin. stable. We will follow. We will repeat the blood workup in the morning. Thank you Dr. Lyons for providing us the opportunity in taking care of the patient, Camron Awan. Alfred Ron MD
--- NOTE | 2018-10-06 19:40 | PN ---
DATE: 10/06/2018 SUBJECTIVE: The patient has no complaints of any chest pain. No shortness of breath. No headache. PHYSICAL EXAMINATION: VITAL SIGNS: Temperature is 97.9, pulse of 80, blood pressure 112/72, respirations are 14, and O2 saturation is 98%. GENERAL: The patient is lying in bed, flat, comfortable. HEENT: No oral lesion. Anicteric sclerae. Moist mucosa. NECK: No JVD, adenopathy, or thyromegaly. CARDIOVASCULAR: S1 and S2, regular. No murmurs, rubs, or gallops. LUNGS: Clear to auscultation bilaterally. No wheeze, rales, or rhonchi. ABDOMEN: Bowel sounds are positive, soft, nontender and nondistended. EXTREMITIES: No cyanosis, clubbing or edema. ASSESSMENT: 1. Gait dysfunction. 2. Urinary tract infection secondary to Escherichia coli. 3. Atrial fibrillation on Eliquis. 4. Cerebrovascular accident with left-sided temporal lobe involvement. 5. Coronary artery disease. 6. Diabetes type 2. 7. Osteoarthritis. 8. Anxiety. 9. Constipation. PLAN: The patient was started on Colace for constipation. He is going to get nebulizer treatment. She is on Eliquis for anticoagulation. She is on metformin for diabetes and she is on Glucotrol as well. She is on Levemir for her diabetes. Her sugar is better controlled. She is on Lipitor for dyslipidemia. She is on Vantin for her urinary tract infection. I will discontinue her Vantin at this point. She has been adequately treated for her urinary tract infection. Dionicio Lyons MD
[2018-10-06] MEDS: Insulin Detemir 100 units/ml Vial (Levemir) SC SCH (23:06)
[2018-10-07 06:44] LABS: BASO # 0.03 K/mm3 (0.0-2.0); BASO % 0.3 % (0.0-3.0); EOS # 0.3 (0.0-0.7); EOS % 2.7 % (1.5-5.0); HEMOGLOBIN 10.1 g/dL (12.0-16.0); LYMPH # 2.5 (1.2-3.4); MEAN CELL VOLUME 89.3 fl (80.0-105.0); MEAN CORPUSCULAR HEMOGLOBIN 27.8 pg (25.0-35.0); MEAN CORPUSCULAR HGB CONC 31.2 g/dl (31.0-37.0); MEAN PLATELET VOLUME 10.6 fl (7.0-11.0); MONO # 0.6 (0.1-0.6); MONO % 6.3 % (1.0-6.0); RBC 3.63 10^6/uL (3.5-6.1); WHITE BLOOD COUNT 10.1 10^3/uL (4.5-11.0)
[2018-10-07 07:03] LABS: BLOOD UREA NITROGEN 24 mg/dL (7-21); CALCIUM 9.2 mg/dL (8.4-10.5); GFR NON-AFRICAN AMERICAN > 60
[2018-10-07] MEDS: Metoprolol Succinate 25 mg XL Tab PO SCH (09:00)
[2018-10-07 10:55] VITALS: BP 111/68; PULSE 91
[2018-10-07] MEDS: Insulin Reg-MEDIUM-Coverage SC SCH (12:09)
--- NOTE | 2018-10-07 12:59 | CP.PCM.DIS ---
<Gonzales Man - Last Filed: 10/07/18 15:51> Provider - Provider Date of Admission: 09/29/18 15:29 Attending physician: Dionicio Lyons MD Primary care physician: Inderjit Hayes MD Consults: 09/29/18 16:40 Physician Consult Routine Comment: Consulting Provider: Alfred Ron Consulting Physician: Alfred Ron Reason for Consult: new A-fib 09/29/18 16:41 Physician Consult Routine Comment: Consulting Provider: Tre Hernandez Consulting Physician: Tre Hernandez Reason for Consult: CVA 09/29/18 16:42 Physician Consult Routine Comment: Consulting Provider: Stefania Verdugo Consulting Physician: Stefania Verdugo Reason for Consult: agitation,dementia 09/30/18 10:46 VNA [Case Management Referral] Routine Comment: Physician Instructions: Reason For Exam: VNA SN evaluation for home health evaluation. Reason for Referral: VNA Eval 10/05/18 10:56 Diabetic Education Referral Routine Comment: Physician Instructions: Reason For Exam: new medication lantus Time Spent in preparation of Discharge (in minutes): 50 Diagnosis - Discharge Diagnosis (1) CVA (cerebral vascular accident) Status: Acute (2) Hypertension Status: Chronic (3) Peripheral vascular disease Status: Chronic Hospital Course - Lab Results Lab Results: Most Recent Lab Values WBC 10.1 10^3/uL (4.5-11.0) 10/07/18 05:30 RBC 3.63 10^6/uL (3.5-6.1) 10/07/18 05:30 Hgb 10.1 g/dL (12.0-16.0) L 10/07/18 05:30 Hct 32.4 % (36.0-48.0) L 10/07/18 05:30 MCV 89.3 fl (80.0-105.0) 10/07/18 05:30 MCH 27.8 pg (25.0-35.0) 10/07/18 05:30 MCHC 31.2 g/dl (31.0-37.0) 10/07/18 05:30 RDW 15.0 % (11.5-14.5) H 10/07/18 05:30 Plt Count 240 10^3/uL (120.0-450.0) 10/07/18 05:30 MPV 10.6 fl (7.0-11.0) 10/07/18 05:30 Neut % (Auto) 65.7 % (50.0-68.0) 10/07/18 05:30 Lymph % (Auto) 25.0 % (22.0-35.0) 10/07/18 05:30 [place] % (Auto) 6.3 % (1.0-6.0) H 10/07/18 05:30 Eos % (Auto) 2.7 % (1.5-5.0) 10/07/18 05:30 Baso % (Auto) 0.3 % (0.0-3.0) 10/07/18 05:30 Lymph # (Auto) 2.5 (1.2-3.4) 10/07/18 05:30 [place] # (Auto) 0.6 (0.1-0.6) 10/07/18 05:30 Eos # (Auto) 0.3 (0.0-0.7) 10/07/18 05:30 Baso # (Auto) 0.03 K/mm3 (0.0-2.0) 10/07/18 05:30 Absolute Neuts (auto) 6.67 (1.4-6.5) H 10/07/18 05:30 Sodium 138 mmol/L (132-148) 10/07/18 05:30 Potassium 4.5 mmol/L (3.6-5.0) 10/07/18 05:30 Chloride 99 mmol/L (98-107) 10/07/18 05:30 Carbon Dioxide 29 mmol/L (21-33) 10/07/18 05:30 Anion Gap 14 (10-20) 10/07/18 05:30 BUN 24 mg/dL (7-21) H 10/07/18 05:30 Creatinine 0.7 mg/dl (0.7-1.2) 10/07/18 05:30 Est GFR ( Amer) > 60 10/07/18 05:30 Est GFR (Non-Af Amer) > 60 10/07/18 05:30 POC Glucose (mg/dL) 295 mg/dL (65-110) H 10/07/18 11:16 Random Glucose 112 mg/dL (70-110) H 10/07/18 05:30 Calcium 9.2 mg/dL (8.4-10.5) 10/07/18 05:30 - Hospital Course Hospital Course: Gonzales Man D.O. PGY-3, Internal Medicine Resident, Dr. Lyons's Service, Discharge Summary 68 year old female with a PMH of multiple TIAs, HTN, DM2 with neuropathy, HLD, CAD s/p CABG who presented for reports of sudden episode of AMS with associated aphasia, not following commands or speaking, found to have a CVA involving the left temporal lobe at that time and was later transferred to the transitional care unit for continued rehabilitation and physical therapy. Patient completed 8 days of therapy in the TCU. Patient was seen by neurology who recommended continuation of the current management which included aspirin and Eliquis. Patient was also seen by cardiology who agreed to continue with Eliquis, aspirin, atorvastatin. Patient had improvements in her physical capabilities and the recommendation was for discharge home with services. Patient was seen and examined this morning at bedside resting comfortably. Patient appears at her baseline mental state. Discussed discharge planning with case management who has spoken with the patient's daughter. Patient will be returning home with home services. They have been preparing their home for her arrival. Patient has a private aide/homemaker. Patient also has a large support group with her family. Clear discharge and instructions to follow-up with primary medical doctor within 1 to 2 weeks. Medication reconciliation was done and new or changed medications were given in new paper scripts. Patient was discharged via stretcher with family member at bedside with Medicaid transportation at 12:45 PM. - Date & Time of H&P Date of H&P: 10/07/18 Time of H&P: 12:00 Discharge Exam - Head Exam Head Exam: ATRAUMATIC, NORMOCEPHALIC - Eye Exam Eye Exam: EOMI. absent: Scleral icterus - ENT Exam ENT Exam: Mucous Membranes Moist - Neck Exam Neck exam: Normal Inspection - Respiratory Exam Respiratory Exam: absent: Rales, Rhonchi, Wheezes - Cardiovascular Exam Cardiovascular Exam: +S1, +S2 - GI/Abdominal Exam GI & Abdominal Exam: Normal Bowel Sounds, Soft. absent: Tenderness - Neurological Exam Neurological exam: Alert - Skin Skin Exam: Dry, Warm Discharge Plan - Discharge Medications Prescriptions: Apixaban [Eliquis] 5 mg PO BID #30 tab Aspirin [Ecotrin] 81 mg PO 0800 #30 tabec Insulin Detemir [Levemir] 18 unit SC HS 30 Days unit Metoprolol Succinate XL [Toprol XL] 25 mg PO 0800 #30 tab QUEtiapine [Seroquel] 25 mg PO HS #30 tab - Follow Up Plan Condition: GOOD Disposition: HOME/ ROUTINE Instructions: Preventing Falls in the Older Adult, Transient Ischemic Attack (DC), Altered Mental Status (DC) Additional Instructions: 1. Follow-up with primary medical doctor within 1 to 2 weeks. 2. Follow-up with subspecialists as indicated. 3. Scripts for new medications given. Please refer to updated medication reconciliation. 4. Maintain hydration. 5. Return to ER or seek immediate medical attention for any worsening symptoms or concerns. Referrals: Inderjit Hayes MD [Primary Care Provider] - <Dionicio Lyons - Last Filed: 10/07/18 16:01> Provider - Provider Date of Admission: 09/29/18 15:29 Attending physician: Dionicio Lyons MD Primary care physician: Inderjit Hayes MD Consults: 09/29/18 16:40 Physician Consult Routine Comment: Consulting Provider: Alfred Ron Consulting Physician: Alfred Ron Reason for Consult: new A-fib 09/29/18 16:41 Physician Consult Routine Comment: Consulting Provider: Tre Hernandez Consulting Physician: Tre Hernandez Reason for Consult: CVA 09/29/18 16:42 Physician Consult Routine Comment: Consulting Provider: Stefania Verdugo Consulting Physician: Stefania Verdugo Reason for Consult: agitation,dementia 09/30/18 10:46 VNA [Case Management Referral] Routine Comment: Physician Instructions: Reason For Exam: VNA SN evaluation for home health evaluation. Reason for Referral: VNA Eval 10/05/18 10:56 Diabetic Education Referral Routine Comment: Physician Instructions: Reason For Exam: new medication [facility] Course - Lab Results Lab Results: Most Recent Lab Values WBC 10.1 10^3/uL (4.5-11.0) 10/07/18 05:30 RBC 3.63 10^6/uL (3.5-6.1) 10/07/18 05:30 Hgb 10.1 g/dL (12.0-16.0) L 10/07/18 05:30 Hct 32.4 % (36.0-48.0) L 10/07/18 05:30 MCV 89.3 fl (80.0-105.0) 10/07/18 05:30 MCH 27.8 pg (25.0-35.0) 10/07/18 05:30 MCHC 31.2 g/dl (31.0-37.0) 10/07/18 05:30 RDW 15.0 % (11.5-14.5) H 10/07/18 05:30 Plt Count 240 10^3/uL (120.0-450.0) 10/07/18 05:30 MPV 10.6 fl (7.0-11.0) 10/07/18 05:30 Neut % (Auto) 65.7 % (50.0-68.0) 10/07/18 05:30 Lymph % (Auto) 25.0 % (22.0-35.0) 10/07/18 05:30 [place] % (Auto) 6.3 % (1.0-6.0) H 10/07/18 05:30 Eos % (Auto) 2.7 % (1.5-5.0) 10/07/18 05:30 Baso % (Auto) 0.3 % (0.0-3.0) 10/07/18 05:30 Lymph # (Auto) 2.5 (1.2-3.4) 10/07/18 05:30 [place] # (Auto) 0.6 (0.1-0.6) 10/07/18 05:30 Eos # (Auto) 0.3 (0.0-0.7) 10/07/18 05:30 Baso # (Auto) 0.03 K/mm3 (0.0-2.0) 10/07/18 05:30 Absolute Neuts (auto) 6.67 (1.4-6.5) H 10/07/18 05:30 Sodium 138 mmol/L (132-148) 10/07/18 05:30 Potassium 4.5 mmol/L (3.6-5.0) 10/07/18 05:30 Chloride 99 mmol/L (98-107) 10/07/18 05:30 Carbon Dioxide 29 mmol/L (21-33) 10/07/18 05:30 Anion Gap 14 (10-20) 10/07/18 05:30 BUN 24 mg/dL (7-21) H 10/07/18 05:30 Creatinine 0.7 mg/dl (0.7-1.2) 10/07/18 05:30 Est GFR ( Amer) > 60 10/07/18 05:30 Est GFR (Non-Af Amer) > 60 10/07/18 05:30 POC Glucose (mg/dL) 295 mg/dL (65-110) H 10/07/18 11:16 Random Glucose 112 mg/dL (70-110) H 10/07/18 05:30 Calcium 9.2 mg/dL (8.4-10.5) 10/07/18 05:30 - Hospital Course Hospital Course: Pt seen and examined by me. I have reviewed the note of the director medical and I agree with it. I have discussed the assessment and plan with the resident. I have reviewed the medications and the last labs. Pt on ASA for CAD. Se is on Insulin for her DM-2. She is going to be discharged home today. She is on Eliquis for A fib. Eating ok. No pain. Atorvastatin for dyslipidemia.
--- NOTE | 2018-10-07 15:56 | PN ---
DATE: 10/07/2018 LOCATION: The patient is in room 318, bed 1. REASON FOR CONSULTATION AND FOLLOWUP: Coronary artery disease, COPD, atrial fibrillation, history of dementia, cardiac evaluation, continue care in Transitional Care Unit for deconditioning. SUBJECTIVE: The patient lying flat in bed without any cardiac symptoms. No chest pain, shortness of breath or palpitation. PHYSICAL EXAMINATION: VITAL SIGNS: Blood pressure 111/68, respirations 14, pulse 91. The patient is afebrile. HEENT: Head is normocephalic. Eyes; pupils normal. Conjunctivae slightly pale. NECK: JVP low. Carotids equal. THORAX: AP diameter normal. LUNGS: Clear. CARDIOVASCULAR: S1, S2. ABDOMEN: Soft. No tenderness. No organomegaly. Bowel sounds normal. EXTREMITIES: No clubbing. No cyanosis. LABORATORY DATA: WBC 10.1, hemoglobin 10.1, hematocrit 32.4, platelets 240. Sodium 138, potassium 4.5, BUN 27, creatinine 0.7, random sugar 117 and the second was 295, also random glucose was 112, calcium 9.2. DIAGNOSES: Coronary artery disease status post coronary artery bypass graft many years ago, history of dementia, history of peripheral vascular disease, status post below-knee right leg amputation, history of multiple transient ischemic attacks, history of hypertension, hyperlipidemia. The patient on Transitional Care Unit for deconditioning. The patient also has history of atrial fibrillation. RECOMMENDATION AND PLAN: Continue Eliquis for atrial fibrillation and metformin. Last echo 09/23/2018 showed ejection fraction 65%, trace tricuspid regurgitation, moderate mitral regurgitation, trace aortic regurgitation. Continue therapy for chronic obstructive pulmonary disease and continue aspirin, atorvastatin. We will continue to follow closely. Clinically, cardiac status at present is stable. Alfred Joiner MD
== END 2018-10-07 13:48 | disposition home or self-care (01) | DRG 65 ==
LOC: TRCU 15:29
PROVIDERS: ADMIT Internal Medicine Nephrology; ATTEND Internal Medicine Nephrology
PROC: F07Z9FZ Gait Training/Functional Ambulation Treatment using Assistive, Adaptive, Supportive or Protective Equipment (ICD-10-PCS; principal; 2018-09-30)
PROC: F07M6ZZ Therapeutic Exercise Treatment of Musculoskeletal System - Whole Body (ICD-10-PCS; 2018-09-30)
PROC: F08Z2ZZ Grooming/Personal Hygiene Treatment (ICD-10-PCS; 2018-09-30)
PROC: F08Z1ZZ Dressing Techniques Treatment (ICD-10-PCS; 2018-09-30)
PROC: F08Z0ZZ Bathing/Showering Techniques Treatment (ICD-10-PCS; 2018-09-30)
DX: I63.9 Cerebral infarction, unspecified (principal); N39.0 Urinary tract infection, site not specified; I10 Essential (primary) hypertension; E11.51 Type 2 diabetes mellitus with diabetic peripheral angiopathy without gangrene; E11.40 Type 2 diabetes mellitus with diabetic neuropathy, unspecified; B96.20 Unspecified Escherichia coli [E. coli] as the cause of diseases classified elsewhere; E78.5 Hyperlipidemia, unspecified; F03.90 Unspecified dementia, unspecified severity, without behavioral disturbance, psychotic disturbance, mood disturbance, and anxiety; F41.9 Anxiety disorder, unspecified; I25.10 Atherosclerotic heart disease of native coronary artery without angina pectoris; I48.91 Unspecified atrial fibrillation; J44.9 Chronic obstructive pulmonary disease, unspecified; K21.9 Gastro-esophageal reflux disease without esophagitis; K59.00 Constipation, unspecified; M19.90 Unspecified osteoarthritis, unspecified site; R47.01 Aphasia; Z79.01 Long term (current) use of anticoagulants; Z79.02 Long term (current) use of antithrombotics/antiplatelets; Z79.82 Long term (current) use of aspirin; Z79.84 Long term (current) use of oral hypoglycemic drugs; Z79.899 Other long term (current) drug therapy; Z86.73 Personal history of transient ischemic attack (TIA), and cerebral infarction without residual deficits; Z89.512 Acquired absence of left leg below knee; Z95.1 Presence of aortocoronary bypass graft